=== PATIENT | male | born 1955 | race Caucasian/White ===

== ENCOUNTER 2020-09-16 09:06 | Outpatient (CLI) | payer OTHER, SELFPAY ==
--- NOTE | ~2020-09-16 | XR_ITS ---
EXAMINATION: XR shoulder LT min 2V EXAM DATE: 09/16/2020 09:33 INDICATION: No known recent injury provided at this time. Pain of the left shoulder. Rotator cuff syn drome. TECHNIQUE: The following left shoulder projections obtained: frontal projection with internal rotatio n, frontal projection with external rotation, Grashey, and axillary (4+ views). There is no prior st udy for comparison. FINDINGS: No evidence of left shoulder rotator cuff calcific tendinosis. There is mild glenohumeral, moderate acromioclavicular joint primary osteoarthritis. There are no acute fractures or dislocation s identified. There is no subcutaneous gas. The soft tissue is unremarkable. There are no radiopa que foreign bodies. 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 Reviewed, dictated and finalized at location A. AL PHOTOGRAPHER
[2020-09-16 09:36] LABS: Alanine Aminotransferase 48 U/L (4-50); Anion Gap 7 mmol/L (8-16); Blood Urea Nitrogen 16 mg/dL (9-20); Calcium 8.9 mg/dL (8.4-10.2); Carbon Dioxide 29 mmol/L (22-30); Chloride 103 mmol/L (98-107); Cholesterol 172 mg/dL (0-200); Estimated Glomerular Filt Rate > 60; Glucose 150 mg/dL (75-110); HDL Direct 35 mg/dL; Potassium 3.8 mmol/L (3.4-5.0); Sodium 139 mmol/L (137-145); Triglycerides 119 mg/dL (<150)
[2020-09-16 09:47] LABS: LDL Cholesterol Direct 120 mg/dL
[2020-09-16 10:11] LABS: Hemoglobin A1C 6.6 % (<5.7)
[2020-09-16 10:29] LABS: Creatinine Urine 159.3 mg/dL
[2020-09-16 10:40] LABS: MALB Creatinine Ratio < 3.8 mg/g (0-30); Microalbumin Urine Random < 6.0 mg/L (0-16.7)
== END 2020-09-16 09:07 | disposition home or self-care (01) ==
LOC: ANHLAB 09:09
PROVIDERS: PCP Family Medicine; Visit Provider Family Medicine
DX: E11.9 Type 2 diabetes mellitus without complications (principal); E78.00 Pure hypercholesterolemia, unspecified
CPT/HCPCS: 36415; 73030; 80048; 80061; 82043; 83036; 84460

== ENCOUNTER 2020-11-15 08:44 | Outpatient (CLI) | payer OTHER, SELFPAY | END 2020-11-15 08:45 | disposition home or self-care (01) | LOC: ANHAUDASC 08:45 | PROVIDERS: PCP Family Medicine; Visit Provider Family Medicine | DX: H90.3 Sensorineural hearing loss, bilateral (principal) | CPT/HCPCS: 92557; 92567 ==

== ENCOUNTER 2020-12-23 08:32 | Outpatient (CLI) | payer OTHER, SELFPAY ==
--- NOTE | ~2020-12-23 | MR_ITS ---
EXAMINATION: MR shoulder LT wo con DATE: 12/23/2020 09:24 INDICATION: Complete rotator cuff tear or rupture presenting with left shoulder pain TECHNIQUE: Magnetic resonance imaging (MRI) of the left shoulder was performed without intravenous co ntrast. Sequences included axial PD-weighted FS FSE, coronal oblique PD-weighted FS FSE, coronal obli que T2-weighted FS FSE, sagittal PD-weighted FS FSE, and sagittal T1-weighted SE. COMPARISON: Left shoulder radiographs dated 09/16/2020 FINDINGS: Coracoacromial arch: The acromion undersurface is curved in morphology (type II). The coracoacromial ligament is normal. M ild acromioclavicular osteoarthritis with small inferiorly directed osteophytes. Rotator cuff: Mild to moderate supraspinatus and infraspinatus tendinopathy. Full-thickness rotator cuff tear occur ring along the superior facet footplate of the supraspinatus tendon and conjoined portion of the supr aspinatus and infraspinatus tendons. The tear defect measures 1.6 cm AP and 1 cm medial to lateral. P artial-thickness articular sided tear extends additional 1 cm posteriorly into the infraspinatus tend on. The teres minor tendon is normal. Moderate subscapularis tendinopathy with small intrasubstance d elaminating split tear arising from the central aspect of the lesser tuberosity footplate with linear fluid signal extending 2 cm medially along the otherwise intact appearing tendon fibers. Asymmetric mild fatty atrophy of the teres minor muscle belly. Biceps tendon, glenoid labrum and glenohumeral cartilage: Long head of the biceps tendon is normal. Amorphous increased intrasubstance signal at the superior g lenoid labrum and along the free edge of the posterior superior labrum consistent with likely degener ative tearing. No well-defined linear labral tear appreciated. Glenohumeral cartilage is normal. Fluid: Small glenohumeral joint effusion with proportional extension into the recess of the joint space, the long head biceps tendon sheath and into the subacromial/subdeltoid bursa through the full-thickness rotator cuff tear. No loose osteochondral bodies. Bones: Normal marrow signal with no fracture or abnormal marrow replacing process. Minimal hypertrophic deutsch ge along the greater tuberosity. IMPRESSION: 1. Mild to moderate supraspinatus and infraspinatus tendinopathy with full-thickness tear involving t he entire supraspinatus tendon transitioning to a partial-thickness articular sided tear of the more posterior infraspinatus tendon. 2. Mild subscapularis tendinopathy with small mild intrasubstance delaminating split tear. 3. Degenerative tearing at the superior to posterior superior glenoid labrum. 4. Mild acromioclavicular osteoarthritis. Reviewed, dictated and finalized at location A. ER STOCK LAYER IMPRESSION: 1. Mild to moderate supraspinatus and infraspinatus tendinopathy with full-thic kness tear involving the entire supraspinatus tendon transitioning to a partial -thickness articular sided tear of the more posterior infraspinatus tendon. 2. Mild subscapularis tendinopathy with small mild intrasubstance delaminating split tear. 3. Degenerative tearing at the superior to posterior superior glenoid labrum. 4. Mild acromioclavicular osteoarthritis.
== END 2020-12-23 08:33 | disposition home or self-care (01) ==
PROVIDERS: Visit Provider Orthopaedic Surgery
DX: M75.122 Complete rotator cuff tear or rupture of left shoulder, not specified as traumatic (principal); M75.82 Other shoulder lesions, left shoulder; S43.432A Superior glenoid labrum lesion of left shoulder, initial encounter; M19.012 Primary osteoarthritis, left shoulder
CPT/HCPCS: 73221

== ENCOUNTER 2021-01-13 08:47 | Outpatient (CLI) | payer OTHER, SELFPAY ==
[2021-01-13 09:10] LABS: Hematocrit 42.5 % (42.0-52.0); Hemoglobin 14.8 g/dL (14.0-18.0); Mean Corpuscular HGB Conc 34.8 g/dl (32-36); Mean Corpuscular Hemoglobin 34.9 pg (26-34); Mean Corpuscular Volume 100.2 fl (80-100); Mean Platelet Volume 9.9 fl (7.4-10.4); Platelet Count Result 164 k/mm3 (150-375); Red Blood Count 4.24 M/mm3 (4.6-6.20); Red Cell Distribution Width 12.9 % (11.5-14.5); White Blood Count 4.7 K/mm3 (4.5-10.0)
[2021-01-13 09:12] LABS: Add Urine Microscopic? NO; Appearance Urine Clear (Clear); Bilirubin Urine Negative (Negative); Blood Urine Negative (Negative); Color Urine Yellow (Yellow); Glucose Urine UA Negative (Negative); Ketones Urine Negative (Negative); Leukocyte Esterase Ur Negative LEU/UL (NEGATIVE); Nitrate Urine Negative (Negative); Protein Urine Negative (Negative); Urobilinogen Urine Negative mg/dL (<2.0)
[2021-01-13 09:17] LABS: Alanine Aminotransferase 49 U/L (4-50); Albumin Level 4.2 g/dL (3.5-5.1); Alkaline Phosphatase 64 U/L (38-126); Anion Gap 8 mmol/L (8-16); Aspartate Amino Transferase 34 U/L (17-59); Bilirubin,Total 0.8 mg/dL (0.2-1.3); Blood Urea Nitrogen 13 mg/dL (9-20); Calcium 8.6 mg/dL (8.4-10.2); Carbon Dioxide 26 mmol/L (22-30); Chloride 104 mmol/L (98-107); Cholesterol 161 mg/dL (0-200); Estimated Glomerular Filt Rate > 60; Glucose 159 mg/dL (75-110); HDL Direct 35 mg/dL; Potassium 4.1 mmol/L (3.4-5.0); Sodium 138 mmol/L (137-145); Triglycerides 125 mg/dL (<150)
[2021-01-13 09:29] LABS: LDL Cholesterol Direct 101 mg/dL
[2021-01-13 09:47] LABS: Prostate Specific Antigen 0.9 ng/mL (< OR = 4.0); Thyroid Stimulating Hormone 0.995 uIU/mL (0.465-4.680)
== END 2021-01-13 08:48 | disposition home or self-care (01) ==
PROVIDERS: PCP Family Medicine; Visit Provider Family Medicine
DX: E78.5 Hyperlipidemia, unspecified (principal); I10 Essential (primary) hypertension; R35.1 Nocturia; Z00.00 Encounter for general adult medical examination without abnormal findings
CPT/HCPCS: 36415; 80053; 80061; 81003; 84153; 84443; 85027

== ENCOUNTER 2021-01-24 08:00 | Outpatient (RCR) | payer OTHER, SELFPAY | END 2021-02-27 23:59 | disposition home or self-care (01) | LOC: ANHAUDASC 08:00 | PROVIDERS: Family Provider Family Medicine; PCP Family Medicine; Visit Provider Family Medicine | DX: Z46.1 Encounter for fitting and adjustment of hearing aid (principal) | CPT/HCPCS: 99199; V5261; V5264 ==

== ENCOUNTER 2021-02-07 09:03 | Outpatient (CLI) | payer OTHER, SELFPAY ==
--- NOTE | ~2021-02-07 | NM_ITS ---
EXAMINATION: NM vanessa stress w perfusion DATE: 02/07/2021 11:39 INDICATION: Dyspnea on exertion. TECHNIQUE: Rest images were obtained following intravenous administration of 9 mCi Tc99m tetrofosmin (Myoview). The patient was infused intravenously with Lexiscan (regadenoson). Then, 27.2 mCi Tc99m te trofosmin (Myoview) was administered intravenously, and stress images were obtained. Data was reconst ructed into short axis and horizontal and vertical long axis SPECT images. Gated SPECT images were al so obtained. COMPARISON: CT abdomen and pelvis 07/16/2019 FINDINGS: There is no definite reversible or fixed perfusion abnormality to suggest ischemia or infar ction. There is no segmental wall motion abnormality. Left ventricular ejection fraction measures > 70%. IMPRESSION: 1. No definite ischemia or infarct. 2. Normal left ventricular ejection fraction measuring >70%. Reviewed, dictated and finalized at location A.
--- NOTE | 2021-02-07 09:09 | EST_ITS ---
Patient Info Name: Neymar De La Garza Age: 65 years : 1955 Gender: Male Ht: 66 in Wt: 299 lbs BSA: 2.59 m2 Exam Date: 02/07/2021 10:32 AM Exam Location: [facility] Patient Status: Outpatient Admit Date: 02/07/2021 Staff Ordering Physician: Royce Elizondo MD Attending Provider: Royce Elizondo MD Exercise Technologist: Milka Seymour CT Exercise Physician: Dejon Fowler DO Exam Type: CA stress vanessa w NM Study Info A regadenoson stress test was performed. Summary 1. 1. Negative lexiscan stress test for ischemic ST changes by ECG criteria. 2. 2. Baseline hypertension. 3. 3. Nuclear scan to follow and will be reported separately. Please correlate with it. 4. 4. Patient informed of the above results. Protocol: Lexiscan Stress ECG Details Stage: REST Duration (min): 11 min : 15 sec HR (bpm): 64 SBP (mmHg): 150 DBP (mmHg): 81 Stage: STAGE 1 Duration (min): 1 min : 0 sec HR (bpm): 74 SBP (mmHg): 155 DBP (mmHg): 107 Stage: RECOVERY Duration (min): 1 min : 0 sec HR (bpm): 76 SBP (mmHg): 155 DBP (mmHg): 107 Stage: RECOVERY Duration (min): 2 min : 0 sec HR (bpm): 76 SBP (mmHg): 155 DBP (mmHg): 107 Stage: RECOVERY Duration (min): 3 min : 0 sec HR (bpm): 73 SBP (mmHg): 147 DBP (mmHg): 95 Stage: RECOVERY Duration (min): 3 min : 2 sec HR (bpm): 73 SBP (mmHg): 147 DBP (mmHg): 95 Rest HR: 64 bpm Peak HR: 80 bpm Rest Sys BP: 150 mmHg Peak Sys BP: 155 mmHg Max Pred HR: 157 bpm % Max Pred HR: 51 % Target HR: 133 bpm Max RPP: 12,400 bpm*mmHg Termination Reason: Completed protocol Cardiac Symptoms: Shortness of breath Total Time: 1 min : 0 sec Rest Coronado BP: 81 mmHg Peak Coronado BP: 107 mmHg Total Dose: 0.4 mg Resting ECG Sinus rhythm with sinus arrhythmia. Stress ECG No ST changes. Arrhythmias None. Report Signatures
== END 2021-02-07 09:04 | disposition home or self-care (01) ==
PROVIDERS: PCP Family Medicine; Visit Provider Family Medicine
DX: R06.00 Dyspnea, unspecified (principal); R07.9 Chest pain, unspecified
CPT/HCPCS: 78452; 93017; A9502

== ENCOUNTER 2021-05-17 08:52 | Outpatient (CLI) | payer OTHER, SELFPAY ==
--- NOTE | ~2021-05-17 | CT_ITS ---
EXAMINATION: CT chest high resolution [facility] EXAM DATE: 05/17/2021 10:19 INDICATION: B94.8 - Sequelae of other specified infectious and parasitic diseases. Shortness of breat h and cough post COVID. TECHNIQUE: Spiral CT of the chest without contrast. HRCT. Axial, coronal and sagittal images of the chest were reviewed. Coronal maximum intensity pixel images of chest reviewed. The dose-length prod uct (DLP) for this examination was 1049.52 mGy-cm. The exposure was tailored according to patient si ze (auto mA exposure control), and iterative reconstruction (ASIR) was used as additional dose reduct ion technique. There is no prior study for comparison. FINDINGS: No intralobular septal thickening on the HRCT. No focal airspace disease. There are no ple ural or pericardial effusions. Tracheobronchial tree is patent. There is no mediastinal, hilar or axillary lymphadenopathy. There is no pneumothorax. Heart normal in size. There is moderate co ronary arterial calcification, arterial sclerosis. There is hepatic steatosis. There is thoracic sp ondylosis without osteoblastic or osteolytic lesions identified. IMPRESSION: 1. Clear lungs. 2. Hepatic steatosis. Reviewed, dictated and finalized at location B.
--- NOTE | 2021-05-21 10:37 | WPDSIXMINUTE ---
Six Minute Walk Procedure Procedure Performed Pulmonary Stress Test (6 min walk) Six Minute Walk Six Minute Walk: DOS: 05/17/2021 REQUESTING: Dr Elia Gonzalez REASON FOR TESTING: Dyspnea SIX MINUTE WALK This study was conducted per ATS guidelines. The room air saturation was 96% and the pulse was 53. The patient walked 6 minutes without stopping completing 1200 ft/ 365.7 m. Saturation varied between 93 and 98%. Maximum pulse is 95. IMPRESSION: Normal walk study without need for supplemental oxygen with exertion.
--- NOTE | 2021-05-21 10:39 | WPDPFTINT ---
PFT Procedure Performed PFT Procedure Performed Spirometry with Pre/Post Bronchodilator Plethysmography (Lung Vol) Diffusing Cap (DLCO) Flow Vol Loop PFT Interpretation DOS: 05/17/2021 REQUESTING: Dr. Elia Gonzalez REASON FOR TESTING: Dyspnea PULMONARY FUNCTION TESTS Results are reliable. Spirometry: FEV1 is 95% predicted, 3 L. FVC is 89%. The FEV1/FVC ratio is normal. There is no response to administration of bronchodilator. Lung volumes: Total lung capacity is 99%. ERV is very low 12% consistent with elevated body mass index. Residual volume is normal. Normal RV/TLC 34%. Diffusion: DLCO 90%, normal. Flow volume loop: There is mild flattening of the inspiratory limb which suggests borderline variable extrathoracic obstruction. There is also a saw tooth pattern on the inspiratory limb. IMPRESSION: Normal spirometry, lung volumes and diffusion. Flattening of the inspiratory limb indicates borderline variable extrathoracic obstruction. Clinical correlation is recommended. Radha Ernst MD
== END 2021-05-17 08:53 | disposition home or self-care (01) ==
LOC: ANHPFT 08:53
PROVIDERS: PCP Family Medicine; Visit Provider Internal Medicine Pulmonary Disease
DX: R06.00 Dyspnea, unspecified (principal); B94.8 Sequelae of other specified infectious and parasitic diseases; J40 Bronchitis, not specified as acute or chronic; K76.0 Fatty (change of) liver, not elsewhere classified; Z72.0 Tobacco use; Z86.16 Personal history of COVID-19
CPT/HCPCS: 71250; 94060; 94618; 94726; 94729

== ENCOUNTER 2021-08-04 08:44 | Outpatient (CLI) | payer OTHER, SELFPAY ==
--- NOTE | ~2021-08-04 | MR_ITS ---
EXAMINATION: MR lumbar spine wo con DATE: 08/04/2021 08:32 INDICATION: Spinal stenosis, lumbar region. TECHNIQUE: Magnetic resonance imaging (MRI) of the lumbar spine was performed without intravenous con trast. Sequences included sagittal T2-weighted FSE, sagittal T2-weighted FS FSE, sagittal T1-weighted FSE, and axial T2-weighted FSE. COMPARISON: Lumbar spine MRI 10/17/2018 FINDINGS: There is 6 degrees levocurvature of lumbar spine. There is 3 mm retrolisthesis of L3 on L4 and L4-L5 and 6 mm anterolisthesis of L5 on S1. There is mild chronic anterior wedging of L1 and L2 v ertebral bodies. There is mildly decreased disc height at L1-L2 and severely decreased disc height fr om L2-L3 through L4-L5 with endplate remodeling. The distal spinal cord signal intensity is normal. T he conus medullaris is at L1. The following disc levels are specifically discussed: L1-L2: There is a left central extrusion. There is mild bilateral facet joint osteoarthritis. There i s no neural foraminal stenosis. There is mild central canal stenosis. L2-L3: The disc is bulging and has an annular fissure. There is mild bilateral facet joint osteoarthr itis. There is mild bilateral neural foraminal stenosis. There is mild central canal stenosis. L3-L4: The disc is bulging and has an annular fissure. There is moderate bilateral facet joint osteoa rthritis. There is moderate bilateral neural foraminal stenosis. There is mild central canal stenosis . L4-L5: The disc is bulging and has an annular fissure. There is severe bilateral facet joint osteoart hritis. There is severe bilateral neural foraminal stenosis. There is mild central canal stenosis. Th ere is moderate stenosis of left lateral recess. L5-S1: The disc does not extend beyond the endplate margin. There is severe bilateral facet joint ost eoarthritis. There is moderate bilateral neural foraminal stenosis. There is no central canal stenosi s. IMPRESSION: 1. Severe lumbar spondylosis, worsened from 10/17/2018. Reviewed, dictated and finalized at location A.
[2021-08-04 09:23] LABS: Alanine Aminotransferase 52 U/L (4-50); Albumin Level 4.5 g/dL (3.5-5.1); Alkaline Phosphatase 65 U/L (38-126); Anion Gap 9 mmol/L (8-16); Aspartate Amino Transferase 34 U/L (17-59); Bilirubin,Total 0.8 mg/dL (0.2-1.3); Blood Urea Nitrogen 19 mg/dL (9-20); Calcium 8.9 mg/dL (8.4-10.2); Carbon Dioxide 28 mmol/L (22-30); Chloride 103 mmol/L (98-107); Estimated Glomerular Filt Rate > 60; Glucose 174 mg/dL (65-110); Potassium 4.5 mmol/L (3.4-5.0); Sodium 140 mmol/L (137-145)
[2021-08-04 09:24] LABS: Hemoglobin A1C 7.1 % (<5.7)
== END 2021-08-04 08:45 | disposition home or self-care (01) ==
PROVIDERS: PCP Family Medicine; Visit Provider Family Medicine
DX: M48.061 Spinal stenosis, lumbar region without neurogenic claudication (principal); G89.29 Other chronic pain; R53.83 Other fatigue; I10 Essential (primary) hypertension; R73.01 Impaired fasting glucose; M54.50 Low back pain, unspecified; M47.896 Other spondylosis, lumbar region
CPT/HCPCS: 36415; 72148; 80053; 83036; 84443

== ENCOUNTER 2021-09-07 20:00 | Outpatient (CLI) | payer OTHER, SELFPAY ==
--- NOTE | 2021-10-01 20:34 | WPDSLEEPSTUD ---
Sleep Study Date of Study: 09/07/21 Ordering Provider: John Gonzalez MD Interpreting Physician: Radha Ernst MD Sleep Study Type: Split Polysomnogram Height: 1.7 m Weight: 135.707 kg Body Mass Index: 46.8 Neck Circumference (inches): 19 [place]: 4 Reason for Sleep Study Obstructive sleep apnea on CPAP 10 cm, no change in treatment for years *05/04/2013 split night sleep study, AHI 102.6, optimal pressure 13 cm Sleep History Neymar De La Garza is a 65 year old man with obstructive sleep apnea on CPAP since 2012, does not have a [employer] company, and has not had follow up for this issue. He uses a nasal mask and benefits from using his device. He reports being on 10 cm. His last sleep study from 2012 shows that he was on 13 cm. He rarely awakens from sleep feeling short of breath. He does not awaken at night with heartburn, belching or coughing. snores and occasionally it is others to complain about it. He occasionally has trouble sleeping with a cold. He rarely wakes up gasping for breath at night. He rarely has breathing problems at night reported to him by others. He does not sweat excessively at night. He rarely notices his heart pounding or beating irregularly at night. He does not fall asleep during the day, does not fall asleep involuntarily or while driving. He does not have loss of muscle tone with strong emotion. He does not have daytime difficulties due to excessive sleepiness. He does not feel paralyzed on waking or falling asleep. He does not have vivid dreamlike scenes upon awakening or falling asleep. He does not feel afraid to go to sleep. He does not have nightmares. He rarely remembers his dreams. He does not have racing thoughts, feelings of sadness, depression or anxiety. He does not have muscular tension. He rarely notices parts of his body jerking. He occasionally kicks at night. He does not have crawling or aching feelings in his legs. He rarely has any kind of leg pain at night. He does not have morning jaw pain. He does not grind his teeth during sleep. He occasionally is bothered by pain during the day, occasionally is awakened by pain at night and occasionally wakes up feeling stiff in the morning with sore achy muscles and pain in the neck and spine. He has fatigue. . Normal bedtime is 10:30 p.m. falling asleep within 5 minutes typically waking 1-2 times at night to urinate and he returns to sleep within 5-10 minutes. He wakes the morning at 6:30 a.m.. His weekend schedule is similar, also going to bed at 10:30 p.m. waking at 7:30 a.m. in the morning. He estimates getting 6-8 hours of sleep at night. He does not take naps in the afternoon or evening. A short nap is not refreshing. Feels better in the morning compared to other times of day. He developed COVID in June of 2020. 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 He has a raspy voice. Habits: He never smoked tobacco. Caffeine 2 cups a day. No alcohol or recreational drugs. [facility] Past Medical History Medical History Chronic low back pain Chronic neck pain Complete tear of left rotator cuff Hyperlipidemia Hypertension IFG (impaired fasting glucose) Obesity due to excess calories BRIANNA (obstructive sleep apnea) Surgical History Surgical History History of bowel resection (~06/18/12) History of hernia repair (~12/10/14) Family History Family History Unknown Cancer Heart attack Hypertension Arthritis Father Malignant neoplasm of prostate Mother Cancer of unknown origin Social History Social History Social History: Second hand tobacco smoke exposure: No Alcohol intake: current Alcohol use details: Once a month Substance use: nev
[2021-10-01 21:19] VITALS: BMI 46.8
== END 2021-09-08 08:30 | disposition home or self-care (01) ==
LOC: ANHCSM 09-10 07:36
PROVIDERS: PCP Family Medicine; Visit Provider Internal Medicine Pulmonary Disease
DX: G47.33 Obstructive sleep apnea (adult) (pediatric) (principal); Z68.42 Body mass index [BMI] 45.0-49.9, adult
CPT/HCPCS: 95811

== ENCOUNTER 2021-09-21 11:28 | Outpatient (CLI) | payer OTHER, SELFPAY ==
[2021-09-21 12:10] LABS: Alanine Aminotransferase 52 U/L (4-50); Albumin Level 4.5 g/dL (3.5-5.1); Alkaline Phosphatase 73 U/L (38-126); Anion Gap 10 mmol/L (8-16); Aspartate Amino Transferase 33 U/L (17-59); Bilirubin,Total 0.5 mg/dL (0.2-1.3); Blood Urea Nitrogen 23 mg/dL (9-20); Calcium 9.2 mg/dL (8.4-10.2); Carbon Dioxide 23 mmol/L (22-30); Chloride 102 mmol/L (98-107); Estimated Glomerular Filt Rate > 60; Glucose 127 mg/dL (65-110); Potassium 3.9 mmol/L (3.4-5.0); Sodium 135 mmol/L (137-145)
== END 2021-09-21 11:29 | disposition home or self-care (01) ==
LOC: ANHLAB 11:30
PROVIDERS: PCP Family Medicine; Visit Provider Physician Assistant
DX: E11.9 Type 2 diabetes mellitus without complications (principal); I10 Essential (primary) hypertension
CPT/HCPCS: 36415; 80053

== ENCOUNTER 2021-09-25 08:25 | Outpatient (CLI) | payer OTHER, SELFPAY ==
--- NOTE | 2021-09-25 11:00 | NEURO_ITS ---
Impression: # Complains of numbness of hands. # Severe right Carpal Tunnel Syndrome with minimal dispersed responses. # Severe left Carpal Tunnel Syndrome. # Severe bilateral ulnar neuropathy across the elbows, right more than left. # Abnormal needle/EMG exam with neurogenic changes in APB, ADM, 1st DI and Pronator Teres. Nerve Conduction Studies Anti Sensory Summary Table Stim Site NR Peak (ms) P-T Amp (?V) Site1 Site2 Delta-P (ms) Dist (cm) Boo (m/s) Left Median Anti Sensory (2-3nd Digit) NO RESPONSE Wrist NR Wrist 2-3nd Digit 14.0 Wrist NR Wrist 2-3nd Digit 14.0 Right Median Anti Sensory (2-3nd Digit) Wrist 6.3 15.0 Wrist 2-3nd Digit 6.3 14.0 22 Wrist 4.4 18.0 Wrist 2-3nd Digit 6.3 14.0 22 Left Radial Anti Sensory (Base 1st Digit) Wrist 2.1 47.2 Wrist Base 1st Digit 2.1 0.0 Right Radial Anti Sensory (Base 1st Digit) Wrist 2.6 10.1 Wrist Base 1st Digit 2.6 0.0 Left Ulnar Anti Sensory (5th Digit) Wrist 2.9 2.9 Wrist 5th Digit 2.9 14.0 48 Right Ulnar Anti Sensory (5th Digit) Wrist 4.8 19.3 Wrist 5th Digit 4.8 14.0 29 Motor Summary Table Stim Site NR Onset (ms) O-P Amp (mV) Site1 Site2 Delta-0 (ms) Dist (cm) Boo (m/s) Left Median Motor (Abd Poll Brev) Wrist 10.8 1.2 Elbow Wrist 10.8 30.0 28 Elbow 21.6 0.3 Right Median Motor (Abd Poll Brev) NO RESPONSE Wrist NR Elbow Wrist 26.0 Elbow NR Left Ulnar Motor (Abd Dig Minimi) Wrist 4.2 2.0 A Elbow Wrist 12.5 31.0 25 A Elbow 16.7 1.5 Right Ulnar Motor (Abd Dig Minimi) DISPERSED RESPONSE Wrist NR A Elbow Wrist 0.0 A Elbow NR F Wave Studies NR F-Lat (ms) L-R F-Lat (ms) Left Median (Mrkrs) (Abd Poll Brev) 31.99 Right Median (Mrkrs) (Abd Poll Brev) NO RESPONSE NR Left Ulnar (Mrkrs) (Abd Dig Min) 28.69 Right Ulnar (Mrkrs) (Abd Dig Min) DISPERSED RESPONSE NR EMG Side Muscle Nerve Root Ins Act Fibs Amp Dur Recrt Comment Right 1stDorInt Ulnar C8-T1 Nml Nml Decr >12ms Reduced Right Ext Indicis Radial (Post Int) C7-8 Nml Nml Nml Nml Nml Right Ext Digitorum Radial (Post Int) C7-8 Nml Nml Nml Nml Nml Right BrachioRad Radial C5-6 Nml Nml Nml Nml Nml Right PronatorTeres Median C6-7 Nml Nml Decr >12ms Reduced Right Abd Poll Brev Median C8-T1 Nml Nml Decr >12ms Reduced Left 1stDorInt Ulnar C8-T1 Nml Nml Decr >12ms Reduced Left Ext Indicis Radial (Post Int) C7-8 Nml Nml Nml Nml Nml Left Ext Digitorum Radial (Post Int) C7-8 Nml Nml Nml Nml Nml Left BrachioRad Radial C5-6 Nml Nml Nml Nml Nml Left PronatorTeres Median C6-7 Nml Nml Decr >12ms Reduced Left Abd Poll Brev Median C8-T1 Nml Nml Decr >12ms Reduced Right ABD Dig Min Ulnar C8-T1 Nml Nml Decr >12ms Reduced Left ABD Dig Min Ulnar C8-T1 Nml Nml Decr >12ms Reduced MTDD
== END 2021-09-25 08:26 | disposition home or self-care (01) ==
LOC: ANHNEURO 08:26
PROVIDERS: PCP Family Medicine; Visit Provider Family Medicine
DX: G56.23 Lesion of ulnar nerve, bilateral upper limbs (principal); G56.03 Carpal tunnel syndrome, bilateral upper limbs
CPT/HCPCS: 95886; 95911

== ENCOUNTER 2021-12-19 09:28 | Outpatient (CLI) | payer OTHER, SELFPAY ==
[2021-12-19 09:54] LABS: Hematocrit 42.8 % (42.0-52.0); Hemoglobin 14.7 g/dL (14.0-18.0); Mean Corpuscular HGB Conc 34.3 g/dl (32-36); Mean Corpuscular Hemoglobin 35.1 pg (26-34); Mean Corpuscular Volume 102.1 fl (80-100); Platelet Count Result 163 k/mm3 (150-375); Red Blood Count 4.19 M/mm3 (4.6-6.20); White Blood Count 4.9 K/mm3 (4.5-10.0)
[2021-12-19 10:01] LABS: Add Urine Microscopic? NO; Appearance Urine Clear (Clear); Bilirubin Urine Negative (Negative); Blood Urine Negative (Negative); Color Urine Yellow (Yellow); Glucose Urine UA Negative (Negative); Ketones Urine Negative (Negative); Leukocyte Esterase Ur Negative LEU/UL (NEGATIVE); Nitrate Urine Negative (Negative); Protein Urine Negative (Negative); Specific Grav Ur 1.017 (1.001-1.035); Urobilinogen Urine Negative mg/dL (<2.0)
[2021-12-19 10:07] LABS: Alanine Aminotransferase 42 U/L (4-50); Albumin Level 4.3 g/dL (3.5-5.1); Alkaline Phosphatase 76 U/L (38-126); Anion Gap 10 mmol/L (8-16); Aspartate Amino Transferase 37 U/L (17-59); Bilirubin,Total 0.6 mg/dL (0.2-1.3); Blood Urea Nitrogen 20 mg/dL (9-20); Carbon Dioxide 28 mmol/L (22-30); Chloride 101 mmol/L (98-107); Cholesterol 162 mg/dL (0-200); Estimated Glomerular Filt Rate > 60; Glucose 145 mg/dL (65-110); HDL Direct 34 mg/dL; Potassium 4.4 mmol/L (3.4-5.0); Sodium 139 mmol/L (137-145); Triglycerides 93 mg/dL (<150)
[2021-12-19 10:18] LABS: LDL Cholesterol Direct 106 mg/dL
[2021-12-19 10:25] LABS: Hemoglobin A1C 6.1 % (<5.7)
[2021-12-19 10:36] LABS: Prostate Specific Antigen 0.8 ng/mL (< OR = 4.0)
[2021-12-19 10:53] LABS: Iron 107 ug/dL (49-181)
[2021-12-19 11:02] LABS: Percent Iron Saturation 35 % (20-50)
[2021-12-19 11:25] LABS: Hepatitis B Surface Antigen Negative (Negative)
[2021-12-19 11:31] LABS: HAV RESULT Negative (Negative); Hepatitis B Core IgM Result Negative (Negative)
[2021-12-19 11:43] LABS: Hepatitis C Virus Antibody Negative (Negative)
== END 2021-12-19 09:29 | disposition home or self-care (01) ==
PROVIDERS: PCP Family Medicine; Visit Provider Physician Assistant
DX: E11.9 Type 2 diabetes mellitus without complications (principal); E78.5 Hyperlipidemia, unspecified; G47.33 Obstructive sleep apnea (adult) (pediatric); I10 Essential (primary) hypertension; K76.0 Fatty (change of) liver, not elsewhere classified; R06.00 Dyspnea, unspecified
CPT/HCPCS: 36415; 80053; 80061; 80074; 81003; 82728; 83036; 83540; 83550; 84153; 84443; 85027; 86038

== ENCOUNTER 2022-02-25 00:20 | Day surgery (SDC) | payer OTHER, SELFPAY ==
[2022-02-11 12:52] VITALS: BMI 40.7
[2022-02-25 07:00] VITALS: BP 147/82; PULSE 85; RESP 18; TEMP 36.9; O2SAT 100
[2022-02-25] MEDS: LACTATED RINGERS 1,000 ML 150 ML IV CONT (07:09)
--- NOTE | 2022-02-25 07:15 | WPDANESEPPF ---
Anes - Initial Pre Proc Eval Procedure: Operation Date: 02/25/22 08:00 Proposed Procedures p Screening Colonoscopy - Chico Freitas MD Date/Time: 02/25/22 07:15 Surgeon: Chico Freitas MD Pre Op Diagnosis: neoplasm screening Patient Data Age: 66 Gender: M Height: 1.7 m Weight: 117.6 kg Last Vital Signs Temp 36.9 C 02/25/22 07:00 Pulse 85 02/25/22 07:00 Resp 18 02/25/22 07:00 BP 147/82 H 02/25/22 07:00 Pulse Ox 100 02/25/22 07:00 Allergies Allergy/AdvReac Type Severity Reaction Status Date / Time hydromorphone Allergy Unknown BP bottoms Verified 02/25/22 06:58 out Penicillins Allergy Unknown Hives Verified 02/25/22 06:58 Home Medications Medication Instructions Recorded Confirmed Type aspirin 81 mg chewable tablet 81 mg PO DAILY 12/15/20 02/25/22 History calcium polycarbophil 625 mg tablet 1,250 mg PO DAILY 12/15/20 02/25/22 History mineral oil 15 ml PO DAILY 12/15/20 02/25/22 History amlodipine 10 mg tablet 10 mg PO DAILY #90 tablet 07/17/21 02/25/22 Rx atorvastatin 20 mg tablet 20 mg PO DAILY #90 tablet 07/17/21 02/25/22 Rx diclofenac sodium 75 mg 75 mg PO BID #180 tablet 07/17/21 02/25/22 Rx tablet,delayed release hydrochlorothiazide 25 mg tablet 25 mg PO DAILY #90 tablet 07/17/21 02/25/22 Rx quinapril 40 mg tablet 40 mg PO BID #180 tablet 12/17/21 02/25/22 Rx metoprolol succinate 50 mg 50 mg PO DAILY #90 tablet 02/04/22 02/25/22 Rx tablet,extended release 24 hr Patient hx anesthesia problems: none Family hx anesthesia problems: none Results Review: All pre-operative results and documents have been reviewed as part of the pre-operative evaluation. [facility] Past Medical History Medical History Chronic low back pain Chronic neck pain Complete tear of left rotator cuff Hyperlipidemia Hypertension IFG (impaired fasting glucose) Obesity due to excess calories BRIANNA (obstructive sleep apnea) Surgical History Surgical History History of bowel resection (~06/18/12) History of hernia repair (~12/10/14) Family History Family History Unknown Cancer Heart attack Hypertension Arthritis Father Malignant neoplasm of prostate Mother Cancer of unknown origin Social History Social History Social History: Smoking status: Never smoker Second hand tobacco smoke exposure: No Alcohol intake: current Drinks per week: 1 Alcohol use details: beer Substance use: never Substance use type: does not use Living arrangements: with family Gender identity (if verbalized by the patient): Male Sexual Orientation (if Verbalized by the Patient): Straight or Heterosexual Spiritual care concerns: No Anes - Eval Final PreProcedure Day of Procedure 02/25/22 07:15 Patient weight: morbidly obese Heart: regular rate and rhythm Airway: Mallampati scale class III Neurological: alert and oriented Last oral intake: >/= 8 hours ASA classification: III Emergent: no Anesthetic plan: proceed Anesthesia type and monitoring: general GIVS and standard monitoring Results Review: All pre-operative results and documents have been reviewed as part of the pre-operative evaluation. Informed Consent: The patient's anesthetic plan and its attendant risks and benefits were discussed with the patient/family/POA. Questions were solicited and answers provided to the satisfaction of the patient/family/POA.
--- NOTE | 2022-02-25 07:18 | WPDGICN ---
Assessment and Plan Assessment and plan (1) Encounter for screening colonoscopy: Code(s): Z12.11 - Encounter for screening for malignant neoplasm of colon Status: Acute Assessment and Plan: Patient presents for screening colonoscopy. Appears to be at average risk for colon polyps. GI Consult Note Consult date/time: 02/25/22 07:18 HPI: Neymar De La Garza is a 66 year old male Presents for screening colonoscopy. Patient reports that his current weight appetite bowel movements are normal. He denies abdominal pain. He has had no bleeding. Last colonoscopy 2009. Patient does have a history of partial colectomy for diverticulitis for which she is healed well. He presents today for neoplasia screening. Review of Systems Review of Systems: All systems reviewed & are unremarkable except as noted in HPI and below PMFSH Past Medical History Medical History Chronic low back pain Chronic neck pain Complete tear of left rotator cuff Hyperlipidemia Hypertension IFG (impaired fasting glucose) Obesity due to excess calories BRIANNA (obstructive sleep apnea) Surgical History Surgical History History of bowel resection (~06/18/12) History of hernia repair (~12/10/14) Family History Family History Unknown Cancer Heart attack Hypertension Arthritis Father Malignant neoplasm of prostate Mother Cancer of unknown origin Social History Social History Social History: Smoking status: Never smoker Second hand tobacco smoke exposure: No Alcohol intake: current Drinks per week: 1 Alcohol use details: beer Substance use: never Substance use type: does not use Living arrangements: with family Gender identity (if verbalized by the patient): Male Sexual Orientation (if Verbalized by the Patient): Straight or Heterosexual Spiritual care concerns: No Meds Home Medications and Allergies Home Medications Medication Instructions Recorded Confirmed Type aspirin 81 mg chewable tablet 81 mg PO DAILY 12/15/20 02/25/22 History calcium polycarbophil 625 mg tablet 1,250 mg PO DAILY 12/15/20 02/25/22 History mineral oil 15 ml PO DAILY 12/15/20 02/25/22 History amlodipine 10 mg tablet 10 mg PO DAILY #90 tablet 07/17/21 02/25/22 Rx atorvastatin 20 mg tablet 20 mg PO DAILY #90 tablet 07/17/21 02/25/22 Rx diclofenac sodium 75 mg 75 mg PO BID #180 tablet 07/17/21 02/25/22 Rx tablet,delayed release hydrochlorothiazide 25 mg tablet 25 mg PO DAILY #90 tablet 07/17/21 02/25/22 Rx quinapril 40 mg tablet 40 mg PO BID #180 tablet 12/17/21 02/25/22 Rx metoprolol succinate 50 mg 50 mg PO DAILY #90 tablet 02/04/22 02/25/22 Rx tablet,extended release 24 hr Allergies Allergy/AdvReac Type Severity Reaction Status Date / Time hydromorphone Allergy Unknown BP bottoms Verified 02/25/22 06:58 out Penicillins Allergy Unknown Hives Verified 02/25/22 06:58 Vital Signs Vital Signs - 24 hr 02/25/22 07:00 Temperature 98.4 F Pulse Rate 85 Respiratory Rate 18 Blood Pressure 147/82 H Pulse Oximetry 100 Exam Narrative: For physical exam reveals patient to be alert. Vital signs stable. HEENT exam is unremarkable. Patient is anicteric. Lungs are clear to auscultation and percussion. Heart is without murmur or extra sounds. Abdomen bowel sounds are present soft nontender with no organomegaly. Digital external rectal exam is normal.
[2022-02-25 08:15] VITALS: BP 101/58; PULSE 66; RESP 19; O2SAT 97
[2022-02-25 08:25] VITALS: BP 108/63; PULSE 68; RESP 16; O2SAT 98
[2022-02-25 08:35] VITALS: BP 130/78; PULSE 68; RESP 16; O2SAT 95
== END 2022-02-25 08:42 | disposition home or self-care (01) ==
PROVIDERS: PCP Family Medicine; Visit Provider Internal Medicine Gastroenterology
PROC: 0DJD8ZZ Inspection of Lower Intestinal Tract, Via Natural or Artificial Opening Endoscopic (ICD-10-PCS; CPT 45378; principal; 2022-02-25 08:00)
DX: Z12.11 Encounter for screening for malignant neoplasm of colon (principal); K57.30 Diverticulosis of large intestine without perforation or abscess without bleeding; I10 Essential (primary) hypertension; E78.5 Hyperlipidemia, unspecified; G47.33 Obstructive sleep apnea (adult) (pediatric); R73.01 Impaired fasting glucose; Z79.82 Long term (current) use of aspirin; E66.01 Morbid (severe) obesity due to excess calories; Z68.41 Body mass index [BMI] 40.0-44.9, adult
CPT/HCPCS: 45378; J2704; J7120

== ENCOUNTER 2022-04-20 07:20 | Outpatient (CLI) | payer OTHER, SELFPAY ==
[2022-04-20 08:26] LABS: Alanine Aminotransferase 46 U/L (6-50); Albumin Level 4.2 g/dL (3.5-5.1); Alkaline Phosphatase 75 U/L (38-126); Anion Gap 4 mmol/L (8-16); Aspartate Amino Transferase 32 U/L (17-59); Bilirubin,Total 0.7 mg/dL (0.2-1.3); Blood Urea Nitrogen 19 mg/dL (9-20); Calcium 8.6 mg/dL (8.4-10.2); Carbon Dioxide 30 mmol/L (22-30); Chloride 104 mmol/L (98-107); Estimated Glomerular Filt Rate > 60; Glucose 126 mg/dL (65-110); Hemoglobin A1C 5.8 % (<5.7); Potassium 4.1 mmol/L (3.4-5.0); Sodium 138 mmol/L (137-145)
== END 2022-04-20 07:21 | disposition home or self-care (01) ==
LOC: ANHLAB 07:22
PROVIDERS: PCP Family Medicine; Visit Provider Physician Assistant
DX: K76.0 Fatty (change of) liver, not elsewhere classified (principal); E11.9 Type 2 diabetes mellitus without complications; I10 Essential (primary) hypertension
CPT/HCPCS: 36415; 80053; 83036

== ENCOUNTER 2022-08-17 08:28 | Outpatient (CLI) | payer OTHER, SELFPAY ==
[2022-08-17 09:00] LABS: Alanine Aminotransferase 44 U/L (6-50); Albumin Level 4.3 g/dL (3.5-5.1); Alkaline Phosphatase 74 U/L (38-126); Anion Gap 10 mmol/L (8-16); Aspartate Amino Transferase 30 U/L (17-59); Bilirubin,Total 0.5 mg/dL (0.2-1.3); Blood Urea Nitrogen 20 mg/dL (9-20); Calcium 8.9 mg/dL (8.4-10.2); Carbon Dioxide 26 mmol/L (22-30); Chloride 103 mmol/L (98-107); Estimated Glomerular Filt Rate > 60; Glucose 133 mg/dL (65-110); Potassium 4.2 mmol/L (3.4-5.0); Sodium 139 mmol/L (137-145)
[2022-08-17 09:29] LABS: Hemoglobin A1C 6.6 % (<5.7)
== END 2022-08-17 08:29 | disposition home or self-care (01) ==
PROVIDERS: PCP Family Medicine; Visit Provider Physician Assistant
DX: I10 Essential (primary) hypertension (principal); E11.9 Type 2 diabetes mellitus without complications
CPT/HCPCS: 36415; 80053; 83036

== ENCOUNTER 2023-07-04 07:08 | Outpatient (CLI) | payer MEDICARE, SELFPAY ==
[2023-07-04 08:12] LABS: Appearance Urine Clear (Clear); Bilirubin Urine Negative (Negative); Blood Urine Negative (Negative); Color Urine Yellow (Yellow); Glucose Urine UA Negative (Negative); Ketones Urine Negative (Negative); Leukocyte Esterase Ur Negative LEU/UL (NEGATIVE); Nitrate Urine Negative (Negative); Protein Urine Negative (Negative); Specific Grav Ur 1.019 (1.001-1.035)
[2023-07-04 08:14] LABS: Hematocrit 43.1 % (42.0-52.0); Hemoglobin 14.4 g/dL (14.0-18.0); Mean Corpuscular HGB Conc 33.4 g/dl (32-36); Mean Corpuscular Hemoglobin 34.9 pg (26-34); Mean Corpuscular Volume 104.4 fl (80-100); Mean Platelet Volume 12.1 fl (7.4-10.4); Platelet Count Result 123 k/mm3 (150-375); Red Blood Count 4.13 M/mm3 (4.6-6.20); Red Cell Distribution Width 13.2 % (11.5-14.5); White Blood Count 5.8 K/mm3 (4.5-10.0)
[2023-07-04 08:15] LABS: Add Urine Microscopic? NO
[2023-07-04 08:19] LABS: Hemoglobin A1C 6.4 % (<5.7)
[2023-07-04 08:26] LABS: Alanine Aminotransferase 44 U/L (6-50); Albumin Level 4.4 g/dL (3.5-5.1); Alkaline Phosphatase 70 U/L (38-126); Anion Gap 8 mmol/L (8-16); Aspartate Amino Transferase 33 U/L (17-59); Bilirubin,Total 0.8 mg/dL (0.2-1.3); Blood Urea Nitrogen 21 mg/dL (9-20); Calcium 8.9 mg/dL (8.4-10.2); Carbon Dioxide 27 mmol/L (22-30); Chloride 102 mmol/L (98-107); Cholesterol 186 mg/dL (0-200); Creatinine Urine 90.3 mg/dL; Estimated Glomerular Filt Rate > 60; Glucose 147 mg/dL (65-110); HDL Direct 37 mg/dL; Potassium 4.1 mmol/L (3.4-5.0); Sodium 137 mmol/L (137-145); Triglycerides 140 mg/dL (<150)
[2023-07-04 08:32] LABS: MALB Creatinine Ratio < 6.6 mg/g (0-30); Microalbumin Urine Random < 6.0 mg/L (0-16.7)
[2023-07-04 08:37] LABS: LDL Cholesterol Direct 109 mg/dL
== END 2023-07-04 07:09 | disposition home or self-care (01) ==
PROVIDERS: PCP Family Medicine; Visit Provider Physician Assistant
DX: K76.0 Fatty (change of) liver, not elsewhere classified (principal); I10 Essential (primary) hypertension; G89.29 Other chronic pain; G56.03 Carpal tunnel syndrome, bilateral upper limbs; E11.9 Type 2 diabetes mellitus without complications; M54.50 Low back pain, unspecified
CPT/HCPCS: 36415; 80053; 80061; 81003; 82043; 83036; 84443; 85027

== ENCOUNTER 2023-08-05 23:24 | Emergency (ER) | payer MEDICARE, SELFPAY ==
[2023-08-05 23:31] VITALS: TEMP 36.8
[2023-08-05 23:38] VITALS: BP 178/77; PULSE 89; RESP 17; O2SAT 99
[2023-08-05] MEDS: diphenhydrAMINE HCl INJ 50 MG/ML VIAL 25 MG IV PUSH (23:40)
[2023-08-05] MEDS: methylPREDNISolone SOD SUCC 125 MG VIAL IV PUSH (23:42)
[2023-08-05] MEDS: FAMOTIDINE 20 MG/2 ML VIAL IV PUSH (23:42)
--- NOTE | 2023-08-05 23:42 | ED.ALLEREA ---
HPI - Allergic Reaction General Chief complaint: Allergic Reaction <GUIDO Tinoco Last Filed: 08/06/23 02:49> Stated complaint: facial swelling <GUIDO Tinoco Last Filed: 08/06/23 02:49> Time Seen by Provider: 08/05/23 23:42 <GUIDO Tinoco Last Filed: 08/06/23 02:49> Source: patient <GUIDO Tinoco Last Filed: 08/06/23 02:49> Mode of arrival: ambulatory <GUIDO Tinoco Last Filed: 08/06/23 02:49> Limitations: no limitations <GUIDO Tinoco Last Filed: 08/06/23 02:49> History of Present Illness HPI narrative: This is a 67 year old male that presents to the ER for lip swelling. Ongoing over the last hour and a half. Reports he was seated watching television when it started. No new medications or any other exposures he can think of. He had taken Nyquil tonight to help him sleep. Denies difficulty swallowing or trouble breathing. <GUIDO Tinoco Last Filed: 08/06/23 02:49> Related Data Home medications: Home Medications Medication Instructions Recorded Confirmed aspirin 81 mg chewable tablet 81 mg PO DAILY 12/15/20 07/25/23 (Aspirin Childrens) calcium polycarbophil 625 mg 1,250 mg PO DAILY 12/15/20 07/25/23 tablet (Fiber (calcium polycarbophil)) mineral oil (Mineral Oil Heavy 15 ml PO DAILY 12/15/20 07/25/23 oral) <GUIDO Tinoco Last Filed: 08/06/23 02:49> Allergies/adverse reactions: Allergies Allergy/AdvReac Type Severity Reaction Status Date / Time hydromorphone Allergy Unknown BP bottoms Verified 07/25/23 07:26 out Penicillins Allergy Unknown Hives Verified 07/25/23 07:26 <GUIDO Tinoco Last Filed: 08/06/23 02:49> Review of Systems Review of Systems: CONSTITUTIONAL: Denies fever RESPIRATORY: Denies dyspnea. GASTROINTESTINAL: Denies vomiting, or diarrhea. <Angie De Jesus PA-C - Last Filed: 08/06/23 02:49> All systems reviewed & are unremarkable except as noted in HPI and below <Angie De Jesus PA-C - Last Filed: 08/06/23 02:49> [facility] Past Medical History Medical History: Medical History Chronic low back pain Chronic neck pain Complete tear of left rotator cuff Hyperlipidemia Hypertension IFG (impaired fasting glucose) Obesity due to excess calories BRIANNA (obstructive sleep apnea) <Angie De Jesus PA-C - Last Filed: 08/06/23 02:49> Surgical History Surgical History: Surgical History History of bowel resection (~06/18/12) History of hernia repair (~12/10/14) <Angie De Jesus PA-C - Last Filed: 08/06/23 02:49> Family History Family History: Family History Unknown Cancer Heart attack Hypertension Arthritis Father Malignant neoplasm of prostate Mother Cancer of unknown origin <Angie De Jesus PA-C - Last Filed: 08/06/23 02:49> Social History Social History: Social History Social History: Smoking status: Never smoker Second hand tobacco smoke exposure: No Alcohol intake: current Drinks per week: 1 Alcohol use details: beer Substance use: never Substance use type: does not use Living arrangements: with family Occupation/Education: occupation Gender identity (if verbalized by the patient): Male Sexual Orientation (if Verbalized by the Patient): Straight or Heterosexual Spiritual care concerns: No <GUIDO Tinoco Last Filed: 08/06/23 02:49> Exam Narrative: GENERAL: Well-appearing, well-nourished, and in no acute distress. HEAD: Normocephalic, atraumatic. EYES: EOMI. ENT: Mucous membranes moist. Oropharynx without tonsillar hypertrophy exudate or other lesions. Swelling noted of the left side of the upper lip. No swelling of the tongue or
[2023-08-06 02:59] VITALS: BP 145/74; PULSE 85; RESP 15; O2SAT 95
== END 2023-08-06 03:01 | disposition home or self-care (01) ==
PROVIDERS: Emergency Provider Physician Assistant; PCP Family Medicine
DX: T78.3XXA Angioneurotic edema, initial encounter (principal); E78.5 Hyperlipidemia, unspecified; E66.09 Other obesity due to excess calories; Z68.42 Body mass index [BMI] 45.0-49.9, adult; G47.33 Obstructive sleep apnea (adult) (pediatric); Z79.82 Long term (current) use of aspirin; Z90.49 Acquired absence of other specified parts of digestive tract
CPT/HCPCS: 96374; 96375; 99284; J1200; J2930

== ENCOUNTER 2023-08-07 13:28 | Outpatient (CLI) | payer MEDICARE, SELFPAY ==
[2023-08-07 14:29] LABS: Prostate Specific Antigen 0.8 ng/mL (< OR = 4.0)
== END 2023-08-07 13:29 | disposition home or self-care (01) ==
PROVIDERS: PCP Family Medicine; Visit Provider Physician Assistant
DX: Z12.5 Encounter for screening for malignant neoplasm of prostate (principal); R39.15 Urgency of urination
CPT/HCPCS: 36415; 84153; G0103

== ENCOUNTER 2023-08-12 08:19 | Emergency (ER) | payer MEDICARE, SELFPAY ==
[2023-08-12] VITALS (17 sets, daily range): BP systolic 148–249; BP diastolic 78–113; PULSE 62–105; RESP 15–22; TEMP 36.6; O2SAT 94–99
--- NOTE | ~2023-08-12 | CT_ITS ---
EXAMINATION: CT soft tissue neck w con DATE: 08/12/2023 09:43 INDICATION: Tongue swelling. Sore throat. TECHNIQUE: Computed tomography (CT) of the neck was performed with 75 mL Omnipaque-350 intravenous co ntrast. Automated exposure control and iterative reconstruction technique were employed. The dose-sonu gth product was 596.76 mGy-cm. COMPARISON: None FINDINGS: The pharynx and larynx are unremarkable. There are no pathologically enlarged lymph nodes. There is plaque in the proximal internal carotid arteries with less than 50% stenosis relative to nor mal distal artery lumen diameters. There is moderate cervical spondylosis. IMPRESSION: 1. No etiology for the patient's symptoms. Reviewed, dictated and finalized at location A.
--- NOTE | 2023-08-12 08:56 | ED.GENADULT ---
HPI - General Adult General Chief complaint: Unspecified Stated complaint: tongue swelling Time Seen by Provider: 08/12/23 08:32 History of Present Illness HPI narrative: Patient is a 67-year-old male presenting with swollen tongue. Patient states that he was seen here last week for swollen lip. States that he was advised to stop his lisinopril which she has done. States he has not taken it for the last week. He was discharged with prednisone after the swelling did not get worse. States that the lip slowly improved over a 24-hour period. Today he woke up and felt fine. States that he had his morning coffee and then he was driving to work when he felt like the right side of his tongue was swollen. He immediately came in for evaluation. States that it still feels swollen but he does not think that it is gotten any worse. States that it feels a bit difficult to swallow because of pain but does not feel like his throat is swollen. No wheezing or shortness of breath. No drooling. No voice changes. Denies further complaints. Related Data Home Medications Medication Instructions Recorded Confirmed aspirin 81 mg chewable tablet 81 mg PO DAILY 12/15/20 08/20/23 (Aspirin Childrens) calcium polycarbophil 625 mg 1,250 mg PO DAILY 12/15/20 08/20/23 tablet (Fiber (calcium polycarbophil)) mineral oil (Mineral Oil Heavy 15 ml PO DAILY 12/15/20 08/20/23 oral) Allergies Allergy/AdvReac Type Severity Reaction Status Date / Time hydromorphone Allergy Unknown BP bottoms Verified 08/20/23 14:37 out Penicillins Allergy Unknown Hives Verified 08/20/23 14:37 MARJORIE Inhibitors AdvReac Severe angioedema Verified 08/20/23 14:37 Review of Systems Review of Systems: All systems reviewed & are unremarkable except as noted in HPI and below PMFSH Past Medical History Medical History Chronic low back pain Chronic neck pain Complete tear of left rotator cuff Hyperlipidemia Hypertension IFG (impaired fasting glucose) Obesity due to excess calories BRIANNA (obstructive sleep apnea) Surgical History Surgical History History of bowel resection (~06/18/12) History of hernia repair (~12/10/14) Family History Family History Unknown Cancer Heart attack Hypertension Arthritis Father Malignant neoplasm of prostate Mother Cancer of unknown origin Social History Social History Social History: Smoking status: Never smoker Second hand tobacco smoke exposure: No Alcohol intake: current Drinks per week: 1 Alcohol use details: beer Substance use: never Substance use type: does not use Lack of Transportation: No Lack of Food: Never True Current Housing: I Have Housing Concerned About Future Housing: No Difficulty Paying Gas/Electric Bills: No Difficulty Paying for Meds: No Currently Unemployed: No Education: High School Diploma/GED Difficulty w/ Childcare or Family Care: No Living arrangements: with family Occupation/Education: occupation Gender identity (if verbalized by the patient): Male Sexual Orientation (if Verbalized by the Patient): Straight or Heterosexual Spiritual care concerns: No Exam Narrative: GENERAL: Well-appearing, in no acute distress, very pleasant and cooperative HEAD: Normocephalic, atraumatic. EYES: PERRLA and EOMI. ENT: Mucous membranes moist. Right side of tongue is edematous, no posterior pharyngeal edema appreciated, patient is handling his secretions well, floor of mouth is soft and not swollen, no lip involvement NECK: Supple. CHEST: Clear to auscultation. No respiratory distress. No wheezing HEART: Regular rate and rhythm ABDOMEN: Soft, nontender, nondistended EXTREMITIES: Normal range of motion. No edema. SK
[2023-08-12 09:06] LABS: Basophils Percent Auto 0.5 % (0.2-1.2); Eosinophils Absolute Auto 0.1 K/mm3 (0-0.3); Eosinophils Percent Auto 1.6 % (0-4.4); Hematocrit 45.4 % (42.0-52.0); Hemoglobin 15.1 g/dL (14.0-18.0); Immature Granulocyte Absolute 0.03 K/mm3 (0.00-0.031); Immature Granulocyte Percent A 0.4 % (0-0.5); Lymphocytes Absolute Auto 3.86 K/mm3 (0.9-3.2); Lymphocytes Percent Auto 47.2 % (18.3-44.2); Mean Corpuscular HGB Conc 33.3 g/dl (32-36); Mean Corpuscular Hemoglobin 34.5 pg (26-34); Mean Corpuscular Volume 103.7 fl (80-100); Mean Platelet Volume 10.6 fl (7.4-10.4); Monocytes Absolute Auto 0.7 K/mm3 (0.1-0.6); Monocytes Percent Auto 8.1 % (2.6-8.5); Neutrophils Absolute Auto 3.5 K/mm3 (1.3-6.7); Neutrophils Percent Auto 42.2 % (45.5-73.1); Platelet Count Result 189 k/mm3 (150-375); Red Blood Count 4.38 M/mm3 (4.6-6.20); Red Cell Distribution Width 12.9 % (11.5-14.5); White Blood Count 8.2 K/mm3 (4.5-10.0)
[2023-08-12] MEDS: SODIUM CHLORIDE 0.9% IV 1,000 ML 999 ML IV CONT (09:07)
[2023-08-12] MEDS: diphenhydrAMINE HCl INJ 50 MG/ML VIAL IV PUSH (09:07)
[2023-08-12] MEDS: methylPREDNISolone SOD SUCC 125 MG VIAL IV PUSH (09:08)
[2023-08-12] MEDS: FAMOTIDINE 20 MG/2 ML VIAL IV PUSH (09:08)
[2023-08-12 09:15] LABS: Anion Gap 10 mmol/L (8-16); Blood Urea Nitrogen 23 mg/dL (9-20); Calcium 9.2 mg/dL (8.4-10.2); Carbon Dioxide 26 mmol/L (22-30); Chloride 103 mmol/L (98-107); Estimated CRCL calculation 94 ml/min; Estimated Glomerular Filt Rate > 60; Glucose 167 mg/dL (65-110); Sodium 139 mmol/L (137-145)
== END 2023-08-12 13:35 | disposition home or self-care (01) ==
PROVIDERS: Emergency Provider Emergency Medicine; PCP Family Medicine
DX: T78.3XXA Angioneurotic edema, initial encounter (principal); M54.50 Low back pain, unspecified; G89.29 Other chronic pain; I10 Essential (primary) hypertension; E78.5 Hyperlipidemia, unspecified; G47.30 Sleep apnea, unspecified
CPT/HCPCS: 36415; 70491; 80048; 85025; 96361; 96374; 96375; 99284; J1200; J2930; J7030; Q9967

== ENCOUNTER 2023-10-18 08:17 | Outpatient (CLI) | payer MEDICARE, SELFPAY ==
--- NOTE | ~2023-10-18 | MR_ITS ---
MRI of the lumbar spine Clinical History: Back pain Technique: Axial T2-weighted images, and sagittal T1-weighted, T2-weighted, and T2 fat-sat images wer e acquired. COMPARISON: 08/04/2021 Findings: No acute fracture identified. There is 3 mm retrolisthesis of L3 over L4. There is 4 mm ret rolisthesis of L4 over L5. There is 4 mm anterolisthesis of L5 over S1. Probable minimal chronic wedg ing deformity of L2, unchanged. No suspicious bone marrow signal abnormality seen. At L1-L2, there is mild disc bulge, similar to the left foraminal region, with moderate facet arthrop athy. No central canal stenosis or neural foraminal narrowing. At L2-L3, there is advanced degenerative disc 9. There is diffuse disc bulge with mild central disc p rotrusion, as well as advanced facet arthropathy. No sander central canal stenosis or neural foraminal narrowing. At L3-L4, there is severe degenerative disc narrowing. Disc bulge and advanced facet arthropathy resu lt in moderate central canal stenosis/thecal sac compression. There is advanced bilateral neural fora raine compromise, right worse than left. At L4-L5, there is advanced degenerative disc narrowing. Disc bulge and severe facet arthropathy resu lt in minimal central canal stenosis. There is severe bilateral neural foraminal compromise. At L5-S1, disc bulge and severe facet arthropathy are present. No sander central canal stenosis. There is severe bilateral neural foraminal narrowing. Paravertebral soft tissues are unremarkable. Impression: Severe degenerative spondylosis, with multilevel severe neural foraminal narrowing, and moderate mult ifactorial central canal stenosis at L3-L4. 3 mm retrolisthesis of L3 over L4. 4 mm retrolisthesis of L4 over L5. 4 mm anterolisthesis of L5 over S1. Reviewed, dictated and finalized at location . AZZO FINISHER Impression: Severe degenerative spondylosis, with multilevel severe neural foraminal narrow ing, and moderate multifactorial central canal stenosis at L3-L4. 3 mm retrolisthesis of L3 over L4. 4 mm retrolisthesis of L4 over L5. 4 mm anterolisthesis of L5 over S1.
== END 2023-10-18 08:18 | disposition home or self-care (01) ==
PROVIDERS: PCP Family Medicine; Visit Provider Anesthesiology Pain Medicine
DX: M54.51 Vertebrogenic low back pain (principal); M48.062 Spinal stenosis, lumbar region with neurogenic claudication; M43.06 Spondylolysis, lumbar region; M47.817 Spondylosis without myelopathy or radiculopathy, lumbosacral region; G89.29 Other chronic pain
CPT/HCPCS: 72148

== ENCOUNTER 2023-10-20 10:16 | Outpatient (CLI) | payer MEDICARE, SELFPAY ==
[2023-10-20 11:36] LABS: Alanine Aminotransferase 44 U/L (6-50); Albumin Level 4.6 g/dL (3.5-5.1); Alkaline Phosphatase 88 U/L (38-126); Anion Gap 10 mmol/L (8-16); Aspartate Amino Transferase 29 U/L (17-59); Bilirubin,Total 0.9 mg/dL (0.2-1.3); Blood Urea Nitrogen 18 mg/dL (9-20); Calcium 9.3 mg/dL (8.4-10.2); Carbon Dioxide 27 mmol/L (22-30); Chloride 102 mmol/L (98-107); Estimated Glomerular Filt Rate > 60; Glucose 164 mg/dL (65-110); Potassium 4.4 mmol/L (3.4-5.0); Sodium 139 mmol/L (137-145)
[2023-10-20 11:43] LABS: Appearance Urine Cloudy (Clear); Bacteria Urine 2+ /hpf; Bilirubin Urine Negative (Negative); Blood Urine 1+ (Negative); Color Urine Yellow (Yellow); Glucose Urine UA Negative (Negative); Ketones Urine Negative (Negative); Leukocyte Esterase Ur 3+ LEU/UL (NEGATIVE); Need Manual Microscopic Reviewed; Nitrate Urine Positive (Negative); Protein Urine Negative (Negative); Specific Grav Ur 1.014 (1.001-1.035); Squamous Epithelial Cell Urine None seen /hpf (Few); Urobilinogen Urine 0.2 mg/dL (<2.0); WBC Urine >100 /hpf (0-3); pH Urine 5.5 (5.0-9.0)
[2023-10-20 11:45] LABS: Add Urine Microscopic? YES
[2023-10-20 12:58] LABS: Hemoglobin A1C 7.4 % (<5.7)
== END 2023-10-20 10:17 | disposition home or self-care (01) ==
PROVIDERS: Physician Assistant; Physician Assistant Medical; PCP Family Medicine; Visit Provider Family Medicine
DX: R35.0 Frequency of micturition (principal); E11.9 Type 2 diabetes mellitus without complications; I10 Essential (primary) hypertension
CPT/HCPCS: 36415; 80053; 81001; 83036; 87077; 87086; 87186

== ENCOUNTER 2023-10-23 07:02 | Emergency (ER) | payer MEDICARE, SELFPAY ==
--- NOTE | ~2023-10-23 | CT_ITS ---
CT scan of the Neck Technique: 2.5 mm axial scans were obtained through the neck after intravenous administration of 75 c c Omnipaque 350. Coronal and sagittal reconstructions of the neck were obtained. Dose reduction techn ique was used on this scan by utilizing automated exposure control and iterative reconstruction techn ique. The dose-length product (DLP) was 654.50 mGy-cm. Clinical History: Neck swelling, parotitis COMPARISON: 08/12/2023 Findings: There is no evidence of any significant cervical lymphadenopathy. Several small, nonenlarged jugulo- digastric and posterior cervical lymph nodes are noted bilaterally. Parapharyngeal spaces appear norm al bilaterally. The parotid and submandibular glands appear normal. The pharyngeal mucosal spaces appear normal. No soft tissue masses are seen in the neck. The thyroid gland appears normal. Images of the lung apices reveal no abnormalities. Impression: No significant abnormalities noted. Reviewed, dictated and finalized at [facility]. DENTIAL CHILD CARE COUNSELOR Impression: No significant abnormalities noted.
[2023-10-23 07:05] VITALS: BP 199/78; PULSE 121; RESP 20; TEMP 37; O2SAT 98
--- NOTE | 2023-10-23 07:37 | ED.GENADULT ---
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 He has a history of angioedema secondary to lisinopril use which has been discontinued. He could feel it at 6:30 when he woke up and feels like it is progressing. He had a fever on Friday which he attributed to a UTI. For this, he has been taking cipro. He is managing his secretions and has no dysphagia, odynophagia, or dysphonia. Related Data Home Medications Medication Instructions Recorded Confirmed mineral oil (Mineral Oil Heavy 15 ml PO DAILY 12/15/20 10/07/23 oral) Allergies Allergy/AdvReac Type Severity Reaction Status Date / Time hydromorphone Allergy Unknown BP bottoms Verified 10/23/23 07:17 out Penicillins Allergy Unknown Hives Verified 10/23/23 07:17 MARJORIE Inhibitors AdvReac Severe angioedema Verified 10/23/23 07:17 [facility] Past Medical History Medical History (Updated 11/03/23 @ 23:52 by Radha Chang MD) Angioedema Chronic low back pain Chronic neck pain Complete tear of left rotator cuff Hyperlipidemia Hypertension IFG (impaired fasting glucose) Obesity due to excess calories BRIANNA (obstructive sleep apnea) UTI (urinary tract infection) Oct 2023 Surgical History Surgical History History of bowel resection (~06/18/12) History of hernia repair (~12/10/14) Family History Family History Unknown Cancer Heart attack Hypertension Arthritis Father Malignant neoplasm of prostate Mother Cancer of unknown origin Social History Social History Social History: Smoking status: Never smoker Second hand tobacco smoke exposure: No Alcohol intake: current Drinks per week: 1 Alcohol use details: beer Substance use: never Substance use type: does not use Lack of Transportation: No Lack of Food: Never True Current Housing: I Have Housing Concerned About Future Housing: No Difficulty Paying Gas/Electric Bills: No Difficulty Paying for Meds: No Currently Unemployed: No Education: High School Diploma/GED Difficulty w/ Childcare or Family Care: No Living arrangements: with family Occupation/Education: occupation Gender identity (if verbalized by the patient): Male Sexual Orientation (if Verbalized by the Patient): Straight or Heterosexual Spiritual care concerns: No Exam Narrative: GENERAL: Well-appearing, well-nourished, and in no acute distress. HEAD: Normocephalic, atraumatic. EYES: Non injected, non icteric ENT: Nares clear, no rhinorrhea or epistaxis. Uvula midline. Mild swelling throughout face though patient has very full face and neck with redudant pendulous tissue about the mandible and throughout neck. Mild posterior oropharynx swelling but patent airway. No sander induration or area of consolidation througout face, buccal mucosa, etc. Normal tongue. Submandibular space normal. NECK: Supple. Trachea midline. CHEST: Speaking in full sentences. No respiratory distress. No accessory muscle usage HEART: Tachycardic rate and rhythm. . ABDOMEN: Protuberant/obese; Soft, nondistended. EXTREMITIES: Normal range of motion. No edema. SKIN: Warm, dry, no rash. NEURO: No focal deficits. Alert and oriented x3. Engages muscles of face x3. Sensation intact throughout distribution of face. PSYCH: Normal mood and affect. Course Vital Signs Vital signs: Vital Signs Temperature 98.6 F 10/23/23 07:05 Pulse Rate 121 H 10/23/23 07:05 Respiratory Rate 20 10/23/23 07:05 Blood Pressure 199/78 H 10/23/23 07:05 Pulse Oximetry 98 10/23/23 07:
[2023-10-23 07:57] LABS: Basophils Percent Auto 0.4 % (0.2-1.2); Eosinophils Absolute Auto 0.1 K/mm3 (0-0.3); Eosinophils Percent Auto 1.4 % (0-4.4); Hematocrit 43.3 % (42.0-52.0); Hemoglobin 14.5 g/dL (14.0-18.0); Immature Granulocyte Absolute 0.03 K/mm3 (0.00-0.031); Immature Granulocyte Percent A 0.4 % (0-0.5); Lymphocytes Absolute Auto 1.48 K/mm3 (0.9-3.2); Lymphocytes Percent Auto 20.1 % (18.3-44.2); Mean Corpuscular HGB Conc 33.5 g/dl (32-36); Mean Corpuscular Hemoglobin 33.8 pg (26-34); Mean Corpuscular Volume 100.9 fl (80-100); Monocytes Absolute Auto 0.7 K/mm3 (0.1-0.6); Monocytes Percent Auto 9.9 % (2.6-8.5); Neutrophils Percent Auto 67.8 % (45.5-73.1); Platelet Count Result 166 k/mm3 (150-375); Red Blood Count 4.29 M/mm3 (4.6-6.20); Red Cell Distribution Width 12.7 % (11.5-14.5); White Blood Count 7.4 K/mm3 (4.5-10.0)
[2023-10-23 08:07] LABS: Anion Gap 11 mmol/L (8-16); Blood Urea Nitrogen 23 mg/dL (9-20); Calcium 9.1 mg/dL (8.4-10.2); Carbon Dioxide 23 mmol/L (22-30); Chloride 105 mmol/L (98-107); Estimated CRCL calculation 77 ml/min; Estimated Glomerular Filt Rate > 60; Glucose 185 mg/dL (65-110); Potassium 3.9 mmol/L (3.4-5.0); Sodium 139 mmol/L (137-145)
[2023-10-23] MEDS: SODIUM CHLORIDE 0.9% IV 1,000 ML 999 ML IV CONT (08:26)
[2023-10-23] MEDS: diphenhydrAMINE HCl CAP 25 MG CAPSULE PO (09:30)
[2023-10-23 09:43] VITALS: BP 144/83; PULSE 73; RESP 18; O2SAT 96
== END 2023-10-23 09:44 | disposition home or self-care (01) ==
PROVIDERS: Emergency Provider Student in an Organized Health Care Education/Training Program; PCP Family Medicine
DX: R22.0 Localized swelling, mass and lump, head (principal); R73.9 Hyperglycemia, unspecified; R79.89 Other specified abnormal findings of blood chemistry
CPT/HCPCS: 36415; 70491; 80048; 85025; 96360; 99284; A9270; J7030; Q9967

== ENCOUNTER 2023-12-04 09:00 | Outpatient (RCR) | payer MEDICARE, SELFPAY ==
--- NOTE | 2023-10-29 09:16 | PTOPEVAL1 ---
Assessment and note entered by John Pelletier Evaluation Information Assessment Status Evaluation Diagnosis vertebrogenic low back pain Onset 07/30/23 Subjective Information Pt. reports that he has had on/off back pain for years. He describes pain going across the low back. He has had injections in the past with temporary relief noted. He states that pain will shoot into the sides of the legs on occasion. He reports that pain is increased with bending, standing over 30 minutes and walking any significant distance. He reports that he does not ahve a lot of difficulty with sleeping at night. 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 He reports that he has had MRI and xray and is going to have an ablasion in the next few weeks. He reports that his goal is to reduce his low back pain. Reported Pain Level Pain Score 5: Self Report Assessment PT Clinical Summary Pt. is a 68 year old male who enters the clinic with chronic low back pain. he presents with impaired l.e. and abdominal strength, impaired postural awareness, pain, impaired gait, and functional decline. Conitnued skilled PT is indicated in order to improve these areas to allow for improved comfort with IADL performance. Plan of Care Interventions Electrical Stimulation,Hot Pack/Cold Pack,Manual Therapy,Mechanical Traction,Neuro Re-education, Therapeutic Activities,Therapeutic Exercise PT Services Indicated Yes Treatment Frequency and 2x/week x 10 visits Duration These treatments will address the objective and functional deficits as defined above. The patient will be advanced safely and appropriately in order for the patient to progress towards his/her prior level of function. Additional exercises will be introduced and as well as a comprehensive home exercise program upon discharge, if needed, ?to ensure carryover of functional gains achieved in the clinic. This treatment plan has been reviewed and agreement upon by the patient.
--- NOTE | 2023-10-29 09:16 | PTOPEVAL1 ---
Assessment and note entered by John Pelletier Evaluation Information Assessment Status Evaluation Diagnosis vertebrogenic low back pain Onset 07/30/23 Subjective Information Pt. reports that he has had on/off back pain for years. He describes pain going across the low back. He has had injections in the past with temporary relief noted. He states that pain will shoot into the sides of the legs on occasion. He reports that pain is increased with bending, standing over 30 minutes and walking any significant distance. He reports that he does not ahve a lot of difficulty with sleeping at night. 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 He reports that he has had MRI and xray and is going to have an ablasion in the next few weeks. He reports that his goal is to reduce his low back pain. Reported Pain Level Pain Score 5: Self Report Assessment PT Clinical Summary Pt. is a 68 year old male who enters the clinic with chronic low back pain. he presents with impaired l.e. and abdominal strength, impaired postural awareness, pain, impaired gait, and functional decline. Conitnued skilled PT is indicated in order to improve these areas to allow for improved comfort with IADL performance. Plan of Care Interventions Electrical Stimulation,Hot Pack/Cold Pack,Manual Therapy,Mechanical Traction,Neuro Re-education, Therapeutic Activities,Therapeutic Exercise PT Services Indicated Yes Treatment Frequency and 2x/week x 10 visits Duration These treatments will address the objective and functional deficits as defined above. The patient will be advanced safely and appropriately in order for the patient to progress towards his/her prior level of function. Additional exercises will be introduced and as well as a comprehensive home exercise program upon discharge, if needed, ?to ensure carryover of functional gains achieved in the clinic. This treatment plan has been reviewed and agreement upon by the patient.
--- NOTE | 2023-10-29 09:18 | OPREHPOC ---
Outpatient Therapy Plan of Care This is a Multidisciplinary Plan of Care that may contain components documented by all disciplines (PT, OT, and ST.) PT Problem 1 PT Problem #1 Knowledge Deficit PT Goal 1 Goal Independent with a HEP addressing trunk mobility and core strength. Target Visit 2 PT Problem 2 PT Problem #2 Pain PT Goal 1 Goal Pt. will report reduction in pain levels to 4/10 with prolonged standing activities. Target Visit 10 PT Problem 3 PT Problem #3 Impaired Gait PT Goal 1 Goal Pt. will ambulate a distance of 1000' in 6 minutes indicating adequate anita Target Visit 8 PT Goal 2 Goal Pt. will report being able to stand/walk for duration of 1 hour with 4/10 pain at worst. Target Visit 10
--- NOTE | 2023-12-04 10:03 | PTOPPROGNS ---
Assessment and note entered by John Pelletier Discharge Information Assessment Status Discharge Diagnosis vertebrogenic low back pain Onset 07/30/23 Subjective Information Pt. reports that he will be undergoing a back procedure next week. He states that he still gets increased pain with standing one position. He reports that he can currently only walk for a duration of 10 minutes before having to rest. Assessment PT Clinical Summary Pt. has met majority of goals established at the initial evaluation. Weakness remains at the right l.e. and pt. continues to provide consistent pain reports. Educated pt. thoroughly regarding exercise and benefits of continuing core stability activities. At this time pt. will be undergoing surgery next week and will be discharged from our care. Plan of Care PT Services Indicated Treatment Frequency and D/C from PT to an independent HEP. Duration These treatments will address the objective and functional deficits as defined above. The patient will be advanced safely and appropriately in order for the patient to progress towards his/her prior level of function. Additional exercises will be introduced and as well as a comprehensive home exercise program upon discharge, if needed, ?to ensure carryover of functional gains achieved in the clinic. This treatment plan has been reviewed and agreement upon by the patient.
== END 2023-12-04 13:37 | disposition home or self-care (01) ==
LOC: ANHPT 09:00
PROVIDERS: PCP Family Medicine; Visit Provider Anesthesiology Pain Medicine
DX: M54.51 Vertebrogenic low back pain (principal); M48.062 Spinal stenosis, lumbar region with neurogenic claudication; M47.817 Spondylosis without myelopathy or radiculopathy, lumbosacral region; M54.9 Dorsalgia, unspecified; G89.29 Other chronic pain
CPT/HCPCS: 97014; 97110; 97161; 97530; G0283

== ENCOUNTER 2023-12-04 11:20 | Outpatient (CLI) | payer MEDICARE, SELFPAY ==
--- NOTE | ~2023-12-04 | XR_ITS ---
XR chest 2V DATE: 12/04/2023 10:29 INDICATION: Essential hypertension. TECHNIQUE: PA and lateral views COMPARISON: 05/17/2021 CT chest high resolution scan 06/09/2012 two-view chest FINDINGS: Normal heart size. Mild aortic calcification and unfolding. No hilar or mediastinal enlarge ment. No pulmonary infiltrate or consolidation, pleural effusion or pulmonary vascular congestion or pneumo thorax. Diffuse idiopathic skeletal hyperostosis of the thoracic spine. IMPRESSION: No active cardiopulmonary disease Reviewed, dictated and finalized at location [address]. [address] PRODUCTION MANAGER
--- NOTE | 2023-12-04 10:38 | ECG_ITS ---
Measurements Intervals [place] Rate: 74 P: 52 NM: 155 QRS: 17 QRSD: 102 T: 29 QT: 372 QTc: 413 Interpretive Statements SINUS RHYTHM WITH OCCASIONAL SUPRAVENTRICULAR PREMATURE COMPLEXES IN A BIGEMINAL PATTERN ABNORMAL RHYTHM ECG NO PREVIOUS ECG AVAILABLE FOR COMPARISON Electronically Signed On 12-04-2023 14:04:51 SENIOR RESEARCH PROJECT MANAGER by Margoth Maldonado M.D.
[2023-12-04 11:40] LABS: Basophils Percent Auto 0.6 % (0.2-1.2); Eosinophils Absolute Auto 0.1 K/mm3 (0-0.3); Eosinophils Percent Auto 1.2 % (0-4.4); Hematocrit 42.1 % (42.0-52.0); Hemoglobin 14.3 g/dL (14.0-18.0); Immature Granulocyte Absolute 0.01 K/mm3 (0.00-0.031); Immature Granulocyte Percent A 0.2 % (0-0.5); Lymphocytes Absolute Auto 1.45 K/mm3 (0.9-3.2); Lymphocytes Percent Auto 29.3 % (18.3-44.2); Mean Corpuscular Hemoglobin 33.6 pg (26-34); Mean Corpuscular Volume 98.8 fl (80-100); Mean Platelet Volume 9.7 fl (7.4-10.4); Monocytes Absolute Auto 0.6 K/mm3 (0.1-0.6); Monocytes Percent Auto 11.1 % (2.6-8.5); Neutrophils Absolute Auto 2.9 K/mm3 (1.3-6.7); Neutrophils Percent Auto 57.6 % (45.5-73.1); Platelet Count Result 171 k/mm3 (150-375); Red Blood Count 4.26 M/mm3 (4.6-6.20); Red Cell Distribution Width 13.1 % (11.5-14.5)
[2023-12-04 11:52] LABS: Alanine Aminotransferase 50 U/L (6-50); Albumin Level 4.4 g/dL (3.5-5.1); Alkaline Phosphatase 80 U/L (38-126); Anion Gap 9 mmol/L (8-16); Aspartate Amino Transferase 34 U/L (17-59); Bilirubin,Total 0.6 mg/dL (0.2-1.3); Blood Urea Nitrogen 21 mg/dL (9-20); Carbon Dioxide 25 mmol/L (22-30); Chloride 104 mmol/L (98-107); Estimated Glomerular Filt Rate > 60; Glucose 145 mg/dL (65-110); Potassium 4.3 mmol/L (3.4-5.0); Sodium 138 mmol/L (137-145)
[2023-12-04 11:54] LABS: Partial Thromboplastin Time 26.2 SECONDS (22.3-36.8); Prothrombin Time 13.8 Seconds (11.1-14.7)
--- NOTE | 2023-12-08 16:42 | WPDHOLTEREM ---
Holter/Event Monitor Holter/Event Monitor Date of procedure: 12/04/23 Holter/Event Procedure: 48 Hr Holter Monitor Indications: Palpitations Conclusion: 1. 48 hour holter monitor on 12/04/23. 2. Predominant rhythm is sinus rhythm. HR range 45-109 bpm; average HR 68 bpm. 3. There are 8,749 premature supraventricular complexes and 144 supraventricular couplets. There are 6 episodes of atrial tachycardia, fastest at 179 bpm and longest lasting 5 beats. 4. There are 10 premature ventricular complexes. No ventricular tachycardia. 5. No sinoatrial or atrioventricular blocks. No significant pauses greater than 2 seconds. 6. No symptoms available for correlation.
== END 2023-12-04 11:21 | disposition home or self-care (01) ==
PROVIDERS: PCP Family Medicine; Referring Provider Anesthesiology Pain Medicine; Visit Provider Physician Assistant
DX: R93.1 Abnormal findings on diagnostic imaging of heart and coronary circulation (principal); I49.1 Atrial premature depolarization; R94.31 Abnormal electrocardiogram [ECG] [EKG]; G47.33 Obstructive sleep apnea (adult) (pediatric); I10 Essential (primary) hypertension; M48.062 Spinal stenosis, lumbar region with neurogenic claudication; E11.9 Type 2 diabetes mellitus without complications; K76.0 Fatty (change of) liver, not elsewhere classified
CPT/HCPCS: 36415; 71046; 80053; 85025; 85610; 85730; 93005; 93225; 93226

== ENCOUNTER 2023-12-11 08:35 | Outpatient (CLI) | payer MEDICARE, SELFPAY | END 2023-12-11 08:36 | disposition home or self-care (01) | PROVIDERS: PCP Family Medicine; Visit Provider Physician Assistant | DX: H90.3 Sensorineural hearing loss, bilateral (principal); H93.13 Tinnitus, bilateral | CPT/HCPCS: 92557; 92567 ==

== ENCOUNTER 2024-02-04 08:34 | Outpatient (CLI) | payer MEDICARE, SELFPAY ==
--- NOTE | 2024-02-04 08:51 | ECHO_ITS ---
Patient Info Name: Neymar De La Garza Age: 68 years : 1955 Gender: Male Ht: 67 in Wt: 298 lbs BSA: 2.60 m2 HR: 78 bpm BP: 183 / 104 mmHg Heart Rhythm: Sinus Rhythm Technical Quality: Good Exam Date: 02/04/2024 9:06 AM Exam Location: Echo Lab Patient Status: Outpatient Admit Date: 02/04/2024 Staff Ordering Physician: Dejon Fowler DO Slot Operations Manager: Juan Escobar RDCS Attending Provider: Dejon Fowler DO Referring Physician: Malcolm KINCAID; Exam Type: CA echo dop color flow w con Study Info Indications - supraventricular tachycardia Complete two-dimensional, color flow and Doppler transthoracic echocardiogram is performed with contrast to opacify the left ventricle and to improve the deliniation of the left ventricle endocardial borders. Contrast/Agitated Saline Contrast/Ag. Saline: Definity Amount: 3.00 ml Summary 1. Definity contrast administered improved wall motion interpretation. 2. Left ventricular chamber dimension is normal. 3. Left ventricular systolic function is normal, estimated at 60-65%. 4. The left ventricular diastolic function is grade I diastolic dysfunction. 5. E/e' 10 is mildly elevated. 6. Left atrial chamber dimension is moderately enlarged. 7. There is mild aortic valve sclerosis. 8. No pulmonary hypertension, estimated pulmonary arterial systolic pressure is 16 mmHg. Left Ventricle E/e' 10 is mildly elevated. Definity contrast administered improved wall motion interpretation. Left ventricular chamber dimension is normal. Left ventricular systolic function is normal, estimated at 60-65%. The left ventricular diastolic function is grade I diastolic dysfunction. Right Ventricle Right ventricular systolic function is normal and with normal TAPSE 2.9 cm. Right ventricular chamber dimension is normal. Left Atria Left atrial chamber dimension is moderately enlarged. Right Atria Right atrial chamber dimension is normal. Aortic Valve The aortic valve is trileaflet. There is mild aortic valve sclerosis. There is no aortic valve stenosis. There is no aortic valve regurgitation. Pulmonic Valve There is no pulmonic regurgitation. Mitral Valve There is no mitral valve stenosis. There is no mitral valve regurgitation. Tricuspid Valve There is no tricuspid valve regurgitation. No pulmonary hypertension, estimated pulmonary arterial systolic pressure is 16 mmHg. Pericardium/Pleural There is no pericardial effusion. Inferior Vena Cava Normal inferior vena cava with >50% collapse upon inspiration consistent with normal right atrial pressure, 5 mmHg. Aorta The aortic root size at the sinus of Valsalva is normal. Left Ventricular Outflow Tract Name Value Normal LVOT 2D LVOT Diameter 2.21 cm LVOT Doppler LVOT Peak Gradient 6 mmHg LVOT Mean Gradient 3 mmHg LVOT VTI 27.64 cm LVOT VTI/AV VTI Ratio 0.87 LVOT Stroke Volume 105.63 ml LVOT CO 7.12 l/min LVOT CI 2.73 L/min/m2 Pulmonic Valve
[2024-02-04] MEDS: PERFLUTREN LIPID MICROSPHERES 1.5 ML VIAL DILUTED TO 10 ML TOTAL VOLUME IV PUSH (09:25)
--- NOTE | 2024-02-04 09:56 | IVDEFINITY ---
Prior to administration of IV Definity the patient was educated on the risks and benefits of the imaging enhancing agent including potential adverse side effects. The patient verbalized understanding. Allergies were verified. No exclusion criteria were identified and at least one of the following inclusion criteria were met: 1) physician request, 2) patient technically difficult to image (per the [place] [employer] Echocardi[employer] guidelines of two or more segments not discernable within the apical view), or 3) questionable left ventricular function. ?
== END 2024-02-04 08:35 | disposition home or self-care (01) ==
PROVIDERS: PCP Family Medicine; Visit Provider Internal Medicine Cardiovascular Disease
DX: I47.19 Other supraventricular tachycardia (principal); I35.8 Other nonrheumatic aortic valve disorders
CPT/HCPCS: C8929; Q9957

== ENCOUNTER 2024-02-19 10:27 | Outpatient (CLI) | payer MEDICARE, SELFPAY | END 2024-02-19 10:28 | disposition home or self-care (01) | PROVIDERS: PCP Family Medicine; Visit Provider Internal Medicine Cardiovascular Disease | DX: I47.19 Other supraventricular tachycardia (principal) | CPT/HCPCS: 36415; 84443 ==

== ENCOUNTER 2024-04-10 08:15 | Outpatient (CLI) | payer MEDICARE, SELFPAY ==
[2024-04-10 09:10] LABS: Alanine Aminotransferase 45 U/L (6-50); Albumin Level 4.5 g/dL (3.5-5.1); Alkaline Phosphatase 75 U/L (38-126); Anion Gap 7 mmol/L (4-12); Aspartate Amino Transferase 30 U/L (17-59); Bilirubin,Total 0.8 mg/dL (0.2-1.3); Blood Urea Nitrogen 22 mg/dL (9-20); Calcium 9.2 mg/dL (8.4-10.2); Carbon Dioxide 25 mmol/L (22-30); Chloride 107 mmol/L (98-107); Estimated Glomerular Filt Rate > 60; Glucose 157 mg/dL (65-110); Potassium 4.1 mmol/L (3.4-5.0); Sodium 139 mmol/L (137-145)
[2024-04-10 09:25] LABS: Hemoglobin A1C 6.8 % (<5.7)
== END 2024-04-10 08:16 | disposition home or self-care (01) ==
LOC: ANHLAB 08:18
PROVIDERS: PCP Family Medicine; Visit Provider Physician Assistant
DX: E11.9 Type 2 diabetes mellitus without complications (principal); I10 Essential (primary) hypertension
CPT/HCPCS: 36415; 80053; 83036

== ENCOUNTER 2024-05-31 00:24 | Day surgery (SDC) | payer MEDICARE, SELFPAY ==
[2024-05-25 14:51] VITALS: BMI 46.3
--- NOTE | 2024-05-25 15:34 | PC.NURSE ---
Report to the Outpatient Waiting Room, entrance under the green pavilion located off [facility], at time __06:00am on date _05/31/24 . Planned Procedure Time: ___07:30am . Time changes happen often and if your time is changed the preop area will call you the afternoon before. - You and your visitor will be asked to self-screen and do not enter if you have any COVID symptoms. - A mask is optional within the hospital at this time. Patients may have clear liquids (water, carbonated beverages, clear teas, apple juice) until 3 hours prior to surgery with a maximum of 20 ounces. - No food from midnight until time of surgery- Take the following medications with a SIP of water the morning of surgery: ____Amlodipine and Metoprolol per Dr Miguel DO NOT STOP ANY OF YOUR OTHER PRESCRIPTION MEDICATIONS PRIOR TO SURGERY ?EXCEPT THE FOLLOWING Medications to discontinue per physician All NSAIDS/Diclofenac per Dr Jennings- pt to call and confirm w his office today. Date to take last dose___per Dr Jennings Please no make-up, nail sinhala, hairspray, perfume, deodorant, or body powder the day of surgery. No jewelry (including any body piercings) or valuables the day of surgery, leave them at home. Please take a shower or bath the night before, or the morning of, surgery with an antibacterial soap. Wear comfortable, loose fitting clothing. - Jewelry must be removed prior to entering the operating room. Rings and piercings that are not removed may be cut off. - The hospital will not accept responsibility for valuables. - Please leave all valuables, including medications, at home the day of surgery. If you are going home after surgery, a licensed yard driver must drive you home. - NO public transportation without another adult if you receive anesthesia. - We recommend that an adult stay with you for 24 hours following discharge. - We also recommend that you do not drive, make important decision, drink alcoholic beverages, or take any drugs that were not prescribed by your health care provider for at least 24 hours after your discharge time. Follow any additional instructions given to you from your surgeon. If you or anyone in your household have experienced Covid symptoms in the past week, please notify your surgeon or the nurse liaison at the phone number below for possible testing. Telephone instructions given to ____patient & on phone and asked if any additional questions and then verbalized understanding. Patient advised to call surgeon office or pre surgery nurse liaison [phone] if any additional questions.
[2024-05-31] VITALS (8 sets, daily range): BP systolic 127–179; BP diastolic 61–87; PULSE 68–84; RESP 16–18; TEMP 36.2–36.8; O2SAT 92–98
--- NOTE | ~2024-05-31 | XR_ITS ---
EXAMINATION: XR fluoroscopy no charge DATE: 05/31/2024 08:50 INDICATION: Lumbar decompression TECHNIQUE: 17 fluoroscopic images of the lumbar spine were obtained during procedure performed by Dr. Jennings. Radiologist was not present for the imaging or procedure. The amount of fluoroscopy time used during this procedure was 6.7 minutes. COMPARISON: None. FINDINGS/IMPRESSION: Images demonstrate surgical instrumentation including rongeur likely for posterior decompression proj ecting over the interlaminar spaces bilaterally at L3-L4 and L4-L5. See procedure note for further de tail. Reviewed, dictated and finalized at location A.
--- NOTE | 2024-05-31 05:33 | PM.HPGS ---
History of Present Illness History of Present Illness Consent: Risks, benefits, and alternatives have been discussed and questions answered. Patient agrees to proceed with procedure. 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 Review of Systems Review of Systems: Patient denies any new infectious, allergic, cardiopulmonary, neurologic or constitutional symptoms or changes in activity tolerance or exercise capacity including new or progressive SOB/KHANNA, peripheral edema, productive cough, dysuria, nausea/vomiting, diarrhea, weight change, fevers/chills/night sweats, new or progressive neurologic deficit, cognitive or mood changes since last seen, except as documented in the HPI. All systems reviewed & are unremarkable except as noted in HPI and below PMFSH Past Medical History Medical History Angioedema Chronic low back pain Chronic neck pain Complete tear of left rotator cuff Hyperlipidemia Hypertension IFG (impaired fasting glucose) Obesity due to excess calories BRIANNA (obstructive sleep apnea) UTI (urinary tract infection) Oct 2023 Surgical History Surgical History History of bowel resection (~06/18/12) History of hernia repair (~12/10/14) Family History Family History Unknown Cancer Heart attack Hypertension Arthritis Father Malignant neoplasm of prostate Mother Cancer of unknown origin Social History Social History Social History: Smoking status: Never smoker Second hand tobacco smoke exposure: No Alcohol intake: current Drinks per week: 1 Alcohol use details: beer Substance use: never Substance use type: does not use Do You Feel Safe in your Home?: Yes Lack of Transportation: No Lack of Food: Never True Current Housing: I Have Housing Concerned About Future Housing: No Difficulty Paying Gas/Electric Bills: No Difficulty Paying for Meds: No Currently Unemployed: No Education: High School Diploma/GED Difficulty w/ Childcare or Family Care: No Living arrangements: with family Additional living arrangements comments: Occupation/Education: occupation Gender identity (if verbalized by the patient): Male Sexual Orientation (if Verbalized by the Patient): Straight or Heterosexual Spiritual care concerns: No Meds Home Medications and Allergies Home Medications Medication Instructions Recorded Confirmed Type mineral oil (Mineral Oil Heavy 15 ml PO BID 12/15/20 05/25/24 History oral) diclofenac sodium 75 mg 75 mg PO BID #180 tabs 04/21/23 05/25/24 Rx tablet,delayed release epinephrine 0.3 mg/0.3 mL 0.3 mg (0.3 mL) IM ONCE #2 ea 08/14/23 05/25/24 Rx injection, auto-injector (EpiPen 2-Mendez) tamsulosin 0.4 mg capsule 0.4 mg PO DAILY #90 caps 03/08/24 05/25/24 Rx amlodipine 10 mg tablet 10 mg PO DAILY #90 tabs 04/19/24 05/25/24 Rx atorvastatin 20 mg tablet (Lipitor) 20 mg PO DAILY #90 tabs 04/19/24 05/25/24 Rx metoprolol succinate 100 mg 100 mg PO DAILY #90 tabs 04/20/24 05/25/24 Rx tablet,extended release 24 hr triamterene 37.5 1 tablet PO QAM #90 tabs 04/20/24 05/25/24 R
--- NOTE | 2024-05-31 05:39 | WPDHPUPDATE1 ---
History and Physical Update Update Date/Time: 05/31/24 05:39 History and Physical has been reviewed, including an updated exam of the patient. There are NO changes in the patient's condition. Risks, benefits, and alternatives have been discussed and questions answered. Patient agrees to proceed with procedure.
--- NOTE | 2024-05-31 05:40 | W.PM.PROC2 ---
Procedure Note - Detailed Date of Procedure 05/31/24 Pre-op Diagnosis spinal stenosis lumbar w/neuro claudication Post-op Diagnosis Same Procedure Performed Bilateral Minimally Invasive Lumbar Decompression (MILD) at L3-4, L4-5 under Fluoroscopic Guidance. Surgeon Chintan Jennings MD Anesthesia Other ([Moderate IV sedation/MAC] with local anesthetic infiltration in the prone position) Description of Procedure INFORMED CONSENT: Risks, benefits, and alternatives to the procedure were discussed in detail with the patient who expressed explicit understanding and consent to proceed. Risks discussed with the patient included but were not limited to risk of serious local or systemic infection, bleeding/bruising, epidural hematoma, dural puncture or tear resulting in CSF leak and acute or chronic post-dural puncture headache, scarring/deformity, immediate or delayed allergic reaction, decreased mobility, failure to treat pain, inadvertent neurologic injury resulting in increased pain, weakness/paralysis or numbness, inadvertent organ injury, need for additional surgery, allergic reaction, heart attack, stroke, seizure, coma, . Anesthetic risks were also briefly discussed by myself and the machine umbrella tipper. The patient expressed understanding and consent to proceed, agreeing that potential benefits outweigh risk of harm. All materials required for the procedure were immediately available prior to procedure start. Site and side were confirmed with the patient, compared carefully to the patient chart and consent, and marked prior to transport to the operating room. Appropriate time out procedure was performed per protocol prior to procedure start. PROCEDURE IN DETAIL: The patient was brought to the operative suite and placed in the prone position. Appropriate ASA standard monitors were attached. Anesthesia was initiated without difficulty or event. Eyes were protected. Pressure points were padded with joints in neutral position. When appropriate, breasts and genitals were evaluated and protected. Eyes were checked and were free from undue pressure. Skin overlying the procedure site was marked with sterile marker. Surgical area was prepared in a typical sterile fashion with ChloraPrep and allowed to dry for at least 3 minutes prior to sterilely draping the surgical site. The lumbar spine was identified in the AP fluoroscopic view with slight cephalad tilt perfectly aligning the endplates at the targeted levels with spinous processes bisecting the transpedicular plane. After identifying the intended incision site approximately 1.5 levels inferior to the level of interest, the area was anesthetized by infiltration with no more than 10ml of a 1:1 admixture of 0.5% PF bupivacaine with epinephrine and 2% PF lidocaine with epinepherine via a 27-gauge needle after negative aspiration. A 22-gauge spinal needle was used to provide additional and adequate local anesthesia to the level of the interspinous ligament, ligamentum flavum and the periosteum of the lamina at the intended treatment levels. In the AP view, a #11 scalpel blade was used to create a single stab incision at the intended incision site on the targeted side. The Vertos MILD kit was opened and the included cannula and trocar assembly was advanced through the incision to contact the midportion of the right lamina just adjacent to the spinous process at L5. Once seated, the lateral view was used to gauge depth demonstrating the most anterior tip of the trocar posterior to the epidural space at all times. The business executive-provided cannula stabilizer was placed over the trocar flush to the patient's lumbar flank. Cannula obturator with handle was removed. Included depth guide was then attached to the insertion port on the cannula and set to an intial depth of 15 mm. The bone rongeur was advanced to the depth of the lumbar lamina at the targeted level. Depth gauge was then adjusted allowing rongeur tip to advanc
--- NOTE | 2024-05-31 07:13 | WPDANESEPPF ---
Anes - Initial Pre Proc Eval Procedure: Operation Date: 05/31/24 07:30 Proposed Procedures p Bilateral L3-4, L4-5 Minimally Invasive Lumbar Decompression Under Fluoroscopic Guidance, Possible Epidurogram - Chintan Jennings MD Date/Time: 05/31/24 07:13 Surgeon: Chintan Jennings MD Pre Op Diagnosis: spinal stenosis lumbar w/neuro claudication Patient Data Age: 68 Gender: M Height: 1.7 m Weight: 132.6 kg Last Vital Signs Temp 98.2 F 05/31/24 06:24 Pulse 78 05/31/24 06:24 Resp 18 05/31/24 06:24 BP 179/87 H 05/31/24 06:24 Pulse Ox 98 05/31/24 06:24 O2 Del Method Room Air 05/31/24 06:24 Allergies Allergy/AdvReac Type Severity Reaction Status Date / Time hydromorphone Allergy Intermediate Hypotension Verified 05/31/24 06:57 Penicillins Allergy Intermediate Hives Verified 05/31/24 06:57 MARJORIE Inhibitors AdvReac Severe angioedema Verified 05/31/24 06:57 Home Medications Medication Instructions Recorded Confirmed Type mineral oil (Mineral Oil Heavy 15 ml PO BID 12/15/20 05/25/24 History oral) diclofenac sodium 75 mg 75 mg PO BID #180 tabs 04/21/23 05/25/24 Rx tablet,delayed release epinephrine 0.3 mg/0.3 mL 0.3 mg (0.3 mL) IM ONCE #2 ea 08/14/23 05/25/24 Rx injection, auto-injector (EpiPen 2-Mendez) tamsulosin 0.4 mg capsule 0.4 mg PO DAILY #90 caps 03/08/24 05/25/24 Rx amlodipine 10 mg tablet 10 mg PO DAILY #90 tabs 04/19/24 05/25/24 Rx atorvastatin 20 mg tablet (Lipitor) 20 mg PO DAILY #90 tabs 04/19/24 05/25/24 Rx metoprolol succinate 100 mg 100 mg PO DAILY #90 tabs 04/20/24 05/25/24 Rx tablet,extended release 24 hr triamterene 37.5 1 tablet PO QAM #90 tabs 04/20/24 05/25/24 Rx mg-hydrochlorothiazide 25 mg tablet acetaminophen 500 mg capsule 1,000 mg PO Q6H PRN Pain 05/25/24 05/25/24 History montelukast 10 mg tablet 10 mg PO DAILY 05/25/24 05/25/24 History Patient hx anesthesia problems: none Family hx anesthesia problems: none Results Review: All pre-operative results and documents have been reviewed as part of the pre-operative evaluation. [facility] Past Medical History Medical History Angioedema Chronic low back pain Chronic neck pain Complete tear of left rotator cuff Hyperlipidemia Hypertension IFG (impaired fasting glucose) Obesity due to excess calories BRIANNA (obstructive sleep apnea) UTI (urinary tract infection) Oct 2023 Surgical History Surgical History History of bowel resection (~06/18/12) History of hernia repair (~12/10/14) Family History Family History Unknown Cancer Heart attack Hypertension Arthritis Father Malignant neoplasm of prostate Mother Cancer of unknown origin Social History Social History Social History: Smoking status: Never smoker Second hand tobacco smoke exposure: No Alcohol intake: current Drinks per week: 1 Alcohol use details: beer Substance use: never Substance use type: does not use Do You Feel Safe in your Home?: Yes Lack of Transportation: No Lack of Food: Never True Current Housing: I Have Housing Concerned About Future Housing: No Difficulty Paying Gas/Electric Bills: No Difficulty Paying for Meds: No Currently Unemployed: No Education: High School Diploma/GED Difficulty w/ Childcare or Family Care: No Living arrangements: with family Additional living arrangements comments: Occupation/Education: occupation Gender identity (if verbalized by the patient): Male Sexual Orientation (if Verbalized by the Patient): Straight or Heterosexual Spiritual care concerns: No Anes - Eval Final PreProcedure Day of Procedure 05/31/24 07:13 Patient weight: morbidly obese Heart: regular rate and rhythm Lungs: clear to auscultation
[2024-05-31] MEDS: ceFAZolin 3 GM/D5W 100 ML 100 ML IVPB (07:33)
[2024-05-31] MEDS: LIDOCAINE HCL 2% PF INJ 5 ML VIAL 10 ML INFILTRATE (08:05)
[2024-05-31] MEDS: BUPIVACAINE/EPINEPHRINE 0.5% 50 ML VIAL 10 ML INFILTRATE (08:06)
[2024-05-31] MEDS: LACTATED RINGERS 1,000 ML 30 ML IV CONT (09:01)
--- NOTE | 2024-05-31 10:27 | SUR.PHASEII ---
MD Miller contacted - pt requesting pain pill prior to discharge. Pt is being sent home with script for hydrocodone-acetaminophen 5-325mg from MD Jennings. Pt ok to receive same medication and dose once prior to discharge per MD Miller. Pt and verify no complications with this medication in the past.
[2024-05-31] MEDS: HYDROcodone/acetaminophen (*CRX) 5-325 MG TABLET 1 TAB PO (10:33)
== END 2024-05-31 11:02 | disposition home or self-care (01) ==
PROVIDERS: PCP Family Medicine; Visit Provider Anesthesiology Pain Medicine
PROC: (CPT 0275T; principal; 2024-05-31 07:30)
DX: M48.062 Spinal stenosis, lumbar region with neurogenic claudication (principal); I10 Essential (primary) hypertension; E78.5 Hyperlipidemia, unspecified; G47.33 Obstructive sleep apnea (adult) (pediatric); R73.01 Impaired fasting glucose; G89.29 Other chronic pain; M54.50 Low back pain, unspecified; M54.2 Cervicalgia; E66.01 Morbid (severe) obesity due to excess calories; Z68.42 Body mass index [BMI] 45.0-49.9, adult; Z98.890 Other specified postprocedural states; Z90.49 Acquired absence of other specified parts of digestive tract; Z80.42 Family history of malignant neoplasm of prostate; Z82.49 Family history of ischemic heart disease and other diseases of the circulatory system; Z00.6 Encounter for examination for normal comparison and control in clinical research program
CPT/HCPCS: 0275T; 99199; A9270; C1889; J0330; J0690; J2250; J2405; J2704; J3010; J7120

== ENCOUNTER 2024-07-21 09:56 | Outpatient (CLI) | payer MEDICARE, SELFPAY ==
[2024-07-21 10:29] LABS: Add Urine Microscopic? NO; Appearance Urine Clear (Clear); Basophils Absolute Auto 0.1 K/mm3 (0.0-0.1); Basophils Percent Auto 0.8 % (0.2-1.2); Bilirubin Urine Negative (Negative); Blood Urine Negative (Negative); Color Urine Yellow (Yellow); Eosinophils Absolute Auto 0.1 K/mm3 (0-0.3); Eosinophils Percent Auto 1.6 % (0-4.4); Glucose Urine UA Negative (Negative); Hematocrit 43.1 % (42.0-52.0); Hemoglobin 14.6 g/dL (14.0-18.0); Immature Granulocyte Absolute 0.01 K/mm3 (0.00-0.031); Immature Granulocyte Percent A 0.2 % (0-0.5); Ketones Urine Negative (Negative); Leukocyte Esterase Ur Negative LEU/UL (Negative); Lymphocytes Absolute Auto 2.22 K/mm3 (0.9-3.2); Lymphocytes Percent Auto 35.6 % (18.3-44.2); Mean Corpuscular HGB Conc 33.9 g/dl (32-36); Mean Corpuscular Hemoglobin 34.7 pg (26-34); Mean Corpuscular Volume 102.4 fl (80-100); Mean Platelet Volume 9.9 fl (7.4-10.4); Monocytes Absolute Auto 0.7 K/mm3 (0.1-0.6); Monocytes Percent Auto 10.4 % (2.6-8.5); Neutrophils Absolute Auto 3.2 K/mm3 (1.3-6.7); Neutrophils Percent Auto 51.4 % (45.5-73.1); Nitrate Urine Negative (Negative); Platelet Count Result 170 k/mm3 (150-375); Protein Urine Negative (Negative); Red Blood Count 4.21 M/mm3 (4.6-6.20); Red Cell Distribution Width 13.2 % (11.5-14.5); Specific Grav Ur 1.023 (1.001-1.035); White Blood Count 6.2 K/mm3 (4.5-10.0)
[2024-07-21 10:53] LABS: Alanine Aminotransferase 53 U/L (6-50); Albumin Level 4.9 g/dL (3.5-5.1); Alkaline Phosphatase 57 U/L (38-126); Anion Gap 14 mmol/L (4-12); Aspartate Amino Transferase 38 U/L (17-59); Bilirubin,Total 1.1 mg/dL (0.2-1.3); Blood Urea Nitrogen 18 mg/dL (9-20); Calcium 9.1 mg/dL (8.4-10.2); Carbon Dioxide 25 mmol/L (22-30); Chloride 97 mmol/L (98-107); Cholesterol 175 mg/dL (0-200); Estimated Glomerular Filt Rate > 60; Glucose 141 mg/dL (65-110); HDL Direct 38 mg/dL; Potassium 4.5 mmol/L (3.4-5.0); Sodium 136 mmol/L (137-145); Triglycerides 184 mg/dL (<150)
[2024-07-21 10:54] LABS: Creatinine Urine 187.2 mg/dL
[2024-07-21 11:03] LABS: MALB Creatinine Ratio < 3.2 mg/g (0-30); Microalbumin Urine Random < 6.0 mg/L (0-16.7)
[2024-07-21 11:06] LABS: LDL Cholesterol Direct 103 mg/dL
[2024-07-21 11:16] LABS: Prostate Specific Antigen 0.9 ng/mL (< OR = 4.0)
[2024-07-21 11:21] LABS: Thyroid Stimulating Hormone 0.985 uIU/mL (0.465-4.680)
[2024-07-21 11:26] LABS: Hemoglobin A1C 7.1 % (<5.7)
== END 2024-07-21 09:57 | disposition home or self-care (01) ==
PROVIDERS: PCP Family Medicine; Visit Provider Physician Assistant
DX: Z12.5 Encounter for screening for malignant neoplasm of prostate (principal); E11.9 Type 2 diabetes mellitus without complications; E78.5 Hyperlipidemia, unspecified; I10 Essential (primary) hypertension; I47.19 Other supraventricular tachycardia; R35.1 Nocturia
CPT/HCPCS: 36415; 80053; 80061; 81003; 82043; 83036; 84153; 84443; 85025; G0103

== ENCOUNTER 2024-09-09 11:04 | Outpatient (CLI) | payer MEDICARE, SELFPAY ==
--- NOTE | ~2024-09-09 | XR_ITS ---
XR hip BI 2V w AP pelvis 09/09/2024 11:37 Indication: Hip pain Procedure: AP pelvis and 2 views each hip Comparison: No prior studies for comparison. Findings: There is a possible nondisplaced fracture right superior pubic ramus. There is osteoarthrit is of the hips. There is lower lumbar spondylosis. Impression: 1: Possible nondisplaced right superior pubic ramus fracture. 2: Mild osteoarthritis of the hips. Reviewed, dictated and finalized at location B. ANCE EDUCATION DIRECTOR Impression: 1: Possible nondisplaced right superior pubic ramus fracture. 2: Mild osteoarthritis of the hips.
== END 2024-09-09 11:05 | disposition home or self-care (01) ==
PROVIDERS: PCP Family Medicine; Visit Provider Anesthesiology Pain Medicine
DX: M16.0 Bilateral primary osteoarthritis of hip (principal); G89.29 Other chronic pain; M54.50 Low back pain, unspecified; M25.552 Pain in left hip; M25.551 Pain in right hip
CPT/HCPCS: 73521

== ENCOUNTER 2024-09-09 16:15 | Outpatient (RCR) | payer MEDICARE, SELFPAY ==
--- NOTE | 2024-08-12 09:41 | OPREHPOC ---
Outpatient Therapy Plan of Care This is a Multidisciplinary Plan of Care that may contain components documented by all disciplines (PT, OT, and ST.) PT Problem 1 PT Problem #1 Knowledge Deficit PT Goal 1 Goal / Goal Update Gwinner with HEP for hip disassociation Target Visit 4 PT Problem 2 PT Problem #2 Pain PT Goal 1 Goal / Goal Update Report no pain greater than 2/10 with initiation of movement in the morning Target Visit 8 PT Problem 3 PT Problem #3 Impaired Range of Motion PT Goal 1 Goal / Goal Update Improve jamie hip abdcution to 40+ degrees to reduce adductor restriction to hip mobility Target Visit 8 PT Goal 2 Goal / Goal Update Demonstrate -25 degrees hamstring restriction to reduce posterior pelvic pull with activity Target Visit 8 PT Problem 4 PT Problem #4 Impaired Strength PT Goal 1 Goal / Goal Update Demonstrate jamie hip abduction strength to 4/5 to improve lateral pelvic stability with squatting and walking activity Target Visit 8 PT Goal 2 Goal / Goal Update Demonstrate even stride length with gait independent of compensated Trendelenburg Target Visit 8 PT Goal 1 Goal / Goal Update Demonstrate ability to perform 10# squat lift with proper hip mechanics to reduce lumbar strain Target Visit 8 PT Goal 2 Goal / Goal Update Demonstrate 8 consistent sit to stands without low back pain from chair Target Visit 8
--- NOTE | 2024-08-12 09:42 | PTOPEVAL1 ---
Assessment and note entered by Stas Vera, PT Evaluation Information Assessment Status Evaluation Diagnosis Spinal Stenosis, Spondylosis of lumbar spine ICD-10 Condition Codes (PT) Pain in low back M54.50 Onset November 2023 Subjective Information Reports that he feels he is back to square one after his surgery in May. He is having a lot of pain in the low back. He is having difficulty doing yard work, taking care of the house, and getting around. 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 He has not been able to walk any distance without taking a break and has to lean over a cart when he is walking through the stores. Pain will occasionally radiate down into both of his hips. He is sleeping well but has a hard time getting going in the morning. Reports that he did have a fall 3 weeks ago. Reported Pain Level Pain Score 5: Self Report Assessment PT Clinical Summary Patient presents with signs and symptoms consistent with stenotic in nature activity and very poor hip mobility causing translation of stress into lumbar spine. Patient has weakness in jamie dorsiflexion reflective of long-term nerve irritation of L5 myotome. Patient will benefit from skilled therapy to work towards disassociation of hips and stabilization of lumbar spine. Plan of Care Interventions Electrical Stimulation,Gait Training,Hot Pack/Cold Pack,Manual Therapy,Neuro Re-education, Therapeutic Activities,Therapeutic Exercise PT Services Indicated Yes Treatment Frequency and 1-2x/week for 8 visits Duration These treatments will address the objective and functional deficits as defined above. The patient will be advanced safely and appropriately in order for the patient to progress towards his/her prior level of function. Additional exercises will be introduced and as well as a comprehensive home exercise program upon discharge, if needed, ?to ensure carryover of functional gains achieved in the clinic. This treatment plan has been reviewed and agreement upon by the patient.
--- NOTE | 2024-09-02 12:51 | PCPTNOTE ---
Pt did not arrive for his 1230 appointment today
--- NOTE | 2024-09-09 17:29 | PTOPDC ---
Assessment and note entered by Stas Vera, PT Evaluation Information Assessment Status Discharge Diagnosis Spinal Stenosis, Spondylosis of lumbar spine ICD-10 Condition Codes (PT) Pain in low back M54.50 Onset November 2023 Subjective Information Reports that after following up with MD he decided to move forward with a nerve ablation procedure. Reports that he continues to struggle with pain and wonders how involved possible hip issues are affecting his recovery. Would like to hold on therapy at this time. Reported Pain Level Pain Score 4: Self Report Assessment PT Clinical Summary Patient has seen some improvement in hip mobility and strength but still significantly limited by pain at this time. He has a good understanding of HEP to address his deficits and will follow up with PT if needed in future. Plan of Care PT Services Indicated Yes
== END 2024-09-15 13:56 | disposition home or self-care (01) ==
LOC: ANHPT 16:15
PROVIDERS: PCP Family Medicine; Visit Provider Anesthesiology Pain Medicine
DX: M54.50 Low back pain, unspecified (principal); M54.9 Dorsalgia, unspecified; M54.51 Vertebrogenic low back pain; M48.062 Spinal stenosis, lumbar region with neurogenic claudication; M47.817 Spondylosis without myelopathy or radiculopathy, lumbosacral region; G89.29 Other chronic pain
CPT/HCPCS: 97014; 97110; 97140; 97161; 97530; G0283

== ENCOUNTER 2024-12-08 09:23 | Outpatient (CLI) | payer MEDICARE, SELFPAY ==
--- NOTE | 2024-12-08 09:30 | ECG_ITS ---
Test Date: 2024-12-08 09:52:03 Measurements Intervals [place] Rate: 70 P: 60 [place]: 171 QRS: 16 QRSD: 107 T: 24 QT: 367 QTc: 396 Interpretive Statements SINUS RHYTHM WITH MARKED SINUS ARRHYTHMIA BASELINE ARTIFACT- I, II, III, AVR, AVL, AVF NORMAL ECG No previous ECG available for comparison Electronically Signed On 12-08-2024 13:38:22 ELECTRIC METER READER by Dejon Fowler D.O.
--- OUTSIDE RECORDS SUMMARY | 2024-12-08 10:02 | XMS_ITS | Referral Summary ---
Author Organization [email or web address] Address [address] [place] [address] Care Team Providers Care Slide Maker Name Role Phone Unavailable Primary Care Provider Unavailabl e Source Comments [email or web address],non-owned Affiliates and Associated Physician Practices is amultiple site organization consisting of ambulatory clinics and hospital sitesin [place], [place], [place] and [place]. This disclosure is being madepursuant to the Care Everywhere program and may not contain all information available regarding this patient. Last updated 18.[email or web address] Allergies No known active allergies Medications * Be aware that medications may not be up to date on this document. Alwaysverify current medications with the patient. Medication Sig Dispensed Refills Start Date End Date Status metoprolol tartrate IR (LOPRESSOR) 100 MG tablet Take 100 mg by mouth. Active hydrochlorothiazide (HYDRODIURIL) 25 MG tablet Take 25 mg by mouth once daily. Active quinapril (ACCUPRIL) 40 MG tablet Take 40 mg by mouth once daily. Active diclofenac sodium (VOLTAREN) 75 MG tablet TBEC Take 1 Tab by mouth 2 times daily. 90 Tab 5 05/03/2013 Active Social History Tobacco Use Types Packs/Day Years Used Date Smoking Tobacco: Never Assessed Sex and Gender Information Value Date Recorded Sex Assigned at Not on file Gender Identity Not on file Sexual Orientation Not on file Plan of Treatment Not on file
--- OUTSIDE RECORDS SUMMARY | 2024-12-08 10:02 | XMS_ITS | Clinical Summary ---
Author Organization [facility] Address [address] [place] [address] Care Team Providers Care Dispatcher Bus And Trolley Name Role Phone Unavailable Primary Care Provider Unavailabl e Source Comments [facility],non-owned Affiliates and Associated Physician Practices is amultiple site organization consisting of ambulatory clinics and hospital sitesin [place]. This disclosure is being madepursuant to the Care Everywhere program and may not contain all information available regarding this patient. Last updated 18.[facility] Allergies No known active allergies Medications * [...] Orientation Not on file Plan of Treatment Health Maintenance Due Date Last Done Comments COLOGUARD (AGES 45-75) - COL ON CA SCREENING 1957 COLON MONITORING 1957 COLONOSCOPY - COLON CA SCREENING 1957 CT COLONOGRAPHY - COLON CA SCREENING 1957 Colorectal Cancer Screening 1957 FIT - COLON CA SCREENING 1957 FLEX SIG - COLON CA SCREENING 1957 LIPID TESTING 1957 HEPATITIS C SCREENING 10/16/1975 DTAP/TDAP/TD VACCINES (1 - Tdap) 1976 PNEUMOCOCCAL VACCINE 50+ (1 of 1 - PCV) 2007 ZOSTER VACCINE (1 of 2) 2007 COVID-19 VACCINE (1 - 2023-2 5 season) 2024 INFLUENZA VACCINE (#1) 2024 DEPRESSION SCREENING 11/03/2024 Respiratory Syncytial Virus (RSV) Vaccine Pt: or over 60 yrs (1 - 1-dose 75+ series) 2032 HEPATITIS B VACCINE Aged Out No longe r eligible based on patient's age to complete this topic HIB VACCINE Aged Out No longer eligi ble based on patient's age to complete this topic HPV VACCINE Aged Out No longer eligi ble based on patient's age to complete this topic MENINGOCOCCAL (Group B) VACCINE Aged Out No longer eligible based on patient's age to complete this topic MENINGOCOCCAL VACCINE Aged Out No eder melo eligible based on patient's age to complete this topic
--- OUTSIDE RECORDS SUMMARY | 2024-12-08 10:02 | XMS_ITS | Patient Health Summary ---
Author Organization [facility] Address [address] [place] [address] Care Team Providers Care Gastroenterology Nurse Practitioner Name Role Phone Unavailable Primary Care Provider Unavailabl e Note from [facility],non-owned Affiliates and Associated Physician Practices is amultiple site organization consisting of ambulatory clinics and hospital sitesin [place], [place]. This disclosure is being madepursuant to the Care Everywhere program and may not contain all information available regarding this patient. Last updated 18.[facility] Allergies No known active allergies Medications * Be aware that medications may not be up to date on this document. Alwaysverify current medications with the patient. * metoprolol tartrate IR (LOPRESSOR) 100 MG tablet Take 100 mg by mouth. * hydrochlorothiazide (HYDRODIURIL) 25 MG tablet Take 25 mg by mouth once daily. * quinapril (ACCUPRIL) 40 MG tablet Take 40 mg by mouth once daily. * diclofenac sodium (VOLTAREN) 75 MG tablet TBE(Started 05/03/2013) Take 1 Tab by mouth 2 times daily. 5 refills left Social History Tobacco Use Types Packs/Day Years Used Date Smoking Tobacco: Never Assessed Sex and Gender Information Value Date Recorded Sex Assigned at Not on file Gender Identity Not on file Sexual Orientation Not on file Procedures * CT CERVICAL SPINE W CONTRAST(Performed 05/18/2009) Performed for Cervical Spondylosis * FL MYELOGRAM CERVICAL(Performed 05/18/2009) Performed for Cervical Spondylosis Results * CT CERVICAL SPINE WITH CONTRAST (05/18/2009 10:30 AM CDT) Anatomical Region Laterality Modality Spine Other 05/18/2009 10:3 0 AM CDT Narrative 05/18/2009 1:[address] cervical spine with contrast, post myelography DATE- 05/18/2009 INDICATION- Progressive neck pain, numbness in right fingers. TECHNIQUE- Please refer to cervical myelogram report for procedural details. Multidetector CT was performed through the cervical spine with angled axial and sagittal reformations following myelography. FINDINGS- The cervical vertebral bodies are normally aligned. There is mild narrowing of the cervical discs greatest between C4 and C7. There is no subluxation or prevertebral swelling. There is no high-grade central stenosis. At C2-C3 there are no significant findings. At C3-C4 a right paracentral disc spur complex touches the right portion of the cord but without central or foraminal stenosis. At C4-C5 a right paracentral disc spur complex touches the cord but without central or neural foraminal stenosis. At C5-C6 a mild broad-based disc spur complex touches the cord in the midline but without central or neural foraminal stenosis. At C6-C7 a disc spur complex touches the cord in the midline without central or neural foraminal stenosis. At C7-T1 there are no significant findings. IMPRESSION- 1. No cervical central or foraminal stenosis. 2. Multilevel disc-spur complexes which touch the cord on the right and in the midline. ? Reading Radiologist- JEAN-PIERRE ORDONEZ ??M.D. ? Releasing Radiologist- JEAN-PIERRE ORDONEZ ??M.D. ? Released Date Time- 05/18/09 1355 ? 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 - JACIEL RODRÍGUEZ ? ATT- JACIEL RODRÍGUEZ REF- JACIEL RODRÍGUEZ ? CON- PCP- ?SCP- JACIEL RODRÍGUEZ Procedure Note José Luis Jean-Pierre - 05/18/2009 CT cervical spine with contrast, post myelography DATE- 05/18/2009 INDICATION- Progressive neck pain, numbness in right fingers. TECHNIQUE- Please refer to cervical myelogram report for procedural details. Multidetector CT was performed through the cervical spine with angled axial and sagittal reformations following myelography. FINDINGS- The cervical vertebral bodies are normally aligned. There is mild narrowing of the cervical discs greatest between C4 and C7. There is no subluxation or prevertebral swelling. There is no high-grade central stenosis. At C2-C3 there are no significant findings. At C3-C4 a right paracentral disc spur complex touches the right portion of the cord but without central or foraminal stenosis. At C4-C5 a right paracentral disc spur complex touches the cord but without central or neural foraminal stenosis. At C5-C6 a mild broad-based disc spur complex touches the cord in the midline but without central or neural foraminal stenosis. At C6-C7 a disc spur complex touches the cord in the midline without central or neural foraminal stenosis. At C7-T1 there are no significant findings. IMPRESSION- 1. No cervical central or foraminal stenosis. 2. Multilevel disc-spur complexes which touch the cord on the right and in the midline. Reading RadiologistTeresa ORDONEZ M.D. Releasing Luz ORDONEZ M.D. Released Date Time- 05/18/09 1355 [employer]- BRIT ADM- JACIEL RODRÍGUEZ GREGORY J REFJACIEL LOVETT [facility]T Jaciel Rodríguez MD CT ORDERABLES * FL FLUORO MYEOLOGRAM CERVICAL (05/18/2009 9:30 AM CDT) Anatomical Region Laterality Modality Spine Other 05/18/2009 9:30 AM CDT Narrative 05/18/2009 1:53 PM CDT Cervical myelogram DATE- 05/18/1009. INDICATION- Neck pain, numbness in the right fourth and fifth fingers. Radiologist- Jean-Pierre Ordonez M.D. TECHNIQUE- After obtaining written, informed consent, the patient was placed prone and an entry site over the mid lumbar spine was selected and sterilely prepped and draped in the usual fashion. 1% lidocaine was used as a subcutaneous anesthetic. Under fluoroscopic guidance a 22-gauge spinal needle was passed into the thecal sac in the midline at L1-L2, obtaining clear CSF. Approximately 10 cc of Omnipaque 300 was injected under fluoroscopic guidance. The needle was then removed. The table was tilted to localize contrast in the cervical region. However the degree of tilt necessary was greater than could be obtained on this fluoroscopy table. Therefore diagnostic fluoroscopic images were not obtained of the cervical region. The table was left in this position long enough to allow contrast to diffuse into the neck for the CT images. The patient tolerated the procedure well and no complications were encountered. ??Please refer to cervical CT report for findings. IMPRESSION- Cervical myelogram. ? Reading Luz ORDONEZ ??M.D. ? Releasing Luz ORDONEZ ??M.D. ? Released Date Time- 05/18/09 1353 ? 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 ADM- JACIEL RODRÍGUEZ ? ATT- JACIEL RODRÍGUEZ REF- JACIEL RODRÍGUEZ ? CON- PCP- ?SCP- JACIEL RODRÍGUEZ Procedure Note AiyanabelgicaJean-Pierre - 05/18/2009 Cervical myelogram DATE- 05/18/1009. INDICATION- Neck pain, numbness in the right fourth and fifth fingers. Luz Ordonez M.D. TECHNIQUE- After obtaining written, informed consent, the patient was placed prone and an entry site over the mid lumbar spine was selected and sterilely prepped and draped in the usual fashion. 1% lidocaine was used as a subcutaneous anesthetic. Under fluoroscopic guidance a 22-gauge spinal needle was passed into the thecal sac in the midline at L1-L2, obtaining clear CSF. Approximately 10 cc of Omnipaque 300 was injected under fluoroscopic guidance. The needle was then removed. The table was tilted to localize contrast in the cervical region. However the degree of tilt necessary was greater than could be obtained on this fluoroscopy table. Therefore diagnostic fluoroscopic images were not obtained of the cervical region. The table was left in this position long enough to allow contrast to diffuse into the neck for the CT images. The patient tolerated the procedure well and no complications were encountered. Please refer to cervical CT report for findings. IMPRESSION- Cervical myelogram. Reading Luz ORDONEZ M.D. Releasing Luz ORDONEZ M.D. Released Date Time- 05/18/09 1353 [employer]- AMD JACIEL CROWE GREGORY J REF- BAILEY, GREGORY J CON- PCP- JACIEL HALEY Jaciel Rodríguez MD [facility] ORDERABL ES
[2024-12-08 10:14] LABS: Anion Gap 13 mmol/L (4-12); Blood Urea Nitrogen 21 mg/dL (9-20); Calcium 9.1 mg/dL (8.4-10.2); Carbon Dioxide 25 mmol/L (22-30); Chloride 103 mmol/L (98-107); Estimated Glomerular Filt Rate > 60; Glucose 169 mg/dL (65-110); Potassium 4.7 mmol/L (3.4-5.0); Sodium 141 mmol/L (137-145)
== END 2024-12-08 09:24 | disposition home or self-care (01) ==
LOC: ANHSURGERY 09:28
PROVIDERS: Anesthesiology; PCP Family Medicine; Visit Provider Anesthesiology Pain Medicine
DX: I10 Essential (primary) hypertension (principal); Z79.899 Other long term (current) drug therapy
CPT/HCPCS: 36415; 80048; 93005

== ENCOUNTER 2024-12-14 00:18 | Day surgery (SDC) | payer MEDICARE, SELFPAY ==
--- NOTE | 2024-12-01 15:21 | PC.NURSE ---
Report to the Outpatient Waiting Room, entrance under the green pavilion located off [facility], at time __0600am on date 12/14/24 . Planned Procedure Time: _0730am .? Time changes happen often and if your time is changed the preop area will call you the afternoon before. - You and your visitor will be asked to self-screen and do not enter if you have any COVID symptoms. Please call surgeon if you need to reschedule. - A mask is optional within the hospital at this time. Patients may have - No food from midnight until time of surgery and no smoking. This includes no chewing gum, candy or mints. Take only the following medications with a SIP of water on the morning of surgery: Amlodipine and Metoprolol DO NOT STOP ANY OF YOUR OTHER PRESCRIPTION MEDICATIONS PRIOR TO SURGERY EXCEPT THE FOLLOWING Medications to discontinue per physician ____Pt to call Dr Jennings office regarding NSAIDS/Diclofenac and instructions- Hold all vitamins and supplements for 3 days per anesthesiologist. Date to take last dose__12/10/24 Please no make-up, nail bengali, hairspray, perfume, deodorant, or body powder the day of surgery.? No jewelry (including any body piercings) or valuables the day of surgery, leave them at home.? Please take a shower or bath the night before, & the morning of, surgery with an antibacterial soap.? Wear comfortable, loose fitting clothing.? - Jewelry must be removed prior to entering the operating room.? Rings and piercings that are not removed may be cut off. - The hospital will not accept responsibility for valuables.? - Please leave all valuables, including medications, at home the day of surgery. If you are going home after surgery, a licensed armor reconnaissance vehicle driver must drive you home.? - NO public transportation without another adult if you receive anesthesia. - We recommend that an adult stay with you for 24 hours following discharge. - We also recommend that you do not drive, make important decision, drink alcoholic beverages, or take any drugs that were not prescribed by your health care provider for at least 24 hours after your discharge time. Follow any additional instructions given to you from your surgeon. Telephone instructions given to _Patient and asked if any additional questions and then verbalized understanding. Patient advised to call surgeon office or pre surgery nurse liaison [phone] if any additional questions.
[2024-12-01 15:25] VITALS: BMI 46.9
[2024-12-14] VITALS (8 sets, daily range): BP systolic 136–185; BP diastolic 72–93; PULSE 72–85; RESP 15–20; TEMP 36.6–37.3; O2SAT 93–97
--- NOTE | ~2024-12-14 | XR_ITS ---
EXAMINATION: XR fluoroscopy no charge DATE: 12/14/2024 09:14 INDICATION: Excessive procedure at L3-L4 TECHNIQUE: 39 fluoroscopic images of the lumbar spine were obtained during procedure performed by Dr. Jennings. Radiologist was not present for the imaging or procedure. The amount of fluoroscopy time used during this procedure was 5.1 minutes. Total DAP was 43.983 Gycm^2. COMPARISON: None. FINDINGS: Images demonstrate a thin spinal needle advanced to the posterior margin of the right-sided pedicle a t L5 likely for local anesthesia. Subsequent images demonstrate a larger needles progressively advanc ing through the pedicle into the peripheral margin of the vertebral body. Probes likely for thermal a blation advancing the needle in the distal tips extending across the midline to the junction of the p osterior middle thirds of the vertebral body. This procedure and subsequently repeated in identical f ashion at the left pedicle of L4, the right pedicle at L3 and the left pedicle at L2. IMPRESSION: 1. Fluoroscopy utilized during likely thermal ablation procedures at the L2-L5 vertebral bodies. See procedure note for further detail. Reviewed, dictated and finalized at location A. THERAPIST
--- OUTSIDE RECORDS SUMMARY | 2024-12-14 00:22 | XMS_ITS ---
Author Organization [facility] Address [address] [place] [address] Care Team Providers Care Veterans Service Representative Name Role Phone Royce Elizondo MD Primary Care Provider Unavaila Tamika Lei Unavailable [phone] Allergies Allergen (clinical drug ingredient) Drug/Non Drug Allergy documented on EMR Reaction Allergy Type Onset Date Status hydromorphone Dilaudid other reaction Drug Allergy Active penicillin V penicillin V potassium rash Drug Allergy Active penicillin G penicillin G potassium rash Drug Allergy Active REASON FOR VISIT Two episodes of angioedema - lower lip swelling on 08/05/23 - treated with IV Benadryl and steroids and tongue swelling on 08/12/23 - treated with IV Benadryl and steroids. Lisinopril and ASA discontinued. No episodes until 12/12/23 and 12/13/23. One episode of left forehead/eyebrow swelling and lower lip swelling. Benadryl take with resolution of symptoms within 2 hours. Medications Medication SIG (Take, Route, Frequency, Duration) Notes Start Date End Date Status HYDROCHLOROTHIAZIDE 25 mg 1 tab(s) orall y once a day Active MONTELUKAST 10 mg 1 tab(s) orally once a day for 90 days Active EPINEPHRINE 0.3 mg as directed intramuscularly once Active CETIRIZINE 10 mg 1 tab(s) orally BID for 30 days Active PEPCID 20 mg 1 tab(s) orally 2 times a day for 30 days Active TAMSULOSIN 0.4 mg 1 cap(s) orally once a day for 30 day(s) Active METOPROLOL SUCCINATE ER 50 mg 1 tab(s) orally once a day Active AMLODIPINE 10 mg 1 tab(s) orally once a day Active DICLOFENAC sodium 75 mg 1 tab(s) orally 2 times a day Active LIPITOR 20 mg 1 tab(s) orally once a day for 30 day(s) Active FAMOTIDINE 20 mg 1 tab(s) orally once a day Not-Taking PREDNISONE 20 mg 2 tab(s) orally once a day Not-Taking ASPIRIN 81 mg 1 tab(s) orally once a day for 30 day(s) Not-Taking Social History Tobacco Use: Social History Observation Description Date Details (start date - stop date) Never Smoker NA - NA Smoking Smart Form: Question Answer Notes Are you a: never smoker Vital Signs Blood pressure systolic 166 mm Hg 12/17/19 24 Blood pressure diastolic 92 mm Hg 024 Respiratory Rate 18 /min 12/17/2023 Oximetry 97 % 12/17/2023 Height 66 in 12/17/2023 Weight 299 lbs 12/17/2023 BMI 48.25 kg/m2 12/17/2023 Encounters Encounter Location Date Provider Diagnosis [facility] [address] [facility] [address] [place] [id number] 12/17/2023 Tamika Michelle Angioneurotic edema, initial encounter T78.3XXA ; Adverse effect of angiotensin-convertin g-enzyme inhibitors, initial encounter T46.4X5A ; Essential (primary) hypertension I10 and Allergy status to penicillin Z88.0 Assessments Encounter Date Diagnosis (ICD Code) Assessment Notes Treatment Notes Treatment Clinical Notes Section Notes 12/17/2023 Angioneurotic edema, initial encounter (ICD-10 - T78.3XXA) Neymar reports 2 episodes of angioedema - lower lip swelling occurred on 08/05/23. Treated at [facility] with IV Benadryl and steroids with resolution of symptoms. Second episode occurred on 08/12/23 with tongue swelling and throat feeling restricted . Treated again at ER with IV Benadryl and PO steroids with resolution of symptoms. No family history of swelling. Denies known tick bite. Of note, the patient is not currently reporting B symptoms suggestive of malignancy. Now reporting one episode of left eyebrow/forehead swelling on 12/12/23 and one episode of lower lip swelling on 12/13/23. Benadryl taken with resolution of symptoms within 2 hours. -Records requested from [facility], still pending. -Continue to carry AIE at all times. Proper demonstration and education previously provided. Instructed to use AIE if swelling reoccurs to assess for benefit. -In an abstract from the [place] presented at the 2018 [employer] meeting, out of 150 patients, 12% had a recurrent episode of angioedema after stopping the MARJORIE inhibitor, the majority within 12 months of ACEI discontinuation, but 28% between 12 months to 72 months later. I reviewed this with the patient again as he last took ACEI 4 months ago. He was also counseled in the hospital that it was likely the MARJORIE inhibitor. -Continue to hold ASA, MARJORIE inhibitors and ARBs in addition to NSAIDs. Medication list previously given. -Prior laboratory work essentially normal, CBC shows minor abnormalities concerning for anemia. Forwarded to PCP. Consider repeat CBC per PCP. -Continue Zyrtec BID, Pepcid BID and Singulair daily to assess if we can prevent symptoms from occurring. Refill sent for Singulair. -Recommend Zyrtec for interval swelling and avoiding Benadryl due to crossing of BBB. -Discussed continue to journaling for triggers and taking photos if swelling reoccurs. -Discussed plan with Dr. Bowman and he is in agreement to continue course. -Follow-up in 3 months for E&M 12/17/2023 Adverse effect of angiotensin-conve rting-enzyme inhibitors, initial encounter (ICD-10 - T46.4X5A) Continue strict avoidance of drug class 12/17/2023 Essential (primary) hypertension (ICD-10 - I10) Elevated blood pressure in office today without signs or symptoms of hypertensive crisis. Patient has been monitoring BP at home, reporting 130s/70s in the evenings. Continue serial checks and follow-up per PCP. -If meds are needed, consider avoiding beta-blockers due to difficulty in treating systemic reactions in patients taking beta blockers. -Slated for cardiology evaluation in 01/2024 given abnormalities seen on Holter monitor. 12/17/2023 Allergy status to penicillin (ICD-10 - Z88.0) Patient reported hives after PCN ingestions. Consider PCN testing in future 12/17/2023 Other Plan Of Treatment Medication Medication Name Sig Start Date Stop Date Notes HYDROCHLOROTHIAZIDE 25 mg 1 tab(s) orally once a day MONTELUKAST 10 mg 1 tab(s) orally once a day for 90 days EPINEPHRINE 0.3 mg as directed intramus cularly once CETIRIZINE 10 mg 1 tab(s) orally BID for 30 days PEPCID 20 mg 1 tab(s) orally 2 ti mes a day for 30 days METOPROLOL SUCCINATE ER 50 mg 1 tab(s) orally once a day AMLODIPINE 10 mg 1 tab(s) orally once a day Treatment Notes Assessment Notes Angioneurotic edema, initial encounter Neymar reports 2 episodes of angioedema - lower lip swelling occurred on 08/05/23. Treated at [facility] with IV Benadryl and steroids with resolution of symptoms. Second episode occurred on 08/12/23 with tongue swelling and throat feeling restricted . Treated again at ER with IV Benadryl and PO steroids with resolution of symptoms. No family history of swelling. Denies known tick bite. Of note, the patient is not currently reporting B symptoms suggestive of malignancy. Now reporting one episode of left eyebrow/forehead swelling on 12/12/23 and one episode of lower lip swelling on 12/13/23. Benadryl taken with resolution of symptoms within 2 hours. -Records requested from [facility], still pending. -Continue to carry AIE at all times. Proper demonstration and education previously provided. Instructed to use AIE if swelling reoccurs to assess for benefit. -[place] [facility] [place], out of 150 patients, 12% had a recurrent episode of angioedema after stopping the MARJORIE inhibitor, the majority within 12 months of ACEI discontinuation, but 28% between 12 months to 72 months later. I reviewed this with the patient again as he last took ACEI 4 months ago. He was also counseled in the hospital that it was likely the MARJORIE inhibitor. -Continue to hold ASA, MARJORIE inhibitors and ARBs in addition to NSAIDs. Medication list previously given. -Prior laboratory work essentially normal, CBC shows minor abnormalities concerning for anemia. Forwarded to PCP. Consider repeat CBC per PCP. -Continue Zyrtec BID, Pepcid BID and Singulair daily to assess if we can prevent symptoms from occurring. Refill sent for Singulair. -Recommend Zyrtec for interval swelling and avoiding Benadryl due to crossing of BBB. -Discussed continue to journaling for triggers and taking photos if swelling reoccurs. -Discussed plan with Dr. Bowman and he is in agreement to continue course. -Follow-up in 3 months for E&M Adverse effect of rtikpgupaga-bimneaxxcn-dggxfx inhibitors, initial encounter Continue strict avoidance of drug class Essential (primary) hypertension Elevated blood pressure in office today without signs or symptoms of hypertensive crisis. Patient has been monitoring BP at home, reporting 130s/70s in the evenings. Continue serial checks and follow-up per PCP. -If meds are needed, consider avoiding beta-blockers due to difficulty in treating systemic reactions in patients taking beta blockers. -Slated for cardiology evaluation in 01/2024 given abnormalities seen on Holter monitor. Allergy status to penicillin Patient rep orted hives after PCN ingestions. Consider PCN testing in future Next Appt Details Follow Up: 3 Months, Reason: Evaluation and Management Progress Notes * GAVINDejonNeymar EDOB:1955 (68 yo M)Acc No.[id number]:12/17/2023 Progress Notes Patient: Neymar CALHOUN Provider: ALEX Mohan :1955 A ge:68 Y S ex:Male Date:12/17/2023 Address:[address] [place], [place] [id number] Pcp:Royce Elizondo MD Subjective: * Chief Complaints: * T wo episodes of angioedema - lower lip swelling on 08/05/23 - treated with IV Benadryl and steroids and tongue swelling on 08/12/23 - treated with IV Benadryl and steroids. Lisinopril and ASA discontinued. No episodes until 12/12/23 and 12/13/23. One episode of left forehead/eyebrow swelling and lower lip swelling. Benadryl take with resolution of symptoms within 2 hours. * HPI: * Introduction: I had the pleasure of seeing Rosa De La Garza, a 67 year old male with a history of hypertension and obesity here today in referral with Dr. Royce Elizondo for interval evaluation and management. He is alone for today's visit. He has been doing well since last visit with no interval swelling episodes noted until 12/12/23 when he woke up with forehead swelling above left eye and lower lip swelling on 12/13/23. Benadryl taken both instances with syptoms resolution within 2 hours. He denies all other symptoms. Denies itching, pain. No change in medications. He continues on Zyrtec and Pepcid BID, Singulair PM. P rior laboratory workup essentially normal. He continues to carry AIE at all times. He was scheduled for back procedure this month, but PCP was concerned given he has had poor response to anesthesia in past. Recent Holter monitor?evaluation s howed PVCs and atrial tachycardia. He is slated for cardiology appointment at [facility] i n 01/2024. Back procedure is on hold at this time. He went to part-time at beginning of 2023. H istorically, Neymar reported an episode of lower lip swelling that occurred approximately 10PM 08/05/23. He presented to [facility] where he was given IV Benadryl and steroids with resolution in swelling within 4-5 hours. At that time, he was taking lisinopril and it was discontinued. One week later around 8AM, tongue swelling began and his throat felt restricted. He presented to ER and was given IV Benadryl and fluids with reduction in swelling. He was discharged with PO steroids, to be completed tomorrow. Aspirin was discontinued at that time. Dr. Elizondo encouraged him to avoid NSAIDs as he was taking Aleve for chronic back pain. He was also prescribed AIE and carries at all times. He denies rash, hives, no changes in diet. He denies family history of swelling, but does report father developed a peanut allergy at age 60. He denies frequent infections, inhaler usage, PO steroids for lower airways. Today, he reports no fevers, chills, night sweats or other constitutional symptoms. * ROS: A LLERGY: Positive p er the HPI and history, otherwise unremarkable.?runny nose N o. s cratchy throat N o. i tchy eyes N o. e ar fullness?No. s inus congestion N o. S PECIAL SENSES: Positve for n one. c ataracts N o. g laucoma?No. l oss of hearing Y es. i tching in ears N o. r inging in ears Y es.?loss of balance N o. l oss of smell Y es. d ry eyes N o. e xcessive tearing N o. i tching eyes N o. l oss of taste N o. c onjunctivitis N o.?ear infections N o. C ONSTITUTIONAL: weight gain N o. l oss of appetite N o. f ever?No. w eight loss N o. f atigue N o. n ight sweats N o. P ositive for n one. E NT: cold N o. c ough N o. e pistaxis N o. h earing loss N o. c hange in voice N o. s ore throat N o. r inging in ears?No. s inus pain N o. P ositive p er the HPI and history, otherwise unremarkable.? R ESPIRATORY: shortness of breath N o. c hest pain N o. c hest congestion N o. c ough Y es. P ositive p er the HPI and history, otherwise unremakable. O PHTHALMOLOGY: diminished vision N o. e ye irritation N o. d rainage from eyes N o. b lurring of vision N o. s easonal eye sx N o. P ositive for p er the HPI and history, otherwise unremarkable. i tching N o. s ensitivity to light N o. d ischarge N o. w atering N o. s welling of the eyelids N o. r edness N o. E NDOCRINOLOGY: fatigue N o. p olydipsia N o. p olyuria Y es. w eight loss N o. s leep disturbance N o. c old intolerance N o. h eat intolerance N o. d iabetes N o. P ositive for n one. C ARDIOLOGY: chest pain N o. p alpitations N o. l eg edema?No. d izziness N o. s hortness of breath N o. P ositive for n one. ? G ASTROENTEROLOGY: dysphagia N o. a bdominal pain N o. n ausea?No. v omiting N o. c onstipation N o. d iarrhea N o. b lood in stool?No. i ndigestion N o. h emorrhoids N o. P ositive for n one. ? U ROLOGY: difficulty urinating N o. b lood in urine N o. f requent urination Y es. u rinary incontinence N o. r ecurrent UTI N o. P ositive for n one. D ERMATOLOGY: rash N o. m ole N o. l umps N o. d ry or sensitive skin N o. h shanon (urticaria) N o. a cne N o. s kin cancer N o. P ositive for p er the HPI and history, otherwise unremakable. N EUROLOGY: headache N o. t ingling numbness N o. s eizures?No. i nsomnia N o. m margarette loss N o. d izziness N o. g ait abnormality N o. P ositive for n one. H EMATOLOGY/LYMPH: Positive for n one. M USCULOSKELETAL: joint swelling N o. j oint pain N o. l eg cramps N o. j oint stiffness N o. s ciatica N o. o steoporosis N o. f racture N o. c arpal tunnel Y es. g out N o. P ositive for n one. ? P SYCHOLOGY: high stress level N o. d epression N o. s leep disturbances N o. s uicidal ideation N o. e ating disorder N o. m ental or physical abuse N o. a nxiety N o. P ositive for n one. M PIO REPRODUCTIVE: difficulty with erection N o. d iminished sexual drive?No. p enile discharge N o. i nfertility N o. A ll other review of systems per the HPI and history, otherwise unremarkable. * Medical History: * Surgical History: b owel resuction 2012hernia 2014 * Hospitalization/Major Diagno stic Procedure: s ee surgery hx * Family History: F ather: Yes. M other: Yes. P aternal Grand Father: Yes. P aternal Grand Mother: Yes. S iblings: Yes. C hildren: Yes. 3 brother(s) . 1 son(s) , 1 daughter(s) - healthy. . oldest brother- prostate cancer. * Social History: M arital Status What is your marital status? m arried A lcohol Screening Do you ever drink alcoholic beverages? Y es Number of drinks per occasion: 2 Frequency? Andre nails Have you ever smoked tobacco: n ever smoked Are you a : n ever smoker S jesu Smart Form Are you a: n ever smoker R ecreational drug use Have you ever used recreational drugs? N o D etails on consumption of certain products? Do you regularly consume products with aspartame; Equal or NutraSweet? Y es Do you regularly consume products with artificial coloring??Yes Have you ever noticed worsening of your rash with these food items? N o E xercise What kind(s) of exercise do you perform regularly? a ge-appropriate participation in physical activites How often do you perform this exercise? d aily A re any of the following personal care products containing fragrance, dye or preservatives used regularly? Shampoo: Y es Soap: Y es Laundry Detergent: Y es Fabric Softener: Y es Deodorant: Y es Perfume, cologne, after shave: Y es O ccupation Are you currenly employed? Y es Employment status? 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 number of years?45 Do you believe that your current or previous occupation has any bearing on your illness? N o How much work have you missed due to breathing difficulty within the past year? 1 or 2 days Please describe the effect of your illness on your job l oss of work,loss of income Do you have any pending or planned legal action against your current or former employer which pertains to your medical illness? N o Do you anticipate that your evaluation will be used in any legal action against your current employer or former employer? N o Have you had any job with high exposure to fumes, chemicals, dust or other noxious substances? N o Are you currently a student? N o E nvironmental History Living environment: p rivate home Where is the home located? r ural Age of home: 3 5 How long have you lived there? 5 years or more How many people live in the home? 2 H ome description Basement: Y es Any water damage in basement? N o Smokers in the home? N o Smokers outside the home? N o Air Conditioning? Y es Central Air? Y es Forced air heating? Y es Gas or electric? g as Fireplace? N o Wood burning stove? N o Do you vacuum the home? N o Air purification systems? N o Pillow and mattress dust-proof encasings? Y es Do you use a humidifier? N o Do you own any pets? N o Fabric softeners used? Y es Plants in the home? N o Is there carpeting in your bedroom? Y es Age of carpet? 2 0 Do you have yilg-od-gequ carpeting? Y es What is the age of your carpeting? 2 0 What is the age of your mattress (years)? 1 0 What material(s) are used to manufacture your bedding and pillow? n atural fiber (e.g. cotton) What is the age of your pillow (years)? 1 0 What material are your bedding items made of? n atural fiber (e.g. cotton) Do you sleep with quilts or blankets or a duvet? Y es What material? n atural fiber (e.g. cotton) * Medications: T akingMetoprolol Succinate ER 50 mg tablet, extended release 1 tab(s) orally once a day amLODIPine 10 mg tablet 1 tab(s) orally once a day hydroCHLOROthiazide 25 mg tablet 1 tab(s) orally once a day tamsulosin 0.4 mg capsule 1 cap(s) orally once a day Lipitor 20 mg tablet 1 tab(s) orally once a day diclofenac sodium 75 mg delayed release tablet 1 tab(s) orally 2 times a day Cetirizine 10 mg tablet 1 tab(s) orally BID EPINEPHrine 0.3 mg kit as directed intramuscularly once Taking Metoprolol Succinate ER 50 mg tablet, extended release 1 tab(s) orally once a day Taking amLODIPine 10 mg tablet 1 tab(s) orally once a day Taking hydroCHLOROthiazide 25 mg tablet 1 tab(s) orally once a day Taking tamsulosin 0.4 mg capsule 1 cap(s) orally once a day Taking Lipitor 20 mg tablet 1 tab(s) orally once a day Taking diclofenac sodium 75 mg delayed release tablet 1 tab(s) orally 2 times a day Taking Cetirizine 10 mg tablet 1 tab(s) orally BID Taking EPINEPHrine 0.3 mg kit as directed intramuscularly once Not-Taking/PRNpredniSONE 20 mg tablet 2 tab(s) orally once a day famotidine 20 mg tablet 1 tab(s) orally once a day aspirin 81 mg tablet 1 tab(s) orally once a day montelukast 10 mg tablet 1 tab(s) orally once a day Medication List reviewed and reconciled with the patientNot-Taking/PRN predniSONE 20 mg tablet 2 tab(s) orally once a day Not-Taking/PRN famotidine 20 mg tablet 1 tab(s) orally once a day Not-Taking/PRN aspirin 81 mg tablet 1 tab(s) orally once a day Not- Taking/PRN montelukast 10 mg tablet 1 tab(s) orally once a day Medication List reviewed and reconciled with the patient * Allergies: p enicillin G potassium: rashpenicillin V potassium: rashDilaudid: other reactionno[Allergies Verified] Objective: * Vitals: B P:166/92mm Hg, HR:73/min, RR:18/min, Pulse Oximetry:97%, Ht: 66 in, Wt: 299 lbs, BMI:48.25Index. * Examination: G eneral examination: General appearance: p leasant, well-developed, well-nourished. HEENT: p upils equal, round, and reactive to light and accommodation, conjunctiva are injected bilaterally, no tenderness to palpation of the sinuses, TM's without evidence of acute infection, turbinates 2+ swollen and pale inferiorly bilaterally, clear rhinorrhea is present, no polyps noted, no septal perforation, posterior oropharynx is erythematous and cobblestoning is present, erythema on pharyngeal wall, no exudates, no tongue swelling, and uvula is midline. Oral cavity: n ormal, no lesions. Neck, thyroid : s upple, non-tender, no anterior cervical lymphadenopathy. Breasts : n ot performed. Heart: R RR, S1-S2, no murmurs, no rubs, no gallops. Lungs: c lear to auscultation and percussion in all lung serrano, no wheezes or crackles. Abdomen: s oft, NT/ND, normal active bowel sounds. Neurologic exam: u nremarkable. Skin: n ormal, no rash, dermatographism, urticaria, angioedema. Peripheral pulses: n ormal (2+) bilaterally. Back: n ormal. Extremities: n ormal ROM, no clubbing, no cyanosis, no edema. Genitalia: n ot performed. Influenza Vaccine not administered Assessment: * Assessment: 1. A ngioneurotic edema, initial encounter - T78.3XXA (Primary) 2 . A dverse effect of xcxfyynrylx-gcwyiqeshd-spodei inhibitors, initial encounter - T46.4X5A 3 . E ssential (primary) hypertension - I10 4 . A llergy status to penicillin - Z88.0 Plan: * Treatment: 2. A dverse effect of xgpvzqlaije-jpbzefpkbq-osfxat inhibitors, initial encounter Notes: Continue strict avoidance of drug class 3. E ssential (primary) hypertension Continue Metoprolol Succinate ER tablet, extended release, 50 mg, 1 tab(s), orally, once a day;?Continue amLODIPine tablet, 10 mg, 1 tab(s), orally, once a day; C ontinue hydroCHLOROthiazide tablet, 25 mg, 1 tab(s), orally, once a day. Notes: Elevated blood pressure in office today without signs or symptoms of hypertensive crisis. Patient has been monitoring BP at home, reporting 130s/70s in the evenings. Continue serial checks and follow-up per PCP. -If meds are needed, consider avoiding beta-blockers due to difficulty in treating systemic reactions in patients taking beta blockers. -Slated for cardiology evaluation in 01/2024 given abnormalities seen on Holter monitor. 4. A llergy status to penicillin Notes: Patient reported hives after PCN ingestions. Consider PCN testing in future * Procedure Codes: 9 8960 SELF-MGMT EDUC & TRAIN, 1 [id number] DOC MEDS VERIFIED W/PT OR [id number] FLU IMM NO ORD/ADMIN DOC SAMUEL * Preventive Medicine: Counseling: D iet a s tolerated. E xercise C ontinue activity as usual. M edication instruction: W atc for side effects of prescribed medications, Reviewed boxed warning on prescribed medication, Singulair (montelukast: serious neuropsychiatric events have been reported in patients; monitor for neuropsychiatric symptoms.? E ducation: G ENERAL EDUCATION: Our staff spent an additional 15 minutes in direct contact with the patient educating them on their current diagnoses and proper treatment and prevention of symptoms and the proper use of medications, MEDICATION EDUCATION:, Singulair (montelukast: serious neuropsychiatric events have been reported in patients; monitor for neuropsychiatric symptoms. E ducation 2: I njectable epinephrine education and instruction w/ discussion of signs and symptoms of anaphylaxis and reasons to seek urgent or emergent care, Able to return demonstration of self-injectable epinephrine. P atient education material sent to portal? Y es C are goal follow up plan BMI management provided Y es Above Normal BMI Follow-up D ietary management education, guidance, and counseling B P Management: FIRST HYPERTENSIVE BP READING FOLLOW-UP PLAN: F ollow-up 1 month REFERRAL TO ALTERNATIVE / PRIMARY CARE PROVIDER: R eferral to general practitioner * Follow Up: 3 Months (Reason: Evaluation and Management) * Billing Information: * Visit Code: 26872 Office Visit, Est Pt., Level 4. Modifiers: 25 * Procedure Codes: 64332 SELF-MGMT EDUC & TRAIN, 1 PT. G8427 DOC MEDS VERIFIED W/PT OR RE. G8483 FLU IMM NO ORD/ADMIN DOC SAMUEL. Images * Eyebrow/Forehead Swelling 12/12/23 * SMAN/WOMAN Electronically co-signed by Gautam Bowman MD, FAAAAI on 12/20/2023 at 03:24 PM LOFTSMAN/WOMAN Sign off status: Completed true * Provider: ALEX Mohan Date: 0 12/17/2023 Generated for Juani ng/Clovis/eTransmitting on: 0 12/14/2024 12:22 AM LOFTSMAN/WOMAN History and Physical Notes * HPI (History of Present Illness) Category Sub-Category Detail Notes Category Not es *Introduction I had the pleasure o f seeing Neymar De La Garza, a 67 year old male with a history of hypertension and obesity here today in referral with Dr. Royce Elizondo for interval evaluation and management. He is alone for today's visit. He has been doing well since last visit with no interval swelling episodes noted until 12/12/23 when he woke up with forehead swelling above left eye and lower lip swelling on 12/13/23. Benadryl taken both instances with syptoms resolution within 2 hours. He denies all other symptoms. Denies itching, pain. No change in medications. He continues on Zyrtec and Pepcid BID, Singulair PM. Prior laboratory workup essentially normal. He continues to carry AIE at all times. He was scheduled for back procedure this month, but PCP was concerned given he has had poor response to anesthesia in past. Recent Holter monitor evaluation showed PVCs and atrial tachycardia. He is slated for cardiology appointment at [facility] in 01/2024. Back procedure is on hold at this time. He went to part-time at beginning of 2023. Historically, Neymar reported an episode of lower lip swelling that occurred approximately 10PM 08/05/23. He presented to [facility] where he was given IV Benadryl and steroids with resolution in swelling within 4-5 hours. At that time, he was taking lisinopril and it was discontinued. One week later around 8AM, tongue swelling began and his throat felt restricted. He presented to ER and was given IV Benadryl and fluids with reduction in swelling. He was discharged with PO steroids, to be completed tomorrow. Aspirin was discontinued at that time. Dr. Elizondo encouraged him to avoid NSAIDs as he was taking Aleve for chronic back pain. He was also prescribed AIE and carries at all times. He denies rash, hives, no changes in diet. He denies family history of swelling, but does report father developed a peanut allergy at age 60. He denies frequent infections, inhaler usage, PO steroids for lower airways. Today, he reports no fevers, chills, night sweats or other constitutional symptoms Examination Category Sub-Category Detail Notes Category Not es General examination HEENT: pupils equal , round, and reactive to light and accommodation, conjunctiva are injected bilaterally, no tenderness to palpation of the sinuses, TM's without evidence of acute infection, turbinates 2+ swollen and pale inferiorly bilaterally, clear rhinorrhea is present, no polyps noted, no septal perforation, posterior oropharynx is erythematous and cobblestoning is present, erythema on pharyngeal wall, no exudates, no tongue swelling, and uvula is midline Neck, thyroid : supple, non-tender, no anterior cervical lymphadenopathy Heart: RRR, S1-S2, no murmu rs, no rubs, no gallops Lungs: clear to auscultatio n and percussion in all lung serrano, no wheezes or crackles Abdomen: soft, NT/ND, normal active bowel sounds Extremities: normal ROM, no clubb ing, no cyanosis, no edema General appearance: pleasant, well-devel oped, well-nourished Skin: normal, no rash, addis matographism, urticaria, angioedema Neurologic exam: unremarkable Oral cavity: normal, no lesions Breasts : not performed Peripheral pulses: normal (2+) bilatera lly Back: normal Genitalia: not performed Influenza Vaccine not administered Reason:: Kira ent Reason Type of Patient Reason:: Procedure refused
--- OUTSIDE RECORDS SUMMARY | 2024-12-14 00:22 | XMS_ITS | Patient Health Summary ---
Author Organization [facility] Address [address] [place] [address] Care Team Providers Care Dehydrator Name Role Phone Unavailable Primary Care Provider Unavailabl e Note from [facility],non-owned Affiliates and Associated Physician Practices is amultiple site organization consisting of ambulatory clinics and hospital sitesin [place], [place], [place] and [place]. This disclosure is being madepursuant to the Care Everywhere program and may not contain all information available regarding this patient. Last updated 18.[facility] Allergies No known active allergies Medications * [...] the midline. Reading RadiologistTeresa ORDONEZ M.D. Releasing RadiologistTeresa ORDONEZ M.D. Released Date Time- 05/18/09 1355 Rose Grading Supervisor- AMD [facility]- JACIEL RODRÍGUEZ GREGORY J REF- BAILEY, GREGORY J [facility] Procedure Note Marc Ordonez - 05/18/2009 CT cervical spine with contrast, [...] the right and in the midline. Reading Luz ORDONEZ M.D. Releasing Luz ORDONEZ M.D. Released Date Time- 05/18/09 1355 Rose Grading Supervisor- AMD JACIEL CROWE GREGORY J REF- BAILEY, GREGORY J [facility] Jaciel Rodríguez MD CT ORDERABLES * FL FLUORO MYEOLOGRAM CERVICAL (05/18/2009 9:30 AM CDT) Anatomical Region Laterality Modality Spine Other 05/18/2009 9:30 AM CDT Narrative 05/18/2009 1:53 PM CDT Cervical myelogram DATE- 05/18/1009. INDICATION- Neck pain, numbness in the right fourth and fifth fingers. RadiologistTeresa Ordonez M.D. TECHNIQUE- After obtaining written, informed [...] ORDONEZ M.D. Released Date Time- 05/18/09 1353 Rose Grading Supervisor- AMD ADM- JACIEL RODRÍGUEZ GREGORY J [facility] Procedure Note Marc Ordonez - 05/18/2009 Cervical myelogram DATE- 05/18/1009. INDICATION- Neck pain, numbness in the right fourth and fifth fingers. Radiologist- Marc Ordonez M.D. TECHNIQUE- After obtaining written, informed [...] report for findings. IMPRESSION- Cervical myelogram. Reading Radiologist- MARC ORDONEZ M.D. Releasing RadiologistTeresa ORDONEZ M.D. Released Date Time- 05/18/09 1353 Rose Grading Supervisor- AMD JACIEL CROWE GREGORY J REF- BAILEY, GREGORY J [facility]- [facility] Jaciel Rodríguez MD FLUOROSCOPY ORDERABL ES
--- OUTSIDE RECORDS SUMMARY | 2024-12-14 00:22 | XMS_ITS | Referral Summary ---
Author Organization [facility] Address [address] [place] [address] Care Team Providers Care Health Benefits Specialist Name Role Phone Unavailable Primary Care Provider Unavailabl e Source Comments [facility],non-owned Affiliates and Associated Physician Practices is amultiple site organization consisting of ambulatory clinics and hospital sitesin [place], [place], [place] and [place]. This disclosure is being madepursuant to the Care Everywhere program and may not contain all information available regarding this patient. Last updated 18.[facility] Allergies No known active allergies Medications * [...]
--- OUTSIDE RECORDS SUMMARY | 2024-12-14 00:23 | XMS_ITS ---
Author Organization [facility] Address [address] [place] [address] Care Team Providers Care Information Technology Manager Name Role Phone Royce Elizondo MD Primary Care Provider Unavaila Tamika Lei Unavailable [phone] REASON FOR VISIT ARC follow-up Encounters Encounter Location Date Provider Diagnosis [facility] [address] [place] [address] 03/18/2024 Tamika Michelle Plan Of Treatment No Information Progress Notes * Neymar DE LA GARZA EDOB:1955 (69 yo M)Acc No.[id number]:03/18/2024 Progress Notes Patient: Neymar CALHOUN Provider: ALEX Mohan :1955 A ge:68 Y S ex:Male Date:03/18/2024 Address:[address] [place] [address], [facility] Pcp:Royce Elizondo MD Subjective: * Chief Complaints: * 1 . ARC follow-up. * Medical History: Objective: * Vitals: Assessment: Plan: * Treatment: * Billing Information: * Visit Code: * Procedure Codes: * Electronic signature of ALEX Khalil on 12/14/2024 at 12:22 AM ENVIRONMENTAL HEALTH TECHNOLOGIST Sign off status: Pending * Provider: FARIHA MohanP-BC Date: 0 03/18/2024 Generated for Cullen jacobo/[place]/Radha on: 0 12/14/2024 12:22 AM ENVIRONMENTAL HEALTH TECHNOLOGIST
--- OUTSIDE RECORDS SUMMARY | 2024-12-14 00:23 | XMS_ITS ---
Author Organization [facility] Address [address] [place] [address] Care Team Providers Care Various Exceptionalities Teacher Name Role Phone Royce Elizondo MD Primary Care Provider Unavaila Tamika Lei Unavailable [phone] ZZ-Migration, Provider Unavailable Unavailab le Allergies Allergen (clinical drug ingredient) Drug/Non Drug Allergy documented on EMR Reaction Allergy Type Onset Date Status hydromorphone Dilaudid other reaction Drug Allergy Active penicillin G Penicillin G Potassium rash Drug Allergy Active penicillin V Penicillin V Potassium rash Drug Allergy Active REASON FOR VISIT [facility] Conversion Encounter Medications Medication SIG (Take, Route, Frequency, Duration) Notes Start Date End Date Status predniSONE 20 MG 2 tab(s) orally once a day Not-Taking Aspirin 81 MG 1 TAB(S) ORALLY ONCE A DAY for 30 DAY(S) *Please review and pick correct strength[facility]ul [facility]. If intended option is not shown, discontinue and re-order from Quick Search* Not-Taking Tamsulosin HCl 0.4 MG 1 cap(s) orally once a day for 30 day(s) Active Famotidine 20 MG 1 tab(s) orally once a day Not-Taking Lipitor 20 MG 1 tab(s) orally once a day for 30 day(s) Active Cetirizine HCl 10 MG 1 tab(s) orally BID for 30 days Active Pepcid 20 MG 1 tab(s) orally 2 times a day for 30 days Active hydroCHLOROthiazide 25 MG 1 tab(s) orally once a day Active Montelukast Sodium 10 MG 1 tab(s) orally once a day for 90 days Active EPINEPHrine 0.3 MG DIRECTED INTRAMUSCULARLY ONCE *Please review and pick correct strength-formul ation from [place] options. If intended option is not shown, discontinue and re-order from Quick Search* Active Metoprolol Succinate ER 50 MG 1 tab(s) orally once a day Active amLODIPine Besylate 10 MG 1 tab(s) orally once a day Active Diclofenac Sodium 75 MG 1 tab(s) orally 2 times a day Active Encounters Encounter Location Date Provider Diagnosis [facility] - [address] [address] 04/17/2024 Provider Gilberto Angioneurotic edema, initial encounter T78.3XXA and Essential (primary) hypertension I10 Assessments Encounter Date Diagnosis (ICD Code) Assessment Notes Treatment Notes Treatment Clinical Notes Section Notes 04/17/2024 Angioneurotic edema, initial encounter (ICD-10 - T78.3XXA) 04/17/2024 Essential (primary) hypertension (ICD-10 - I10) Plan Of Treatment Medication Medication Name Sig Start Date Stop Date Notes Cetirizine HCl 10 MG 1 tab(s) orally BID for 30 days Pepcid 20 MG 1 tab(s) orally 2 times a day for 30 days hydroCHLOROthiazide 25 MG 1 tab(s) orall y once a day Montelukast Sodium 10 MG 1 tab(s) orally once a day for 90 days EPINEPHrine 0.3 MG DIRECTED INTRAMUSCULARLY ONCE *Please review and pick correct strength-formulat ion from [place] options. If intended option is not shown, discontinue and re-order from Quick Search* Metoprolol Succinate ER 50 MG 1 tab(s) orally once a day amLODIPine Besylate 10 MG 1 tab(s) orall y once a day Progress Notes * Neymar DE LA GARZA EDOB:1955 (69 yo M)Acc No.[id number]:04/17/2024 Patient: [place] MARJORIE Neymar Perlita Provider: Ayad Brower :1955 A ge:68 Y S ex:Male Date:04/17/2024 Address:[address] [place] [address] [facility] Pcp:Royce Elizondo MD Subjective: * Chief Complaints: * [address] [facility] En[facility]. * Medical History: * Medications: [...] *Please review and pick correct strength-formulation from [facility] options. If intended option is not shown, [...] * Electronic signature of Jasmyn RAMOS-Migration on 12/14/2024 at 12:23 AM VENIPUNCTURIST Sign off status: Pending * Provider: Ayad bhagat Migration Date: 0 04/17/2024 Generated for Cullen jacobo/[place]/Hiitting on: 0 12/14/2024 12:23 AM VENIPUNCTURIST
--- OUTSIDE RECORDS SUMMARY | 2024-12-14 00:23 | XMS_ITS | Clinical Summary ---
Author Organization [facility] Address [address] [place] [address] Care Team Providers Care Battery Charger Conveyor Line Name Role Phone Unavailable Primary Care Provider Unavailabl e Source Comments [facility],non-owned Affiliates and Associated Physician Practices is amultiple site organization consisting of ambulatory clinics and hospital sitesin [place], [place], [place] and [place]. This disclosure is being madepursuant to the Care Everywhere program and may not contain all information available regarding this patient. Last updated 18.[facility] Allergies No known active allergies Medications * [...]
--- OUTSIDE RECORDS SUMMARY | 2024-12-14 00:23 | XMS_ITS | Patient Health Record ---
Author Organization [facility] Address [address] [place] [address] Care Team Providers Care Community Education Coordinator Name Role Phone Royce Elizondo MD Primary Care Provider Unavaila Tamika Lei Unavailable [phone] ZZ-Migration, Provider Unavailable Unavailab le Allergies Allergen (clinical drug ingredient) Drug/Non Drug Allergy documented on EMR Reaction Allergy Type Onset Date Status hydromorphone Dilaudid other reaction Drug Allergy Active penicillin G Penicillin G Potassium rash Drug Allergy Active penicillin V Penicillin V Potassium rash Drug Allergy Active Reason For Referral No Information Medications Medication SIG (Take, Route, Frequency, Duration) Notes Start Date End Date Status FAMOTIDINE 20 mg 1 tab(s) orally once a day Not-Taking Metoprolol Succinate ER 50 MG 1 tab(s) orally once a day Active PREDNISONE 20 mg 2 tab(s) orally once a day Not-Taking TAMSULOSIN 0.4 mg 1 cap(s) orally once a day for 30 day(s) Active ASPIRIN 81 mg 1 tab(s) orally once a day for 30 day(s) Not-Taking Cetirizine HCl 10 MG 1 tab(s) orally BID for 30 days Active Pepcid 20 MG 1 tab(s) orally 2 times a day for 30 days Active amLODIPine Besylate 10 MG 1 tab(s) orally once a day Active hydroCHLOROthiazide 25 MG 1 tab(s) orally once a day Active Aspirin 81 MG 1 TAB(S) ORALLY ONCE A DAY for 30 DAY(S) *Please review and pick correct strength-formul ation from [place] options. If intended option is not shown, discontinue and re-order from Quick Search* Not-Taking Tamsulosin HCl 0.4 MG 1 cap(s) orally once a day for 30 day(s) Active Famotidine 20 MG 1 tab(s) orally once a day Not-Taking DICLOFENAC sodium 75 mg 1 tab(s) orally 2 times a day Active LIPITOR 20 mg 1 tab(s) orally once a day for 30 day(s) Active Lipitor 20 MG 1 tab(s) orally once a day for 30 day(s) Active Diclofenac Sodium 75 MG 1 tab(s) orally 2 times a day Active predniSONE 20 MG 2 tab(s) orally once a day Not-Taking MONTELUKAST 10 mg 1 tab(s) orally once a day for 90 days Active EPINEPHRINE 0.3 mg as directed intramuscularly once Active EPINEPHrine 0.3 MG DIRECTED INTRAMUSCULARLY ONCE *Please review and pick correct strength-formul ation from [employer] options. If intended option is not shown, discontinue and re-order from Quick Search* Active CETIRIZINE 10 mg 1 tab(s) orally BID for 30 days Active PEPCID 20 mg 1 tab(s) orally 2 times a day for 30 days Active HYDROCHLOROTHIAZIDE 25 mg 1 tab(s) orally once a day Active METOPROLOL SUCCINATE ER 50 mg 1 tab(s) orally once a day Active AMLODIPINE 10 mg 1 tab(s) orally once a day Active Montelukast Sodium 10 MG 1 tab(s) orally once a day for 90 days Active Social History Tobacco Use: Social History Observation Description Date Details (start date - stop date) Never Smoker NA - NA Smoking Smart Form: Question Answer Notes Are you a: never smoker Problems Problem Type SNOMED Code ICD Code Onset Dates Problem Status W/U Status Risk Notes Problem Obesity (031029607) Obesity, unspecified (E66.9) Active confirmed Problem Hyperlipidemia (65643813) Hyperlipidemia, unspecified (E78.5) Active confirmed Problem Essential hypertension (58081577) Essential (primary) hypertension (I10) Active confirmed Problem Angioneurotic edema (07136593) Angioneurotic edema, initial encounter (T78.3XXA) Active confirmed Problem Allergy to penicillin (60083927) Allergy status to penicillin (Z88.0) Active confirmed Problem Angiotensin-conver ting-enzyme inhibitor adverse reaction (269199448) Adverse effect of angiotensin-conv erting-enzyme inhibitors, initial encounter (T46.4X5A) Active confirmed Vital Signs Respiratory Rate 18 /min 12/17/2023 Oximetry 97 % 12/17/2023 Blood pressure diastolic 92 mm Hg 12/17/2023 Height 66 in 12/17/2023 Blood pressure systolic 166 mm Hg 12/17/2023 Weight 299 lbs 12/17/2023 BMI 48.25 kg/m2 12/17/2023 Encounters Encounter Location Date Provider Diagnosis [address] [address] 04/17/2024 Provider ZZ-eLonarda Angioneurotic edema, initial encounter T78.3XXA and Essential (primary) hypertension I10 [facility] [address] [place] [address] 12/17/2023 Tamika Michelle Angioneurotic edema, initial encounter [...] lip swelling occurred on 08/05/23. Treated at [facility] with IV Benadryl and steroids with [...] symptoms within 2 hours. -Records requested from [facility], still pending. -Continue to carry AIE [...] T46.4X5A) Continue strict avoidance of drug class 04/17/2024 Angioneurotic edema, initial encounter (ICD-10 - T78.3XXA) 04/17/2024 Essential (primary) hypertension (ICD-10 - I10) 12/17/2023 Essential (primary) hypertension (ICD-10 - I10) [...] in future 12/17/2023 Other Plan Of Treatment No Information Insurance Providers Payer Name Payer Address Payer Phone Subscriber Number Group Number Insured Name Patient Relationship to Insured Coverage Start Date Coverage End Date [employer] [address] [address] [place] [address] [id number] Neymar De La Garza Self - patient is the insured Medical (General) History Medical History History ICD Code Essential (primary) hypertension I10 Hyperlipidemia, unspecified E78.5 Obesity, unspecified E66.9 Surgical History Surgery Date(Month/Year) bowel resuction 2011 hernia 2015 Hospitalization History Reason Date(Month/Year) see surgery hx
--- NOTE | 2024-12-14 05:26 | P.HP_ITS ---
History of Present Illness History of Present Illness Consent: Risks, benefits, and alternatives have been discussed and questions answered. Patient agrees to proceed with procedure. 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 Review of Systems Review of Systems: Patient denies any new infectious, allergic, cardiopulmonary, neurologic or constitutional symptoms or changes in activity tolerance or exercise capacity including new or progressive SOB/KHANNA, peripheral edema, productive cough, dysuria, nausea/vomiting, diarrhea, weight change, fevers/chills/night sweats, new or progressive neurologic deficit, cognitive or mood changes since last seen, except as documented in the HPI. All systems reviewed & are unremarkable except as noted in HPI and below PMFSH Past Medical History Medical History Angioedema Chronic low back pain Chronic neck pain Complete tear of left rotator cuff Hyperlipidemia Hypertension IFG (impaired fasting glucose) Obesity due to excess calories BRIANNA (obstructive sleep apnea) UTI (urinary tract infection) Oct 2023 Surgical History Surgical History History of bowel resection (~06/18/12) History of hernia repair (~12/10/14) Family History Family History Unknown Cancer Heart attack Hypertension Arthritis Father Malignant neoplasm of prostate Mother Cancer of unknown origin Social History Social History Social History: Smoking status: Never smoker Second hand tobacco smoke exposure: No Alcohol intake: never Drinks per week: 1 Alcohol use details: beer Substance use: never Substance use type: does not use Do You Feel Safe in your Home?: Yes Lack of Transportation: No Lack of Food: Never True Current Housing: I Have Housing Concerned About Future Housing: No Difficulty Paying Gas/Electric Bills: No Difficulty Paying for Meds: No Currently Unemployed: No Education: High School Diploma/GED Difficulty w/ Childcare or Family Care: No Living arrangements: with family Additional living arrangements comments: Occupation/Education: occupation Gender identity (if verbalized by the patient): Male Sexual Orientation (if Verbalized by the Patient): Straight or Heterosexual Spiritual care concerns: No Meds Home Medications and Allergies Home Medications ?Medication ?Instructions ?Recorded ?Confirmed ?Type mineral oil (Mineral Oil Heavy 15 ml PO BID 12/15/20 12/01/24 History oral) epinephrine 0.3 mg/0.3 mL 0.3 mg (0.3 mL) IM ONCE #2 ea 08/14/23 12/01/24 Rx injection, auto-injector (EpiPen 2-Mendez) diclofenac sodium 75 mg 75 mg PO BID #180 tabs 07/26/24 12/01/24 Rx tablet,delayed release tamsulosin 0.4 mg capsule 0.4 mg PO DAILY #90 caps 09/06/24 12/01/24 Rx cetirizine 10 mg tablet (Zyrtec) 10 mg PO DAILY PRN allergy symptoms 10/01/24 12/01/24 History diphenhydramine HCl 25 mg capsule 25 mg PO HS sleep 12/01/24 12/01/24 History (ZzzQuil) amlodipine 10 mg tablet 10 mg PO DAILY #90 tabs 12/13/24 Rx atorvastatin 20 mg tablet (Lipitor) 20 mg PO DAILY #90 tabs 12/13/24 Rx metoprolol succinate 100 mg 100 mg PO DAILY #90 tabs 12/13/24 Rx tablet,extended release 24 hr triamterene 37.5 1 tablet PO QAM #90 tabs 12/13/24 Rx mg-hydrochlorothiazide 25 mg tablet Allergies Allergy/AdvReac Type Severity Reaction Status Date / Time MARJORIE Inhibitors Allergy Severe angioedema Verified 12/01/24 15:01 hydromorphone Allergy Intermediate Hypotension Verified 12/01/24 15:01 Penicillins Allergy Intermediate Hives Verified 12/01/24 15:01 Exam Narrative: The patient's physical exam is essentially unchanged from prior examination on 09/06/2024. Specifically, patient demonstrates normal lung capacity, tidal volume and respiratory rate without wheezes, crackles, rales or rubs. Heart rat e and rhythm are regular without murmurs, gallops or rubs. No JVD. Pulses 2+ globally without increasing peripheral edema. AAOx3 with no evidence of confusion, intoxication or altered mental state, NC/AT without acute distress or altered consciousness. Speech, cognition, mood, insight and judgment at baseline and within normal limits. Assessment and Plan Assessment and plan (1) Vertebrogenic low back pain: Code(s): M54.51 - Vertebrogenic low back pain Status: Acute Assessment and Plan: proceed as planned with Intracept procedure at L3, L4, L5, possible L2 under fluoroscopic guidance with the addition of L2 depending on intraoperative Fluoroscopic assessment given evidence of Modic endplate change at this level. (2) Dorsalgia: Code(s): M54.9 - Dorsalgia, unspecified Status: Acute (3) Chronic low back pain: Code(s): M54.5 - Low back pain; G89.29 - Other chronic pain Status: Acute
--- NOTE | 2024-12-14 05:37 | WPDHPUPDATE1 ---
History and Physical Update Update Date/Time: 12/14/24 05:37 History and Physical has been reviewed, including an updated exam of the patient. There are NO changes in the patient's condition. Risks, benefits, and alternatives have been discussed and questions answered. Patient agrees to proceed with procedure.
--- NOTE | 2024-12-14 05:39 | W.PM.PROC2 ---
Procedure Note - Detailed Date of Procedure 12/14/24 Pre-op Diagnosis vertebrogenic back pain, chronic pain Post-op Diagnosis Same Procedure Performed Percutaneous transpedicular intraosseous basivertebral nerve thermal radiofrequency ablation (Intracept procedure) at L2, L3, L4, L5 under fluoroscopic guidance. Surgeon Chintan Jennings MD Welfare Case Worker None. Anesthesia General (GETA] in the [prone] position with infiltration of local anesthetic. 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 They are significantly limited in their daily and/or work-related activities as a result, including sitting, standing, lifting/carrying and sleeping, with failure to respond to and/or tolerate extensive efforts at more conservative management (i.e. oral and topical analgesics including NSAIDs, acetaminophen and opioids, Physical Therapy and modalities, time/rest, interventional procedures/corticosteroid injections) for greater than 6 months prior to today's procedure establishing medical necessity for this well-studied and FDA-approved pain-relieving procedure. INFORMED CONSENT: Procedure was discussed in detail with the patient at a previous visit and at the time of surgery. During this discussion, the risks, benefits, and alternatives to the procedure, including doing nothing, were thoroughly described to the patient, who expressed explicit understanding and consent to proceed. Specific risks discussed with the patient included, but were not limited to the risk of serious local or systemic infection, skin burn/scarring, major or minor bleeding/bruising, allergic reaction to medications or materials, inadvertent lung or other organ injury, new or worsening spinal fracture, inadvertent thermal or mechanical nerve or spinal cord injury resulting in increased pain, weakness, numbness or loss of bowel or bladder control, the need for repeat or additional surgery, inadvertent dural puncture resulting in acute or chronic CSF leak and post-dural puncture headache, failure to treat pain, and risks associated with general anesthesia in the prone position including eye, dental, joint, nerve, spine or soft tissue injury/pain related to positioning, heart attack, respiratory failure, aspiration, pneumonia, DVT/PE or thrombosis, hemorrhagic or ischemic stroke, hypoxia, hypo- or hypertension, seizure, coma and . Patient understands these risks and agrees that the opportunity for benefit outweighs the potential risk of harm. Procedure specific informed consent form was read, reviewed, signed by the patient and surgeon and witnessed in the pre-operative area. All pertinent questions were asked and answered to the patient's satisfaction. Surgical site was pre-treated with chlorhexidine wipes. All materials required for the procedure were available and site and side of procedure was marked prior to procedure start. Appropriate timeout was conducted by all participants in the OR (patient's ID, procedure to be performed, procedure site and side, allergies and appropriate medications including pre-operative antibiotics were verified) prior to incision. PROCEDURE IN DETAIL: After full informed consent and adequate IV access was obtained without difficulty; the patient was escorted to the procedural suite. ASA standard monitors were applied and utilized throughout the case. Prophylactic antibiotics were administered prior to procedure start. GETA was initiated without difficulty or event. Eyes were protected. Patient was converted to the prone position in optimal flexion using pillows under the abdomen, hips and ankles. Pressure points were padded, cervical spine and joints were placed in neutral position. Eyes, breasts and genitals were evaluated and protected as appropriate. The thoracolumbar spine to the sacrum was prepared in the usual manner using alcohol scrub followed by broad application of ChloraPrep, and allowed to dry completely for over 3 minutes. Surgical site and C-arm was sterilely draped in the typical fashion. Aseptic technique and strict fluoroscopic guidance was utilized throughout. Fluoroscope was moved into position to visualize the vertebral bodies of interest in the AP and lateral plane, obtaining true linear projections of the endplates at each level, and was rotated in the ipsilateral oblique view approximately 35 degrees from true AP to visualize the vertebrae with respective ipsilateral facet joints visualized bisecting the superior disk space at the midpoint of the vertebral body. The superolateral border of the pedicle of each level treated was identified. After adequate general anesthesia was confirmed, the skin entry point was located and infiltrated with an adequate amount of a 1:1 admixture of 0.5% preservative free bupivacaine and 2.0% preservative-free lidocaine using a 27 gauge 1.5-inch hypodermic needle after negative aspiration for blood or bodily fluid. Appropriate introducer cannula trajectory was identified in the AP, oblique and lateral views, and local anesthesia was extended to periosteum in a similar fashion at each level treated using a 3.5 inch, 22-gauge Quincke spinal needle. A stab skin decision was made with a #11 scalpel blade and an 8-gauge introducer cannula with beveled tip was then introduced through the skin, subcutaneous tissue and paraspinal muscle until contact was made with the bony surface of the pedicle at the target level. Appropriate position was confirmed in both the AP and lateral views. Using a 24-ounce surgical mallet, the trocar was advanced through the right pedicle to the posterior aspect of the vertebral body using a combination of AP and lateral views to ensure appropriate travel through the pedicle without breach of its medial wall or entry into the epidural/neuroforaminal space. Once the trocar had entered the posterior aspect of the L5 vertebral body, the trocar was removed from the cannula and the curved cannula assembly was inserted followed by replacement of the original straight stylette with the Nitinol J ? stylette without difficulty. The wingnut on the device was rotated counterclockwise to its endpoint permitting excursion of the J ? stylette. The curved cannula assembly was then advanced under intermittent fluoroscopic guidance, using the surgical mallet, in 1 to 2 mm increments with observed travel anteriorly and medially through the vertebral body in both the AP and lateral views. When necessary, the J-stylette was intermittently removed and replaced with the straight stylette during advancement to reach the basivertebral nerve target near the center point of the vertebral body. Target was reached when the tip of the stylette was noted to be a minimum of 1 cm anterior to the posterior wall and approximately 30 to 50% of the posterior to anterior diameter of the targeted vertebral body and at the midpoint of the distance between the superior and inferior endplates, with tip of the stylette crossing midline as represented by the spinous process in the carefully aligned AP projection. J-stylette was then removed and the bipolar radiofrequency probe was connected to the generator and inserted into the introducer cannula until the proximal and distal electrodes straddled the midpoint of the vertebral body. The wingnut was then rotated clockwise to retract the PEEK sleeve and expose the proximal electrode on the radiofrequency probe. The basivertebral nerve was then ablated through activation of the probe and generator. At each level treated, ablation was performed at 85 degrees centigrade for 7 minutes using [facility]'s RFG standard intraosseous ablation algorithm while simultaneously monitoring for any sign of motor or sensory nerve stimulation. While ablative lesioning was progressing to completion at the initial level, the fluoroscope was adjusted to successively visualize the target of entry at the superolateral aspect of the pedicle at each additional level treated, ( L2, L3, L4), with each vertebral body subsequently and sequentially accessed and target nerve ablated in a similar manner modified only to accommodate for specific level, location and anatomical variation, alternating the site and side of entry to facilitate cannula placement. This was achieved in all cases without difficulty. Location of each entry point, final cannula and probe position was documented by fluoroscopy in the AP and lateral views with respective images recorded in the patient's chart. In all cases, once intraosseous access was obtained, needle tip remained intraosseous without violation of the pedicular wall, vertebral wall, neuroforamen and/or spinal canal. Once all ablations were complete, instruments were removed from the vertebral bodies without difficulty under direct visualization and fluoroscopic guidance. Pressure was held at each entry site until hemostasis was confirmed. Skin was cleaned with alcohol -soaked gauze and dried with a sterile towel. Surgical wounds were then closed with mastisol and Steri-Strips placed in a crisscrossing fashion and covered with a sterile Telfa and Tegaderm dressing. The patient was returned to the supine position and anesthesia was reversed without difficulty or event. The patient tolerated the procedure well with no evidence of complication. Patient was transported to the recovery room where they were monitored for an appropriate period of time prior to discharge. During this time, the patient demonstrated no evidence of new neurologic symptom or injury, uncontrolled pain, postsurgical or post anesthetic complication. The patient was eventually discharged with both written and verbal instructions for appropriate wound care and activity restriction and with instructions to contact the office or report directly to the emergency department if no immediate response or if after hours with any signs of urgent or emergent complication including but not limited to excessive discharge or bleeding, new focal or diffuse neurologic weakness, numbness or other sensory change in the upper or lower extremities, severe headaches, intractable nausea/vomiting, fevers, chills, night sweats, increasing pain or loss of bowel or bladder control. Patient will otherwise follow-up in person at the clinic in 7 to 10 days for wound check and reevaluation. COMPLICATIONS: None. COMMENTS: None. IV FLUIDS: On Chart. EBL: 10 ml. DRAINS: None. PACKING: None. SPECIMEN: None. Pathology None sent Complications No immediate complications Condition Stable Disposition PACU [facility] Billing Surgery - Charge Forward: Surgery Billing
[2024-12-14] MEDS: LACTATED RINGERS 1,000 ML 30 ML IV CONT ×2 (06:30→09:16)
--- NOTE | 2024-12-14 06:57 | P.PNAN_ITS ---
Anes - Initial Pre Proc Eval Procedure: Operation Date: 12/14/24 07:30 Proposed Procedures p Intracept Procedure at L3, L4, Possible L2 Under Fluoroscopic Guidance - Chintan Jennings MD Date/Time: 12/14/24 06:57 Surgeon: Chintan Jennings MD Pre Op Diagnosis: vertebrogenic back pain, chronic pain Patient Data Age: 69 Gender: M Height: 1.7 m Weight: 136.5 kg Last Vital Signs Temp 37.3 C 12/14/24 06:13 Pulse 72 12/14/24 06:13 Resp 18 12/14/24 06:13 BP 185/88 H 12/14/24 06:13 Pulse Ox 97 12/14/24 06:13 O2 Del Method Room Air 12/14/24 06:13 Allergies Allergy/AdvReac Type Severity Reaction Status Date / Time MARJORIE Inhibitors Allergy Severe angioedema Verified 12/14/24 06:43 hydromorphone Allergy Intermediate Hypotension Verified 12/14/24 06:43 Penicillins Allergy Intermediate Hives Verified 12/14/24 06:43 Home Medications ?Medication ?Instructions ?Recorded ?Confirmed ?Type mineral oil (Mineral Oil Heavy 15 ml PO BID 12/15/20 12/14/24 History oral) epinephrine 0.3 mg/0.3 mL 0.3 mg (0.3 mL) IM ONCE #2 ea 08/14/23 12/01/24 Rx injection, auto-injector (EpiPen 2-Mendez) diclofenac sodium 75 mg 75 mg PO BID #180 tabs 07/26/24 12/14/24 Rx tablet,delayed release tamsulosin 0.4 mg capsule 0.4 mg PO DAILY #90 caps 09/06/24 12/14/24 Rx cetirizine 10 mg tablet (Zyrtec) 10 mg PO DAILY PRN allergy symptoms 10/01/24 12/14/24 History diphenhydramine HCl 25 mg capsule 25 mg PO HS sleep 12/01/24 12/01/24 History (ZzzQuil) amlodipine 10 mg tablet 10 mg PO DAILY #90 tabs 12/13/24 12/14/24 Rx atorvastatin 20 mg tablet (Lipitor) 20 mg PO DAILY #90 tabs 12/13/24 12/14/24 Rx metoprolol succinate 100 mg 100 mg PO DAILY #90 tabs 12/13/24 12/14/24 Rx tablet,extended release 24 hr triamterene 37.5 1 tablet PO QAM #90 tabs 12/13/24 12/14/24 Rx mg-hydrochlorothiazide 25 mg tablet Patient hx anesthesia problems: none Family hx anesthesia problems: none Results Review: All pre-operative results and documents have been reviewed as part of the pre- operative evaluation. [facility] Past Medical History Medical History UTI (urinary tract infection) Oct 2023 Angioedema Chronic low back pain IFG (impaired fasting glucose) Chronic neck pain BRIANNA (obstructive sleep apnea) Hyperlipidemia Obesity due to excess calories Complete tear of left rotator cuff Hypertension Surgical History Surgical History History of hernia repair (~12/10/14) History of bowel resection (~06/18/12) Family History Family History Unknown Cancer Heart attack Hypertension Arthritis Father Malignant neoplasm of prostate Mother Cancer of unknown origin Social History Social History Social History: Smoking status: Never smoker Second hand tobacco smoke exposure: No Alcohol intake: never Drinks per week: 1 Alcohol use details: beer Substance use: never Substance use type: does not use Do You Feel Safe in your Home?: Yes Lack of Transportation: No Lack of Food: Never True Current Housing: I Have Housing Concerned About Future Housing: No Difficulty Paying Gas/Electric Bills: No Difficulty Paying for Meds: No Currently Unemployed: No Education: High School Diploma/GED Difficulty w/ Childcare or Family Care: No Living arrangements: with family Additional living arrangements comments: Occupation/Education: occupation Gender identity (if verbalized by the patient): Male Sexual Orientation (if Verbalized by the Patient): Straight or Heterosexual Spiritual care concerns: No Anes - Eval Final PreProcedure Day of Procedure 12/14/24 06:57 Patient weight: morbidly obese Heart: regular rate and rhythm (sinus with multiple ectopic beats ) Lungs: clear to auscultation Airway: Mallampati scale class III Neurological: alert and oriented Last oral intake: >/= 8 hours ASA classification: III Emergent: no Anesthetic plan: proceed Anesthesia type and monitoring: general ETT and standard monitoring Results Review: All pre-operative results and documents have been reviewed as part of the pre- operative evaluation. Informed Consent: The patient's anesthetic plan and its attendant risks and benefits were discussed with the patient/family/POA. Questions were solicited and answers provided to the satisfaction of the patient/family/POA.
[2024-12-14] MEDS: ceFAZolin 3 GM/D5W 100 ML 100 ML IVPB (07:29)
[2024-12-14] MEDS: BUPIVACAINE/EPINEPHRINE 0.5% 10 ML VIAL 30 ML INFILTRATE (08:07)
[2024-12-14] MEDS: LIDOCAINE 1% LOCAL INJ 10 ML VIAL INFILTRATE (08:07)
== END 2024-12-14 10:55 | disposition home or self-care (01) ==
PROVIDERS: PCP Family Medicine; Visit Provider Anesthesiology Pain Medicine
PROC: (CPT 64628; principal; 2024-12-14 07:30)
DX: M54.51 Vertebrogenic low back pain (principal); G89.29 Other chronic pain; M54.50 Low back pain, unspecified; M54.2 Cervicalgia; E78.5 Hyperlipidemia, unspecified; I10 Essential (primary) hypertension; G47.33 Obstructive sleep apnea (adult) (pediatric); E66.01 Morbid (severe) obesity due to excess calories; Z68.42 Body mass index [BMI] 45.0-49.9, adult; Z79.899 Other long term (current) drug therapy; Z98.890 Other specified postprocedural states; Z80.42 Family history of malignant neoplasm of prostate; Z82.49 Family history of ischemic heart disease and other diseases of the circulatory system
CPT/HCPCS: 64628; 64629 ×2; 99199; C1889; J0690; J1100; J1171; J1596; J2003; J2004; J2250; J2405; J2704; J3010; J7120

== ENCOUNTER 2025-02-08 08:37 | Outpatient (CLI) | payer MEDICARE, SELFPAY ==
--- OUTSIDE RECORDS SUMMARY | 2025-02-08 08:48 | XMS_ITS ---
Author Organization [facility] Address [address] [place] [address] Care Team Providers Care Corporate Real Estate Specialist Name Role Phone Royce Elizondo MD Primary Care Provider Unavaila Tamika Lei Unavailable [phone] Allergies Allergen (clinical drug ingredient) Drug/Non Drug [...] Hg 024 Respiratory Rate 18 /min 12/17/2023 Height 66 in 12/17/2023 Weight 299 lbs 12/17/2023 BMI 48.25 kg/m2 12/17/2023 Oximetry 97 % 12/17/2023 Encounters Encounter Location Date Provider Diagnosis [facility] [address] [facility] [address] [place] [id number] 12/17/2023 Tamika Michelle Angioneurotic edema, initial encounter [...] lip swelling occurred on 08/05/23. Treated at [facility] with IV Benadryl and steroids with [...] symptoms within 2 hours. -Records requested from [facility], still pending. -Continue to carry AIE at all times. Proper demonstration and education previously provided. Instructed to use AIE if swelling reoccurs to assess for benefit. -In an abstract from the [place] presented at the 2018 [employer] meeting, out [...] lip swelling occurred on 08/05/23. Treated at [facility] with IV Benadryl and steroids with [...] symptoms within 2 hours. -Records requested from [facility], still pending. -Continue to carry AIE [...] 3 months for E&M Adverse effect of abxxyfapcds-immfqisyct-wmkwet inhibitors, initial encounter Continue strict avoidance of [...] Notes * GAVINDejonNeymar EDOB:1955 (68 yo M)Acc No.[id number]:12/17/2023 Progress Notes Patient: Neymar CALHOUN Provider: ALEX Mohan :1955 A ge:68 Y S ex:Male Date:12/17/2023 Address:[address] [place], [place] [id number] Pcp:Royce Elizondo MD Subjective: * Chief Complaints: [...] He is slated for cardiology appointment at [facility] i n 01/2024. Back procedure is on hold at this time. He went to part-time at beginning of 2023. H istorically, Neymar reported an episode of lower lip swelling that occurred approximately 10PM 08/05/23. He presented to [facility] where he was given IV Benadryl [...] of carpet? 2 0 Do you have sowm-xr-lyeg carpeting? Y es What is the age [...] n ot performed. Influenza Vaccine not administered R brenda: P atient Reason T ype of Patient Reason: P patrick refused Assessment: * Assessment: 1. A ngioneurotic edema, initial encounter - T78.3XXA (Primary) 2 . A dverse effect of xwlcrslapqr-mxnwwarssq-gjvgei inhibitors, initial encounter - T46.4X5A 3 . E ssential (primary) hypertension - I10 4 . A llergy status to penicillin - Z88.0 Plan: * Treatment: 2. A dverse effect of qlndgrfdtbr-biaaioeyke-mjwwjo inhibitors, initial encounter Notes: Continue strict avoidance [...] 9 8960 SELF-MGMT EDUC & TRAIN, 1 [id number] DOC MEDS VERIFIED W/PT OR [id number] FLU IMM NO ORD/ADMIN DOC SAMUEL * [...] TO ALTERNATIVE / PRIMARY CARE PROVIDER: R herial to general practitioner * Follow Up: 3 Months (Reason: Evaluation and Management) * Billing Information: * Visit Code: 27986 Office Visit, Est Pt., Level 4. Modifiers: 25 * Procedure Codes: 03341 SELF-MGMT EDUC & TRAIN, 1 PT. G8427 DOC MEDS VERIFIED W/PT OR RE. G8483 FLU IMM NO ORD/ADMIN DOC SAMUEL. Images * Eyebrow/Forehead Swelling 12/12/23 * D AND FAMILY COUNSELOR Electronically co-signed by Gautam Bowman MD, FAAAAI on 12/20/2023 at 03:24 PM CHILD AND FAMILY COUNSELOR Sign off status: Completed true * Provider: ALEX Mohan Date: 0 12/17/2023 Generated for Cullen jacobo/[place]/eTransmitting on: 0 02/08/2025 08:48 AM CDT History and Physical Notes * HPI (History [...] He is slated for cardiology appointment at [facility] in 01/2024. Back procedure is on hold at this time. He went to part-time at beginning of 2023. Historically, Neymar reported an episode of lower lip swelling that occurred approximately 10PM 08/05/23. He presented to [facility] where he was given IV Benadryl [...]
--- OUTSIDE RECORDS SUMMARY | 2025-02-08 08:48 | XMS_ITS ---
Author Organization [facility] Address [address] [place] [address] Care Team Providers Care Cemetery Vault Installer Name Role Phone Royce Elizondo MD Primary Care Provider Unavaila Tamika Lei Unavailable [phone] [employer]Migration, Provider Unavailable Unavailab le Allergies Allergen (clinical drug ingredient) Drug/Non Drug Allergy documented on EMR Reaction Allergy Type Onset Date Status hydromorphone Dilaudid other reaction Drug Allergy Active penicillin G Penicillin G Potassium rash Drug Allergy Active penicillin V Penicillin V Potassium rash Drug Allergy Active [facility] Encounter Medications Medication SIG (Take, Route, Frequency, Duration) Notes Start Date End Date Status predniSONE 20 MG 2 tab(s) orally once a day Not-Taking Aspirin 81 MG 1 TAB(S) ORALLY ONCE A DAY for 30 DAY(S) *Please review and pick correct [facility]ul [facility]. If intended option is not [...] review and pick correct strength-formul ation from [employer] options. If intended option is not shown, discontinue and re-order from Quick Search* Active Metoprolol Succinate ER 50 MG 1 tab(s) orally once a day Active amLODIPine Besylate 10 MG 1 tab(s) orally once a day Active Diclofenac Sodium 75 MG 1 tab(s) orally 2 times a day Active Encounters Encounter Location Date Provider Diagnosis [facility] - [address] [phone] 04/17/2024 Provider Gilberto Angioneurotic edema, initial encounter [...] review and pick correct strength-formulat ion from [employer] options. If intended option is not shown, discontinue and re-order from Quick Search* Metoprolol Succinate ER 50 MG 1 tab(s) orally once a day amLODIPine Besylate 10 MG 1 tab(s) orall y once a day Progress Notes * Neymar DE LA GARZA EDOB:1955 (69 yo M)Acc No.[id number]:04/17/2024 Patient: [place] MARJORIE Neymar Perlita Provider: Ayad Brower :1955 A ge:68 Y S ex:Male Date:04/17/2024 Address:[address] [place] [address] [id number] Pcp:Royce Elizondo MD Subjective: * Chief Complaints: * 1 . [facility]. * Medical History: * Medications: [...] *Please review and pick correct strength-formulation from [facility] options. If intended option is not [...] * Electronic signature of Jasmyn RAMOS-Migration on 02/08/2025 at 08:48 AM CDT Sign off status: Pending * Provider: Ayad bhagat Migration Date: 0 04/17/2024 Generated for Cullen ajcobo/[place]/Radha on: 0 02/08/2025 08:48 AM CDT
--- OUTSIDE RECORDS SUMMARY | 2025-02-08 08:48 | XMS_ITS ---
Author Organization [facility] Address [address] [place] [address] Care Team Providers Care Instrumentation Technician Name Role Phone Royce Elizondo MD Primary Care Provider Unavaila Tamika Lei Unavailable [phone] REASON FOR VISIT ARC follow-up Encounters Encounter Location Date Provider Diagnosis [facility] [address] [place] [address] 03/18/2024 Tamika Michelle Plan Of Treatment No Information Progress Notes * Neymar DE LA GARZA EDOB:1955 (69 yo M)Acc No.[id number]:03/18/2024 Progress Notes Patient: Neymar CALHOUN Provider: ALEX Mohan :1955 A ge:68 Y S ex:Male Date:03/18/2024 Address:[address] [place] [address], [facility] Pcp:Royce Elizondo MD Subjective: * Chief Complaints: * 1 . ARC follow-up. * Medical History: Objective: * Vitals: Assessment: Plan: * Treatment: * Billing Information: * Visit Code: * Procedure Codes: * Electronic signature of ALEX Khalil on 02/08/2025 at 08:48 AM CDT Sign off status: Pending * Provider: FARIHA MohanP-BC Date: 0 03/18/2024 Generated for Cullen jacobo/Clovis/Radha on: 0 02/08/2025 08:48 AM CDT
--- OUTSIDE RECORDS SUMMARY | 2025-02-08 08:49 | XMS_ITS | Patient Health Record ---
Author Organization [facility] Address [address] [place] [address] Care Team Providers Care Electrical Subcontractor Name Role Phone Royce Elizondo MD Primary Care Provider Unavaila Tamika Lei Unavailable [phone] ZZ-Migration, Provider Unavailable Unavailab le Allergies Allergen [...] review and pick correct strength-formul ation from Gydget options. If intended option is not shown, [...] review and pick correct strength-formul ation from Gydget options. 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 effect of angiotensin-conv erting-enzyme inhibitors, initial encounter (T46.4X5A) Active confirmed Encounters Encounter Location Date Provider Diagnosis [facility] - [address] [place] [address] 04/17/2024 Provider Gilberto Angioneurotic edema, initial encounter T78.3XXA and Essential (primary) hypertension I10 Assessments Encounter Date Diagnosis (ICD Code) Assessment Notes Treatment Notes Treatment Clinical Notes Section Notes 04/17/2024 Angioneurotic edema, initial encounter (ICD-10 - T78.3XXA) 04/17/2024 Essential (primary) hypertension (ICD-10 - I10) Plan Of Treatment No Information Insurance Providers Payer Name Payer Address Payer Phone Subscriber Number Group Number Insured Name Patient Relationship to Insured Coverage Start Date Coverage End Date UHC Medicare [address] [address] [place] [address] [id number] Neymar De La Garza Self - patient is the insured Medical (General) History Medical History History ICD Code Essential (primary) hypertension I10 Hyperlipidemia, unspecified E78.5 Obesity, unspecified E66.9 Surgical History Surgery Date(Month/Year) bowel resuction 2012 hernia 2015 Hospitalization History Reason Date(Month/Year) see surgery hx
--- OUTSIDE RECORDS SUMMARY | 2025-02-08 08:49 | XMS_ITS | Clinical Summary ---
Author Organization [facility] Address [address] [place] [address] Care Team Providers Care Safety Aide Name Role Phone Unavailable Primary Care Provider Unavailabl e Source Comments [facility] [employer],non-owned Affiliates and Associated Physician Practices is amultiple site organization consisting of ambulatory clinics and hospital sitesin [place], [place], [place] and [place]. This disclosure is being madepursuant to the Care Everywhere program and may not contain all information available regarding this patient. Last updated 18.[facility] Allergies No known active allergies Medications * [...] VACCINE (1 - 2023-2 5 season) 2024 DEPRESSION SCREENING 11/03/2024 INFLUENZA VACCINE (Season Ended) 2025 Respiratory Syncytial Virus (RSV) Vaccine Pt: or [...] to complete this topic MENINGOCOCCAL (Group B) VACC INE SHARED DECISION-MAKING Aged Out No longer eligibl e based on patient's age to complete this topic MENINGOCOCCAL GROUPS A/C/Y/W VACCINE Aged Out No longer eligible b ased on patient's age to complete this topic
[2025-02-08 09:41] LABS: Alanine Aminotransferase 60 U/L (6-50); Albumin Level 4.4 g/dL (3.5-5.1); Alkaline Phosphatase 74 U/L (38-126); Anion Gap 10 mmol/L (4-12); Aspartate Amino Transferase 31 U/L (17-59); Bilirubin,Total 0.7 mg/dL (0.2-1.3); Blood Urea Nitrogen 23 mg/dL (9-20); Calcium 9.1 mg/dL (8.4-10.2); Carbon Dioxide 27 mmol/L (22-30); Chloride 103 mmol/L (98-107); Estimated Glomerular Filt Rate > 60; Glucose 159 mg/dL (65-110); Potassium 4.4 mmol/L (3.4-5.0); Sodium 140 mmol/L (137-145)
[2025-02-08 10:39] LABS: Hemoglobin A1C 7.6 % (<5.7)
== END 2025-02-08 08:38 | disposition home or self-care (01) ==
PROVIDERS: PCP Family Medicine; Visit Provider Physician Assistant
DX: E11.9 Type 2 diabetes mellitus without complications (principal); I10 Essential (primary) hypertension
CPT/HCPCS: 36415; 80053; 83036

== ENCOUNTER 2025-03-10 13:31 | Outpatient (CLI) | payer MEDICARE, SELFPAY ==
--- NOTE | ~2025-03-10 | XR_ITS ---
Right Knee Technique: AP, lateral, and sunrise views were obtained. Clinical History: Pain Findings: No fracture or dislocation is seen. There is advanced tricompartmental degenerative change, with significant medial compartment narrowing.. Soft tissues are unremarkable. No joint effusion is seen. Impression: Severe tricompartmental degenerative change, as detailed above. Reviewed, dictated and finalized at location . Impression: Severe tricompartmental degenerative change, as detailed above.
--- NOTE | ~2025-03-10 | XR_ITS ---
Left Knee Technique: AP, lateral, and sunrise views were obtained. Clinical History: Pain Findings: No fracture or dislocation is seen. Osseous alignment is anatomic. Joint spaces are preserv ed without degenerative or erosive change. There is enthesopathic change of the distal quadriceps ten don and proximal patellar tendon. No joint effusion is seen. Impression: Enthesopathic changes about the patella, as detailed above. No acute abnormality. Reviewed, dictated and finalized at location M. Impression: Enthesopathic changes about the patella, as detailed above. No acute abnormality.
--- OUTSIDE RECORDS SUMMARY | 2025-03-10 13:34 | XMS_ITS ---
Author Organization [facility] [place] ([address]) Address [address] [place] [address] Care Team Providers Care Telesales Professional Name Role Phone Royce Elizondo MD Primary Care Provider Unavaila Tamika Lei Unavailable [phone] Allergies Allergen (clinical drug ingredient) Drug/Non Drug [...] 12/17/2023 Encounters Encounter Location Date Provider Diagnosis [facility] [address] [address] 12/17/2023 Tamika Michelle Angioneurotic edema, initial encounter [...] lip swelling occurred on 08/05/23. Treated at [facility] with IV Benadryl and steroids with [...] symptoms within 2 hours. -Records requested from [facility], still pending. -Continue to carry AIE at [...] lip swelling occurred on 08/05/23. Treated at [facility] with IV Benadryl and steroids with [...] symptoms within 2 hours. -Records requested from [facility], still pending. -Continue to carry AIE [...] 3 months for E&M Adverse effect of tbtdrazdomo-fibwkaueqn-jvbnzw inhibitors, initial encounter Continue strict avoidance of [...] Reason: Evaluation and Management Progress Notes * Neymar DE LA GARZA EDOB:1955 (68 yo M)Acc No.[id number]:12/17/2023 Progress Notes Patient: Neymar CALHOUN Provider: ALEX Mohan :1955 A ge:68 Y S ex:Male Date:12/17/2023 Address:[address] [place], [place] [address] Pcp:Royce Elizondo MD Subjective: * Chief Complaints: [...] He is slated for cardiology appointment at [facility] i n 01/2024. Back procedure is on hold at this time. He went to part-time at beginning of 2023. H istorically, Neymar reported an episode of lower lip swelling that occurred approximately 10PM 08/05/23. He presented to [facility] where he was given IV Benadryl [...] you a : n ever smoker S moking Smart Form Are you a: n ever [...] of carpet? 2 0 Do you have ulat-bx-purs carpeting? Y es What is the age [...] Reason T ype of Patient Reason: P rocedure refused Assessment: * Assessment: 1. A ngioneurotic edema, initial encounter - T78.3XXA (Primary) 2 . A dverse effect of qmahxvfgjiz-cvkuncehmu-nmwnrq inhibitors, initial encounter - T46.4X5A 3 . E ssential (primary) hypertension - I10 4 . A llergy status to penicillin - Z88.0 Plan: * Treatment: 2. A dverse effect of kturedqmnmy-idqckvlcmv-uwmbut inhibitors, initial encounter Notes: Continue strict avoidance [...] 9 8960 SELF-MGMT EDUC & TRAIN, 1 ETI5441 DOC MEDS VERIFIED W/PT OR NNL7364 FLU IMM NO ORD/ADMIN DOC SAMUEL * [...] the proper use of medications, MEDICATION EDUCATION:, Jamil (montelukast: serious neuropsychiatric events have been reported [...] REFERRAL TO ALTERNATIVE / PRIMARY CARE PROVIDER: Zhang marcos to general practitioner * Follow Up: 3 Months (Reason: Evaluation and Management) * Billing Information: * Visit Code: 53614 Office Visit, Est Pt., Level 4. Modifiers: 25 * Procedure Codes: 72043 SELF-MGMT EDUC & TRAIN, 1 PT. G8427 DOC MEDS VERIFIED W/PT OR RE. G8483 FLU IMM NO ORD/ADMIN DOC SAMUEL. Images * Eyebrow/Forehead Swelling 12/12/23 * ER MACHINE OPERATOR Electronically co-signed by Gautam Bowman MD, FAAAAI on 12/20/2023 at 03:24 PM CAPPER MACHINE OPERATOR Sign off status: Completed true * Provider: ALEX Mohan Date: 0 12/17/2023 Generated for Cullen jacobo/Clovis/eTransmitting on: 0 03/10/2025 01:34 PM CDT History and Physical Notes * HPI [...] left eye and lower lip swelling on 2/10/24. Benadryl taken both instances with syptoms resolution [...] He is slated for cardiology appointment at [facility] in 01/2024. Back procedure is on hold at this time. He went to part-time at beginning of 2023. Historically, Neymar reported an episode of lower lip swelling that occurred approximately 10PM 08/05/23. He presented to [facility] where he was given IV Benadryl [...]
--- OUTSIDE RECORDS SUMMARY | 2025-03-10 13:35 | XMS_ITS | Clinical Summary ---
Author Organization [facility] Address [address] [place] [address] Care Team Providers Care Tower Erector Name Role Phone Unavailable Primary Care Provider Unavailabl e Source Comments [facility],non-owned Affiliates and Associated Physician Practices is amultiple site organization consisting of ambulatory clinics and hospital sitesin [place] and [place]. This disclosure is being madepursuant to the Care Everywhere program and may not contain all information available regarding this patient. Last updated 18.[facility] Allergies No known active allergies Medications * Be aware that medications may not be up to date on this document. Alwaysverify current medications with the patient. metoprolol tartrate IR (LOPRESSOR) 100 MG tablet Take 100 mg by mouth. 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
--- OUTSIDE RECORDS SUMMARY | 2025-03-10 13:35 | XMS_ITS | Patient Health Record ---
Author Organization [facility] [facility] ([address]) Address [address] [place] [address] Care Team Providers Care Floor Covering Printer Name Role Phone Royce Elizondo MD Primary Care Provider Unavaila Tamika Lei Unavailable [phone] ZZ-Migration, Provider Unavailable Unavailab le Allergies Allergen [...] review and pick correct strength-formul ation from RemitPro options. If intended option is not shown, [...] review and pick correct strength-formul ation from RemitPro options. If intended option is not shown, [...] Problem Status W/U Status Risk Notes Problem Obesity, unspecified (E66.9) Active confirmed Problem Hyperlipidemia (09796380) Hyperlipidemia, unspecified (E78.5) Active confirmed Problem Essential hypertension (32546107) Essential (primary) hypertension (I10) Active confirmed Problem Angioneurotic edema (44458968) Angioneurotic edema, initial encounter (T78.3XXA) Active confirmed Problem Allergy to penicillin (56538160) Allergy status to penicillin (Z88.0) Active confirmed Problem Angiotensin-conver ting-enzyme inhibitor adverse reaction (983495921) Adverse effect of angiotensin-conv erting-enzyme inhibitors, initial encounter (T46.4X5A) Active confirmed Encounters Encounter Location Date Provider Diagnosis [facility] - [address] [place] [address] 04/17/2024 Provider Gilberto Angioneurotic edema, initial encounter [...] Coverage End Date UHC Medicare [address] [address] [place] [address] [phone] [id number] Neymar De La Garza Self - patient is the insured Medical (General) History Medical History History ICD Code Essential (primary) hypertension I10 Hyperlipidemia, unspecified E78.5 Obesity, unspecified E66.9 Surgical History Surgery Date(Month/Year) bowel resuction 2012 hernia 2015 Hospitalization History Reason Date(Month/Year) see surgery hx
--- OUTSIDE RECORDS SUMMARY | 2025-03-10 13:35 | XMS_ITS ---
Author Organization [facility] ([address]) Address [address] [place] [address] Care Team Providers Care Audit Officer Name Role Phone Royce Elizondo MD Primary Care Provider Unavaila Tamika Lei Unavailable [phone] ZZ-Migration, Provider Unavailable Unavailab le Allergies Allergen (clinical drug ingredient) Drug/Non Drug Allergy documented on EMR Reaction Allergy Type Onset Date Status hydromorphone Dilaudid other reaction Drug Allergy Active penicillin G Penicillin G Potassium rash Drug Allergy Active penicillin V Penicillin V Potassium rash Drug Allergy Active REASON FOR VISIT [facility] Encounter Medications Medication SIG (Take, Route, Frequency, Duration) Notes Start Date End Date Status predniSONE 20 MG 2 tab(s) orally once a day Not-Taking Aspirin 81 MG 1 TAB(S) ORALLY ONCE A DAY for 30 DAY(S) *Please review and pick correct strength-formul ation from [facility] options. If intended option is not [...] review and pick correct strength-formul ation from Ring options. If intended option is not shown, discontinue and re-order from Quick Search* Active Metoprolol Succinate ER 50 MG 1 tab(s) orally once a day Active amLODIPine Besylate 10 MG 1 tab(s) orally once a day Active Diclofenac Sodium 75 MG 1 tab(s) orally 2 times a day Active Encounters Encounter Location Date Provider Diagnosis [facility] - [address] [address] 04/17/2024 Provider RICHARD-Leonarda Angioneurotic edema, initial encounter T78.3XXA and Essential [...] review and pick correct strength-formulat ion from Ring options. If intended option is not shown, discontinue and re-order from Quick Search* Metoprolol Succinate ER 50 MG 1 tab(s) orally once a day amLODIPine Besylate 10 MG 1 tab(s) orall y once a day Progress Notes * Neymar DE LA GARZA EDOB:1955 (69 yo M)Acc No.[id number]:04/17/2024 Patient: Neymar CALHOUN Provider: Ayad Brower :1955 A ge:68 Y S ex:Male Date:04/17/2024 Address:[address] [place] [address], [facility] Pcp:Royce Elizondo MD Subjective: * [...] *Please review and pick correct strength-formulation from [facility] options. If intended option is not [...] * Electronic signature of Jasmyn RAMOS-Migration on 03/10/2025 at 01:35 PM CDT Sign off status: Pending * Provider: Ayad bhagat Migration Date: 04/17/2024 Generated for Cullen jacobo/Clovis/Radha on: 03/10/2025 01:35 PM CDT
--- OUTSIDE RECORDS SUMMARY | 2025-03-10 13:35 | XMS_ITS ---
Author Organization [facility] [place] ([address]) Address [address] [place] [address] Care Team Providers Care Manager Retirement Name Role Phone Royce Elizondo MD Primary Care Provider Unavaila Tamika Lei Unavailable [phone] REASON FOR VISIT ARC follow-up Encounters Encounter Location Date Provider Diagnosis [facility] [place] [address] [place] [address] 03/18/2024 Tamika Michelle Plan Of Treatment No Information Progress Notes * Neymar DE LA GARZA EDOB:1955 (69 yo M)Acc No.[id number]:03/18/2024 Progress Notes Patient: Cheyenne Neymar AMADOR Provider: ALEX Mohan :1955 A ge:68 Y S ex:Male Date:03/18/2024 Address:[address] [place] [address], [place], [place] Pcp:Royce Elizondo MD Subjective: * Chief Complaints: * 1 . ARC follow-up. * Medical History: Objective: * Vitals: Assessment: Plan: * Treatment: * Billing Information: * Visit Code: * Procedure Codes: * Electronic signature of ALEX Khalil on 03/10/2025 at 01:34 PM CDT Sign off status: Pending * Provider: GURVINDER Mohan- Date: 0 03/18/2024 Generated for Cullen jacobo/Cloivs/Radha on: 0 03/10/2025 01:34 PM CDT
== END 2025-03-10 13:32 | disposition home or self-care (01) ==
PROVIDERS: PCP Family Medicine; Visit Provider Anesthesiology Pain Medicine
DX: M76.892 Other specified enthesopathies of left lower limb, excluding foot (principal); M76.52 Patellar tendinitis, left knee; M17.0 Bilateral primary osteoarthritis of knee
CPT/HCPCS: 73562

== ENCOUNTER 2025-04-11 08:26 | Outpatient (CLI) | payer MEDICARE, SELFPAY ==
--- OUTSIDE RECORDS SUMMARY | 2025-04-11 08:47 | XMS_ITS ---
Author Organization [facility] [place] ([address]) Address [address] [place] [address] Care Team Providers Care Pipeline Maintenance Supervisor Name Role Phone Royce Elizondo MD Primary Care Provider Unavaila Tamika Lei Unavailable [phone] REASON FOR VISIT ARC follow-up Encounters Encounter Location Date Provider Diagnosis [facility] [address] [place] [address] 03/18/2024 Tamika Michelle Plan Of Treatment No Information Progress Notes * Neymar DE LA GARZA EDOB:1955 (69 yo M)Acc No.[id number]:03/18/2024 Progress Notes Patient: Cheyenne Neymar AMADOR Provider: ALEX Mohan :1955 A ge:68 Y S ex:Male Date:03/18/2024 Address:[address] [place] [address], [place], [place] Pcp:Royce Elizondo MD Subjective: * Chief Complaints: * 1 . ARC follow-up. * Medical History: Objective: * Vitals: Assessment: Plan: * Treatment: * Billing Information: * Visit Code: * Procedure Codes: * Electronic signature of ALEX Khalil on 04/11/2025 at 08:46 AM CDT Sign off status: Pending * Provider: GURVINDER Mohan- Date: 0 03/18/2024 Generated for Cullen jacobo/Clovis/Radha on: 0 04/11/2025 08:46 AM CDT
--- OUTSIDE RECORDS SUMMARY | 2025-04-11 08:47 | XMS_ITS ---
Author Organization [facility] ([address]) Address [address] [place] [address] Care Team Providers Care Manager Food Safety Name Role Phone Royce Elizondo MD Primary Care Provider Unavaila Tamika Lei Unavailable [phone] [employer], Provider Unavailable Unavailab le Allergies Allergen (clinical drug ingredient) Drug/Non Drug Allergy documented on EMR Reaction Allergy Type Onset Date Status hydromorphone Dilaudid other reaction Drug Allergy Active penicillin G Penicillin G Potassium rash Drug Allergy Active penicillin V Penicillin V Potassium rash Drug Allergy Active REASON FOR VISIT [facility] Con[facility] Encounter Medications Medication SIG (Take, Route, Frequency, Duration) Notes Start Date End Date Status predniSONE 20 MG 2 tab(s) orally once a day Not-Taking Aspirin 81 MG 1 TAB(S) ORALLY ONCE A DAY for 30 DAY(S) *Please review and pick correct strength-formul ation from [facility] options. If intended option is not shown, [...] review and pick correct strength-formul ation from netomat options. If intended option is not shown, discontinue and re-order from Quick Search* Active Metoprolol Succinate ER 50 MG 1 tab(s) orally once a day Active amLODIPine Besylate 10 MG 1 tab(s) orally once a day Active Diclofenac Sodium 75 MG 1 tab(s) orally 2 times a day Active Encounters Encounter Location Date Provider Diagnosis [facility] - [address] [address] 04/17/2024 Provider RICHARD-Leonarda Angioneurotic edema, initial encounter [...] review and pick correct strength-formulat ion from netomat options. If intended option is not shown, discontinue and re-order from Quick Search* Metoprolol Succinate ER 50 MG 1 tab(s) orally once a day amLODIPine Besylate 10 MG 1 tab(s) orall y once a day Progress Notes * Neymar DE LA GARZA EDOB:1955 (69 yo M)Acc No.[id number]:04/17/2024 Patient: Neymar CALHOUN Provider: Ayad Brower :1955 A ge:68 Y S ex:Male Date:04/17/2024 Address:[address] [place] [address], [facility] Pcp:Royce Elizondo MD Subjective: * Chief [...] *Please review and pick correct strength-formulation from [facility] options. If intended option is not shown, [...] * Procedure Codes: * Electronic signature of aJsmyn RAMOS-Migration on 04/11/2025 at 08:46 AM CDT Sign off status: Pending * Provider: Ayad bhagat Migration Date: 04/17/2024 Generated for Cullen jacobo/Clovis/Radha on: 04/11/2025 08:46 AM CDT
--- OUTSIDE RECORDS SUMMARY | 2025-04-11 08:47 | XMS_ITS | Clinical Summary ---
Author Organization [facility] Address [address] [place] [address] Care Team Providers Care Raymond Mill Operator Name Role Phone Unavailable Primary Care Provider Unavailabl e Source Comments [facility],non-owned Affiliates and Associated Physician Practices is amultiple site organization consisting of ambulatory clinics and hospital sitesin [place], [place], [place] and [place]. This disclosure is being madepursuant to the Care Everywhere program and may not contain all information available regarding this patient. 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
--- OUTSIDE RECORDS SUMMARY | 2025-04-11 08:47 | XMS_ITS | Patient Health Record ---
Author Organization [employer] [facility] [employer] [place] ([address]) Address [address] [place] [address] Care Team Providers Care Frame Aligner Name Role Phone Royce Elizondo MD Primary Care Provider Unavaila Tamika Lei Unavailable [phone] ZZ-Migration, Provider Unavailable Unavailab le Allergies Allergen [...] review and pick correct strength-formul ation from [employer] options. If intended option is not shown, [...] review and pick correct strength-formul ation from [employer] options. If intended option is not shown, [...] Status W/U Status Risk Notes Problem Obesity (123532529) Obesity, unspecified (E66.9) Active confirmed Problem Hyperlipidemia (37479453) Hyperlipidemia, unspecified (E78.5) Active confirmed Problem Essential hypertension (80246280) Essential (primary) hypertension (I10) Active confirmed Problem Angioneurotic edema (49984856) Angioneurotic edema, initial encounter (T78.3XXA) Active confirmed Problem Allergy to penicillin (37273371) Allergy status to penicillin (Z88.0) Active confirmed Problem Angiotensin-conver ting-enzyme inhibitor adverse reaction (175463127) Adverse effect of angiotensin-conv erting-enzyme inhibitors, initial encounter (T46.4X5A) Active confirmed Encounters Encounter Location Date Provider Diagnosis [facility] - [address] [place] [address] 04/17/2024 Provider RICHARD-Leonarda Angioneurotic edema, initial encounter [...] Coverage End Date UHC Medicare [address] [address] [place] [address] [id number] Neymar De La Garza Self - patient is the insured Medical (General) History Medical History History ICD Code Essential (primary) hypertension I10 Hyperlipidemia, unspecified E78.5 Obesity, unspecified E66.9 Surgical History Surgery Date(Month/Year) bowel resuction 2012 hernia 2015 Hospitalization History Reason Date(Month/Year) see surgery hx
[2025-04-11 09:44] LABS: Alanine Aminotransferase 64 U/L (6-50); Albumin Level 4.3 g/dL (3.5-5.1); Alkaline Phosphatase 56 U/L (38-126); Anion Gap 10 mmol/L (4-12); Aspartate Amino Transferase 35 U/L (17-59); Bilirubin,Total 0.8 mg/dL (0.2-1.3); Blood Urea Nitrogen 24 mg/dL (9-20); Calcium 9.4 mg/dL (8.4-10.2); Carbon Dioxide 24 mmol/L (22-30); Chloride 106 mmol/L (98-107); Estimated Glomerular Filt Rate > 60; Glucose 146 mg/dL (65-110); Potassium 4.2 mmol/L (3.4-5.0); Sodium 140 mmol/L (137-145); Total Protein 7.5 g/dL (6.3-8.2)
[2025-04-11 10:07] LABS: Hemoglobin A1C 7.5 % (<5.7)
== END 2025-04-11 08:27 | disposition home or self-care (01) ==
LOC: ANHLAB 08:27
PROVIDERS: PCP Family Medicine; Visit Provider Physician Assistant
DX: E78.5 Hyperlipidemia, unspecified (principal); E11.9 Type 2 diabetes mellitus without complications; I10 Essential (primary) hypertension
CPT/HCPCS: 36415; 80053; 83036

== ENCOUNTER 2025-08-30 08:23 | Outpatient (CLI) | payer MEDICARE, SELFPAY ==
--- OUTSIDE RECORDS SUMMARY | 2024-03-18 12:30 | XMS_ITS ---
Author Organization [facility] [place] ([address]) Address [address] [place] [address] Care Team Providers Care Section 8 Property Manager Name Role Phone Royce Elizondo MD Primary Care Provider Unavaila Tamika Lei Unavailable [phone] REASON FOR VISIT ARC follow-up Encounters Encounter Location Date Provider Diagnosis [facility] [place] [address] [place] [address] 03/18/2024 Tamika Michelle Plan Of Treatment No Information Progress Notes * Neymar DE LA GARZA EDOB:1955 (69 yo M)Acc No.[id number]:03/18/2024 Progress Notes Patient: Cheyenne Neymar AMADOR Provider: ALEX Mohan :1955 A ge:68 Y S ex:Male Date:03/18/2024 Address:[address] [place] [address], [place], [id number] Pcp:Royce Elizondo MD Subjective: * Chief Complaints: * 1 . ARC follow-up. * Medical History: Objective: * Vitals: Assessment: Plan: * Treatment: * Billing Information: * Visit Code: * Procedure Codes: * Electronic signature of ALEX Khalil on 08/30/2025 at 08:43 AM CDT Sign off status: Pending * Provider: GURVINDER Mohan- Date: 0 03/18/2024 Generated for Cullen jacobo/[place]/Radha on: 1 08:43 AM CDT
--- OUTSIDE RECORDS SUMMARY | 2024-04-17 16:30 | XMS_ITS ---
Author Organization [facility] [place] ([address]) Address [address] [place] [address] Care Team Providers Care General Accounting Clerk Name Role Phone Royce Elizondo MD Primary Care Provider Unavaila Tamika Lei Unavailable [phone] [facility]Migration, Provider Unavailable Unavailab le Allergies Allergen (clinical drug ingredient) Drug/Non Drug Allergy documented on EMR Reaction Allergy Type Onset Date Status hydromorphone Dilaudid other reaction Drug Allergy Active penicillin G Penicillin G Potassium rash Drug Allergy Active penicillin V Penicillin V Potassium rash Drug Allergy Active REASON FOR VISIT [facility] To [facility] Conversion Encounter Medications Medication SIG (Take, Route, Frequency, Duration) Notes Start Date End Date Status predniSONE 20 MG 2 tab(s) orally once a day Not-Taking Aspirin 81 MG 1 TAB(S) ORALLY ONCE A DAY; Duration: 30 DAY(S) *Please review and pick correct strength-formul ation from [facility] options. If intended option is not shown, discontinue and re-order from Quick Search* Not-Taking Tamsulosin HCl 0.4 MG 1 cap(s) orally once a day; Duration: 30 day(s) Active Famotidine 20 MG 1 tab(s) orally once a day Not-Taking Lipitor 20 MG 1 tab(s) orally once a day; Duration: 30 day(s) Active Cetirizine HCl 10 MG 1 tab(s) orally BID; Duration: 30 days Active Pepcid 20 MG 1 tab(s) orally 2 times a day; Duration: 30 days Active hydroCHLOROthiazide 25 MG 1 tab(s) orally once a day Active Montelukast Sodium 10 MG 1 tab(s) orally once a day; Duration: 90 days Active EPINEPHrine 0.3 MG DIRECTED INTRAMUSCULARLY ONCE *Please review and pick correct strength-formul ation from [employer] options. If intended option is not shown, discontinue and re-order from Quick Search* Active Metoprolol Succinate ER 50 MG 1 tab(s) orally once a day Active amLODIPine Besylate 10 MG 1 tab(s) orally once a day Active Diclofenac Sodium 75 MG 1 tab(s) orally 2 times a day Active Encounters Encounter Location Date Provider Diagnosis [facility] [address] [address] 04/17/2024 Provider Gilberto Angioneurotic edema, initial encounter T78.3XXA and Essential (primary) hypertension I10 Assessments Encounter Date Diagnosis (ICD Code) Assessment Notes Treatment Notes Treatment Clinical Notes Section Notes 04/17/2024 Angioneurotic edema, initial encounter (ICD-10 - T78.3XXA) 04/17/2024 Essential (primary) hypertension (ICD-10 - I10) Plan Of Treatment Medication Medication Name Sig Start Date Stop Date Notes Cetirizine HCl 10 MG 1 tab(s) orally BID ; Duration: 30 days Pepcid 20 MG 1 tab(s) orally 2 times a day; Duration: 30 days hydroCHLOROthiazide 25 MG 1 tab(s) orall y once a day Montelukast Sodium 10 MG 1 tab(s) orally once a day; Duration: 90 days EPINEPHrine 0.3 MG DIRECTED INTRAMUSCULARLY ONCE *Please review and pick correct strength-formulat ion from [employer] options. If intended option is not shown, discontinue and re-order from Quick Search* Metoprolol Succinate ER 50 MG 1 tab(s) orally once a day amLODIPine Besylate 10 MG 1 tab(s) orall y once a day Progress Notes * Neymar DE LA GARZA EDOB:1955 (69 yo M)Acc No.[id number]:04/17/2024 Patient: Neymar CALHOUN Provider: Ayad Brower :1955 A ge:68 Y S ex:Male Date:04/17/2024 Address:[address] [place] [address], [facility] Pcp:Royce Elizondo MD Subjective: * Chief Complaints: * 1 . Multum To Med[facility] Conversion Encounter. * Medical History: * Medications: T aking Tamsulosin HCl 0.4 MG Capsule 1 cap(s) orally once a day , Taking Lipitor 20 MG Tablet 1 tab(s) orally once a day , Taking Diclofenac Sodium 75 MG Tablet Delayed Release 1 tab(s) orally 2 times a day , Not-Taking/PRN predniSONE 20 MG Tablet 2 tab(s) orally once a day , Not-Taking/PRN Famotidine 20 MG Tablet 1 tab(s) orally once a day , Not-Taking/PRN Aspirin 81 MG TABLET 1 TAB(S) ORALLY ONCE A DAY , Notes to Pharmacist: *Please review and pick correct strength-formulation from [facility] options. If intended option is not shown, discontinue and re-order from Quick Search* * Allergies: P enicillin G Potassium: rash, Penicillin V Potassium: rash, Dilaudid: other reaction. Objective: * Vitals: Assessment: * Assessment: 1. A ngioneurotic edema, initial encounter - T78.3XXA (Primary) 2 . E ssential (primary) hypertension - I10 Plan: * Treatment: 2. E ssential (primary) hypertension Continue Metoprolol Succinate ER Tablet Extended Release 24 Hour, 50 MG, 1 tab(s), orally, once a day; C ontinue amLODIPine Besylate Tablet, 10 MG, 1 tab(s), orally, once a day; C ontinue hydroCHLOROthiazide Tablet, 25 MG, 1 tab(s), orally, once a day. * Billing Information: * Visit Code: * Procedure Codes: * Electronic signature of Jasmyn RAMOS-Migration on 08/30/2025 at 08:43 AM CDT Sign off status: Pending * Provider: Ayad bhagat Migration Date: 0 04/17/2024 Generated for Cullen jacobo/[place]/eTransmitting on: 1 08:43 AM CDT
--- OUTSIDE RECORDS SUMMARY | 2025-08-30 08:44 | XMS_ITS | Patient Health Record ---
Author Organization [employer] [facility] ([id number]) Address [address] [place] [address] Care Team Providers Care Director Of Operations Home Health Name Role Phone Royce Elizondo MD Primary Care Provider Unavaila Tamika Lei Unavailable [phone] Allergies Allergen (clinical drug ingredient) Drug/Non Drug [...] 0.4 mg 1 cap(s) orally once a day; Duration: 30 day(s) Active ASPIRIN 81 mg 1 tab(s) orally once a day; Duration: 30 day(s) Not-Taking Cetirizine HCl 10 MG 1 tab(s) orally BID; Duration: 30 days Active Pepcid 20 MG 1 tab(s) orally 2 times a day; Duration: 30 days Active amLODIPine Besylate 10 MG 1 tab(s) orally once a day Active hydroCHLOROthiazide 25 MG 1 tab(s) orally once a day Active Aspirin 81 MG 1 TAB(S) ORALLY ONCE A DAY; Duration: 30 DAY(S) *Please review and pick correct strength-formul ation from [employer] options. If intended option is not shown, discontinue and re-order from Quick Search* Not-Taking Tamsulosin HCl 0.4 MG 1 cap(s) orally once a day; Duration: 30 day(s) Active Famotidine 20 MG 1 tab(s) orally once a day Not-Taking DICLOFENAC sodium 75 mg 1 tab(s) orally 2 times a day Active LIPITOR 20 mg 1 tab(s) orally once a day; Duration: 30 day(s) Active Lipitor 20 MG 1 tab(s) orally once a day; Duration: 30 day(s) Active Diclofenac Sodium 75 MG 1 tab(s) orally 2 times a day Active predniSONE 20 MG 2 tab(s) orally once a day Not-Taking MONTELUKAST 10 mg 1 tab(s) orally once a day; Duration: 90 days Active EPINEPHRINE 0.3 mg as directed intramuscularly once Active EPINEPHrine 0.3 MG DIRECTED INTRAMUSCULARLY ONCE *Please review and pick correct strength-formul ation from [employer] options. If intended option is not shown, discontinue and re-order from Quick Search* Active CETIRIZINE 10 mg 1 tab(s) orally BID; Duration: 30 days Active PEPCID 20 mg 1 tab(s) orally 2 times a day; Duration: 30 days Active HYDROCHLOROTHIAZIDE 25 mg 1 tab(s) orally once a day Active METOPROLOL SUCCINATE ER 50 mg 1 tab(s) orally once a day Active AMLODIPINE 10 mg 1 tab(s) orally once a day Active Montelukast Sodium 10 MG 1 tab(s) orally once a day; Duration: 90 days Active Social History Tobacco Use: Social History Observation Description Date Details (start date - stop date) Never Smoker NA - NA Smoking Smart Form: Question Answer Notes Are you a: never smoker Problems Problem Type SNOMED Code ICD Code Onset Dates Problem Status W/U Status Risk Notes Problem Obesity (199645578) Obesity, unspecified (E66.9) Active confirmed Problem Hyperlipidemia (00898346) Hyperlipidemia, unspecified (E78.5) Active confirmed Problem Essential hypertension (54409379) Essential (primary) hypertension (I10) Active confirmed Problem 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, initial encounter (T78.3XXA) Active confirmed Problem Allergy to penicillin (08471677) Allergy status to penicillin (Z88.0) Active confirmed Problem 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) Adverse effect of angiotensin-conv erting-enzyme inhibitors, initial encounter (T46.4X5A) Active confirmed Plan Of Treatment No Information Insurance Providers Payer Name Payer Address Payer Phone Subscriber Number Group Number Insured Name Patient Relationship to Insured Coverage Start Date Coverage End Date [employer] [address] [address] [place] [address] [id number] Neymar De La Garza Self - patient is the insured Medical (General) History Medical History History ICD Code Essential (primary) hypertension I10 Hyperlipidemia, unspecified E78.5 Obesity, unspecified E66.9 Surgical History Surgery Date(Month/Year) bowel resuction 2012 hernia 2015 Hospitalization History Reason Date(Month/Year) see surgery hx
--- OUTSIDE RECORDS SUMMARY | 2025-08-30 08:44 | XMS_ITS | Clinical Summary ---
Author Organization [facility] Address [address] [place] [address] Care Team Providers Care Merchandise Director Name Role Phone Unavailable Primary Care Provider Unavailabl e Source Comments [facility],non-owned Affiliates and Associated Physician Practices is amultiple site organization consisting of ambulatory clinics and hospital sitesin [place], [place], [place] and [place]. This disclosure is being madepursuant to the Care Everywhere program and may not contain all information available regarding this patient. 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
[2025-08-30 08:48] LABS: Hematocrit 41.4 % (42.0-52.0); Hemoglobin 14.1 g/dL (14.0-18.0); Mean Corpuscular HGB Conc 34.1 g/dl (32-36); Mean Corpuscular Hemoglobin 34.3 pg (26-34); Mean Corpuscular Volume 100.7 fl (80-100); Platelet Count Result 159 k/mm3 (150-375); Red Blood Count 4.11 M/mm3 (4.6-6.20); White Blood Count 6.3 K/mm3 (4.5-10.0)
[2025-08-30 08:50] LABS: Add Urine Microscopic? NO; Appearance Urine Clear (Clear); Glucose Urine UA Negative (Negative); Leukocyte Esterase Ur Negative LEU/UL (Negative); Nitrate Urine Negative (Negative); Specific Grav Ur 1.023 (1.001-1.035)
[2025-08-30 08:59] LABS: Hemoglobin A1C 5.9 % (<5.7)
[2025-08-30 09:14] LABS: Alanine Aminotransferase 59 U/L (6-50); Albumin Level 4.4 g/dL (3.5-5.1); Alkaline Phosphatase 67 U/L (38-126); Anion Gap 9 mmol/L (4-12); Aspartate Amino Transferase 36 U/L (17-59); Bilirubin,Total 0.7 mg/dL (0.2-1.3); Blood Urea Nitrogen 15 mg/dL (9-20); Calcium 8.8 mg/dL (8.4-10.2); Carbon Dioxide 26 mmol/L (22-30); Chloride 103 mmol/L (98-107); Cholesterol 142 mg/dL (0-200); Estimated Glomerular Filt Rate > 60; Glucose 108 mg/dL (65-110); HDL Direct 30 mg/dL; Potassium 3.8 mmol/L (3.4-5.0); Sodium 138 mmol/L (137-145); Total Protein 7.5 g/dL (6.3-8.2); Triglycerides 126 mg/dL (<150)
[2025-08-30 09:28] LABS: MALB Creatinine Ratio < 3.7 mg/g (0-30)
[2025-08-30 09:50] LABS: Prostate Specific Antigen 0.9 ng/mL (< OR = 4.0); Thyroid Stimulating Hormone 1.530 uIU/mL (0.465-4.680)
== END 2025-08-30 08:24 | disposition home or self-care (01) ==
LOC: ANHLAB 08:26
PROVIDERS: PCP Family Medicine; Visit Provider Physician Assistant
DX: R35.1 Nocturia (principal); E11.9 Type 2 diabetes mellitus without complications; I10 Essential (primary) hypertension; E78.5 Hyperlipidemia, unspecified; M54.50 Low back pain, unspecified; G89.29 Other chronic pain; M25.559 Pain in unspecified hip; I47.19 Other supraventricular tachycardia; K76.0 Fatty (change of) liver, not elsewhere classified; Z12.5 Encounter for screening for malignant neoplasm of prostate; Z80.42 Family history of malignant neoplasm of prostate
CPT/HCPCS: 36415; 80053; 80061; 81003; 82043; 83036; 84153; 84443; 85027